=== PATIENT | female | born 1955 | race Caucasian/White ===

== ENCOUNTER 2021-03-03 11:00 | Inpatient (IN) | payer MEDICARE, SELFPAY ==
[2021-03-03] VITALS (16 sets, daily range): BP systolic 103–125; BP diastolic 50–84; PULSE 56–74; RESP 16–23; TEMP 36.8–38.2; O2SAT 93–100; BMI 37.0; BMI 14.9; BMI 38.5; BMI 38.6
--- NOTE | 2021-03-03 11:23 | CT_ITS ---
STUDY: CT ABDOMEN AND PELVIS WITH CONTRAST REASON FOR EXAM: Female, 65 years old. Right flank pain. Fever. Elevated white blood cell count. RADIATION DOSAGE (If Supplied By Facility): CTDIvol = ( 13.27 ) mGy, DLP = ( 1199.75 ) mGycm TECHNIQUE: Transaxial images were obtained from the dome of the diaphragm to the symphysis pubis without oral contrast. IV 100mL Isovue-300 was administered. Sagittal and coronal images were reconstructed. Individualized dose optimization techniques were used for this CT. COMPARISON: None. FINDINGS: The visualized lung bases are unremarkable. The visualized portions of the heart are within normal limits. There is decreased attenuation of the liver consistent with steatosis. There are surgical clips in the gallbladder fossa consistent with a prior cholecystectomy. Normal spleen. Normal pancreas. Normal bilateral adrenal glands. Mild degree of left hydronephrosis with left perinephric stranding. Punctate calculus in the lower pole calyx of the right kidney. There is evidence of a proximal right ureteral dilatation due to a 7.5 mm calculus in the proximal portion of the right ureter just distal to the ureteropelvic junction. There is a 3 mm calculus in the lower pole calyx of the left kidney. Normal visualized stomach. Normal small intestine. Normal colon. The appendix is visualized and appears normal. Normal abdominal aorta. Normal inferior vena cava. Normal retroperitoneum. Normal urinary bladder. There is a small umbilical hernia containing fat. The neck of the hernia measures 3.6 cm. There are diffuse degenerative changes of the visualized lumbar spine. CT/Abdomen/Pelvis W IV Cont ONLY IMPRESSION: 7.5 mm calculus in the proximal portion of the right ureter causing right hydronephrosis and hydroureter as well as perinephric stranding. Nonobstructive calculus in the lower pole calyx of both the right and left kidneys. Small umbilical hernia containing fat. Electronically Signed: Kalia Garnica MD at 13:28 EDT , Service support ,
--- NOTE | 2021-03-03 11:23 | CT_ITS ---
STUDY: CT HEAD STROKE PROTOCOL W/O CONTRAST INJECTION REASON FOR EXAM: Female, 65 years old. Fell and hit head on blood thinner RADIATION DOSAGE (If Supplied By Facility): CTDIvol = ( 44.99 ) mGy, DLP = ( 812.98 ) mGycm TECHNIQUE: Transaxial CT imaging of the brain was performed without administration of intravenous contrast material. Individualized dose optimization techniques were used for this CT. COMPARISON: Comparison is made with prior study dated 01/13/2016. FINDINGS: Normal soft tissue structures. Normal calvarium. Normal size ventricles and extra-axial spaces for the patient''s age. There are areas of decreased attenuation within the white matter tracts of the supratentorial brain, consistent with microvascular disease changes. 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 Normal brainstem. Normal cerebellum. There is no intracranial hemorrhage. There are no findings of an acute ischemic infarction. Normal visualized paranasal sinuses. CT/STROKE Brain/Head without Cont IMPRESSION: Old lacunar infarct in the left insular cortex. N.B. : The above information has been verbally conveyed by Kalia Garnica MD to Geoffrey Andriy on 03/03/2021 13:23:16 (ET). Electronically Signed: Kalia Garnica MD at 13:24 EDT , Service support ,
--- NOTE | 2021-03-03 11:25 | EDS_ITS ---
HPI History of Present Illness Chief Complaint: Weakness Informant: patient and family Onset/Context/Timing Onset: Days Context: Gradual Onset Current Severity: Mild Maximum Severity: Mild Narrative Narrative: 65-year-old female history of UTIs and kidney stones. She is on Eliquis due to her prior pulmonary embolus. States she has not really felt well since Monday. She has had nausea but no vomiting. No diarrhea or dysuria. States she was so weak last night that she fell into the bathtub and hit her head was having trouble getting up so she laid there for a while and then was able to get out of the tub. She denies any headache or neck pain. She denies any chest pain or shortness of breath. Says her abdominal discomfort she was having on the right flank area is now resolved. Prior similar symptoms: No Recent Illness/Hospitalization: No PFSH PFSH Medical History Hypertension Kidney stones Pulmonary embolism Home Medications duloxetine 30 mg PO BID 01/13/16 [History Last Taken Unknown] apixaban [Eliquis] 5 mg PO DAILY 03/03/21 [History Last Taken Unknown] lisinopril-hydrochlorothiazide 1 tab PO DAILY 03/03/21 [History Last Taken Unknown] topiramate 100 mg PO DAILY 03/03/21 [History Last Taken Unknown] Allergy/AdvReac Type Severity Reaction Status Date / Time No Known Allergies Allergy Verified 01/13/16 21:23 Surgical History Hx of cholecystectomy Social History Smoking Status: Never smoker ROS ROS ED ROS Narrative Older female states she has not felt well for last several days. Had abdominal pain that is since resolved. Denies any dysuria. Review of Systems ROS Unobtainable: Denies due to encephalopathy Constitutional Constitutional ED: Denies fever(s) Eyes Eyes: Denies change in vision ENT ENT ED: Denies ear pain or sore throat Cardiovascular Cardiovascular: Denies chest pain or palpitations Respiratory/Chest Respiratory/Chest: Denies cough or dyspnea Gastrointestinal Gastrointestinal: Reports abdominal pain and nausea; Denies diarrhea or vomiting Genitourinary Genitourinary ED: Denies dysuria, hematuria or urinary frequency Musculoskeletal Musculoskeletal: Denies arthralgias or myalgias Integumentary Denies rash Neurologic Neurologic: Denies headache(s) Psychiatric Psychiatric: Denies depression Endocrine Endocrinology: Denies polyuria Allergic/Immunologic Allergic/Immunologic ED: Denies urticaria EXAM Physical Exam Narrative Exam Narrative: Older female accompanied by her daughter. No acute distress. Vital signs stable afebrile. HEENT exam unremarkable. Atraumatic. No hematoma. Pupils are reactive light. Neck nontender. Lungs clear to auscultation bilaterally. Heart regular rhythm no murmur. Chest wall nontender. Abdomen soft nontender normal bowel sounds no peritoneal signs. No reproducible tenderness. Right upper and right lower quadrants are unre markable. Back nontender. Patient is moving all 4 extremities. Nontender without deformity. Normal range of motion. Normal building consultant strength. Normal dorsi plantar flexion. Neurologically she is awake alert with no focal motor deficits. Const Vital Signs: 03/03/21 11:01 03/03/21 11:13 03/03/21 11:23 Temperature 99 F Temperature Source Oral Pulse Rate 74 Respiratory Rate 23 H Respiratory Effort Normal Non-Labored Blood Pressure 114/52 L 125/74 H Blood Pressure Mean 72 91 Pulse Ox 93 Oxygen Delivery Method 03/03/21 13:14 03/03/21 13:16 Temperature 98.4 F Temperature Source Oral Pulse Rate 56 L Respiratory Rate 22 H Respiratory Effort Blood Pressure 103/84 H Blood Pressure Mean 90 Pulse Ox 97 Oxygen Delivery Method Room Air HEENT Reports moist mucous membranes Negative for trauma or tenderness Eyes PERRL and EOMs intact bilaterally Neck no lymphadenopathy and supple Chest Wall inspection of chest normal Resp normal respiratory effort and clear to auscultation bilaterally Cardio regular rate, regular rhythm and no murmurs GI normal to inspection, nondistended, normoactive bowel sounds, non-tender, non- distended and no masses Inspection: Negative for abdominal distention Auscultation: normoactive bowel sounds Palpation: soft; Negative for tender Back/Spine no CVA tenderness General Back: Negative for CVA tenderness Cervical Spine: Negative for cervical spine tenderness Thoracic Spine / Upper Back: Negative for thoracic spinal tenderness or paraspinal muscle tenderness Lumbar Spine / Lower Back: Negative for lumbar spinal tenderness Extremity normal to inspection General Extremety ED: Negative for edema or tenderness General Extremity: Negative for edema Neuro oriented x3 and CN's II-XII intact bilaterally Sensorium / Orientation: alert; Negative for orientation impaired, lethargic or stuporous Motor Exam: strength 5/5 throughout; Negative for general weakness Psych mental status grossly normal Skin no rashes or lesions noted MDM MDM MDM Narrative Medical decision making narrative: Older female with generalized weakness. Exam benign. She did recently fall and hit her head she is on Eliquis so we will CAT scan her head. Due to her abdominal pain which is since resolved she will get a CAT scan of her abdomen. Labs and urinalysis are being obtained. She will be treated with IV fluids and Zofran for her nausea. CBC showing elevated white count of 15.5 consistent with possible infection. Electrolytes basically unremarkable except for sodium 133. Potassium 3.0. BUN and creatinine are normal. Liver enzymes are unremarkable. Lipase normal. UA shows nitrates blood consistent with a kidney stone seen on CAT scan and 5-10 white cells no bacteria was seen. It was sent for culture. CT flank study shows a proximal third 7.5 mm ureteral stone on the right with hydroureter and hydronephrosis. I discussed all test results the patient and family. She was started on IV Rocephin. CAT scan of the brain showed no acute abnormality. No acute intracranial bleed. Read by the radiologist and reviewed by me. Repeat exam patient is doing well at 2:30 PM. I have hospitalist on page for admission and urologist. Lab Data Attestation: I reviewed the patient's lab results. Labs: Laboratory Results - last 24 hr 03/03/21 03/03/21 03/03/21 11:00 11:00 12:35 WBC 15.5 H RBC 4.35 Hgb 13.0 Hct 39.2 MCV 90.1 MCH 29.9 MCHC 33.2 RDW Std Deviation 44.6 H RDW Coeff of Yun 13.5 Plt Count 281 MPV 10.7 Immature Gran % (Auto) 0.600 Neut % (Auto) 82.8 H Lymph % (Auto) 8.1 L [place] % (Auto) 5.4 Eos % (Auto) 2.8 Baso % (Auto) 0.3 Absolute Neuts (auto) 12.9 H Absolute Lymphs (auto) 1.26 Nucleated RBC % 0 Sodium 133 L Potassium 3.0 L Chloride 105 Carbon Dioxide 18.0 L Anion Gap 10 BUN 16 Creatinine 1.02 Estim Creat Clear Calc 43.49 Est GFR (MDRD) Af Amer 70 Est GFR (MDRD) Non-Af 58 L BUN/Creatinine Ratio 15.7 Glucose 156 H Calcium 9.7 Total Bilirubin 1.20 H AST 16 ALT 15 Alkaline Phosphatase 86 Total Protein 7.4 Albumin 3.0 L Globulin 4.4 H Albumin/Globulin Ratio 0.7 L Lipase 60 L Urine Color Becca Urine Clarity Cloudy Urine pH 5.0 Ur Specific [place] 1.025 Urine Protein 100 H Urine Glucose (UA) Normal Urine Ketones 5 H Urine Occult Blood 250 H Urine Nitrite Positive H Urine Bilirubin 1 H Urine Urobilinogen 1 H Ur Leukocyte Esterase 500 H Urine RBC > 100 SEEN Urine WBC 5-10 SEEN Ur Squamous Epith Cells 0 SEEN Urine Bacteria 0 SEEN Urine Mucus 2+ Radiography Diagnostic Testing: Radiology Impression Abdomen/Pelvis CT 03/03/21 11:23 IMPRESSION: 7.5 mm calculus in the proximal portion of the right ureter causing right hydronephrosis and hydroureter as well as perinephric stranding. Nonobstructive calculus in the lower pole calyx of both the right and left kidneys. Small umbilical hernia containing fat. 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 N.B. : The above information has been verbally conveyed by Kalia Garnica MD to Geoffrey Ashraf on 03/03/2021 13:23:16 (ET). 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 N.B. : The above information has been verbally conveyed by Kalia Garnica MD to Geoffrey Ashraf on 03/03/2021 13:23:16 (ET). Electronically Signed: Kalia Garnica MD at 13:24 EDT , Service support , Discharge Plan Triage Chief Complaint: Weakness ED Provider: Hugh Ashraf Dx/Rx/DC Orders Clinical Impression: Generalized weakness, Kidney stone on right side, Acute UTI, Leukocytosis, Fall Primary Care Provider: Joe Carmichael
[2021-03-03 11:41] LABS: Absolute Lymphocyte Count 1.26 X10^3/uL (0.83-4.51); Absolute Neutrophil Count 12.9 X10^3/uL (2.0-7.7); Basophil# 0.04 X10^3/uL; Basophil% 0.3 % (0-1); Eosinophil# 0.43 X10^3/uL; Eosinophils% 2.8 % (0-5); Hematocrit 39.2 % (37-47); Lymphocyte # 1.26 X10^3/ul (0.83-4.51); Lymphocyte % 8.1 % (19-41); Mean Corp Hgb Conc 33.2 g/dL (32-36); Mean Corpuscular Hgb 29.9 pg (27.0-32.0); Mean Corpuscular Volume 90.1 fL (81-99); Mean Platelet Vol. 10.7 fl (6.2-12.0); Monocyte# 0.84 X10^3/uL; Monocyte% 5.4 % (0-10); NRBC Flagged by Analyzer 0 % (0-5); Neutrophil # 12.88 X10^3/uL (2.7-7.7); Neutrophil % 82.8 % (47-70); Platelet Count 281 K/mm3 (150-450); RBC Distribution Width CV 13.5 % (11.6-14.6); RBC Distribution Width SD 44.6 fl (35.1-43.9); Red Blood Count 4.35 M/mm3 (4.2-5.4); White Blood Count 15.5 K/mm3 (4.4-11.0)
[2021-03-03] MEDS: 0.9% Normal Saline 1,000 ML 1000 ML IV (11:43)
[2021-03-03] MEDS: Ondansetron 4 MG/2 ML Vial IV (11:43)
[2021-03-03 11:51] LABS: ALB/GLOB Ratio 0.7 RATIO (0.9-2.4); AST(SGOT) 16 U/L (15-37); Alanine Aminotransfer ALT/SGPT 15 U/L (13-56); Alkaline Phosphatase 86 U/L (45-117); Anion Gap 10 (5-15); BUN 16 mg/dL (7-18); BUN/Creat Ratio 15.7 RATIO (10-20); Calcium,Total 9.7 mg/dL (8.5-10.1); Chloride 105 mmol/L (98-107); Creatinine, Serum 1.02 mg/dL (0.55-1.02); EST Glomerular Filtration Rate 58 mL/min (>60); Est Glom Filt Rate - Afr Amer 70 mL/min (>60); Estimated Creatinine Clearance 43.49 ml/min; Globulin 4.4 g/dL (2.2-4.2); Glucose 156 mg/dL (74-106); Lipase 60 U/L (73-393); Protein, Total 7.4 g/dL (6.4-8.2); Sodium Level 133 mmol/L (136-145)
[2021-03-03 12:40] LABS: Bacteria 0 SEEN /hpf (None Seen); Color, Urine Amber (Yellow); Glucose, Dipstick Normal (Normal); Ketone-Dipstick 5 mg/dl (Negative); Leukocyte Esterase-Dipstick 500 /ul (Negative); Nitrite-Dipstick Positive (Negative); Occult Blood-Urine 250 /ul (Negative); Protein-Dipstick 100 mg/dl (Negative); Specific Gravity, Urine 1.025 (1.002-1.030); Squamous Epithelial Cells - UA 0 SEEN /hpf (5-10); Urine Clarity Cloudy (Clear); Urine Urobilinogen 1 mg/dl (Normal)
[2021-03-03 12:41] LABS: Urine Bilirubin Dipstick 1 mg/dL (Negative)
[2021-03-03 12:47] LABS: Mucous, Urine 2+ /hpf (<or=2+); Red Blood Cells-Urine > 100 SEEN /hpf (0-5); White Blood Cells 5-10 SEEN /hpf (0-5)
--- NOTE | 2021-03-03 14:43 | PCM.CONS.U ---
Assessment & Plan Assessment/Plan (1) Kidney stone on right side: PLAN: plan for OR today for stent placement for obstruction and infection. to or first available time. HPI Consult Data Date of Consult: 03/03/21 HPI Narrative HPI Narrative: JOSLYN ABRAHAM, is a 65 F who presents to the emergency room with right flank pain she has obstructing stone in the right proximal ureter with hydronephrosis she can be admitted by the medical service for her urinary tract infection. Plan to take her today for stent placement of the right side. [facility] Medical History Hypertension Kidney stones Pulmonary embolism Home Medications duloxetine 30 mg PO BID 01/13/16 [History Last Taken Unknown] apixaban [Eliquis] 5 mg PO DAILY 03/03/21 [History Last Taken Unknown] lisinopril-hydrochlorothiazide 1 tab PO DAILY 03/03/21 [History Last Taken Unknown] topiramate 100 mg PO DAILY 03/03/21 [History Last Taken Unknown] Allergy/AdvReac Type Severity Reaction Status Date / Time No Known Allergies Allergy Verified 01/13/16 21:23 Surgical History Hx of cholecystectomy Social History Smoking Status: Never smoker ROS Constitutional Constitutional: Denies chills, fever(s) or malaise Eyes Eyes: Denies blurry vision or change in vision ENT HEENT: Reports none Cardiovascular Cardiovascular: Denies chest pain or palpitations Respiratory/Chest Respiratory/Chest: Denies cough or shortness of breath with exertion Gastrointestinal Gastrointestinal: Denies abdominal pain, constipation or diarrhea Genitourinary Genitourinary: Reports systems reviewed and no addt'l complaints, except as documented Musculoskeletal Musculoskeletal: Denies back pain, joint stiffness or joint swelling Integumentary Integumentary: Denies dry skin, jaundice, lesions or rash Neurologic Neurologic: Denies confusion, syncope or weakness Psychiatric Psychiatric: Reports none; Denies anxiety or depression Endocrine Endocrinology: Denies excessive sweating, fatigue or flushing Hematologic/Lymphatic Hematologic/Lymphatic: Denies anemia, easy bleeding or easy bruising Physical Exam Const alert and oriented x3 General Appearance: cooperative HEENT normocephalic, head/scalp atraumatic, EAC's normal and TM's normal bilaterally Eyes PERRL and EOMs intact bilaterally Pupil: sluggish Neck no lymphadenopathy, supple and no JVD General: trachea midline Lymph Lymphatic: no lymphadenopathy noted, lymphedema and lymphadenopathy Resp normal respiratory effort, normal air movement and clear to auscultation bilaterally Cardio regular rate, regular rhythm and peripheral pulses 2+ throughout GI soft to palpation, non-tender and non-distended Extremity normal capillary refill and no clubbing, cyanosis or edema General Extremity: no tenderness to palpation of joints or extremities Skin no rashes or lesions noted General Skin Exam: turgor normal Lesions: no lesions Rashes: no rashes Neuro CN's II-XII intact bilaterally Speech: speech normal Motor Exam: strength 5/5 throughout; Negative for general weakness Psych thought process normal, cooperative and affect normal Appearance: appropriate Lab / Micro Data Result Diagrams: 03/03/21 11:00 03/03/21 11:00 Labs: Laboratory Results - last 24 hr 03/03/21 03/03/21 03/03/21 11:00 11:00 12:35 WBC 15.5 H RBC 4.35 Hgb 13.0 Hct 39.2 MCV 90.1 MCH 29.9 MCHC 33.2 RDW Std Deviation 44.6 H RDW Coeff of Yun 13.5 Plt Count 281 MPV 10.7 Immature Gran % (Auto) 0.600 Neut % (Auto) 82.8 H Lymph % (Auto) 8.1 L [place] % (Auto) 5.4 Eos % (Auto) 2.8 Baso % (Auto) 0.3 Absolute Neuts (auto) 12.9 H Absolute Lymphs (auto) 1.26 Nucleated RBC % 0 Sodium 133 L Potassium 3.0 L Chloride 105 Carbon Dioxide 18.0 L Anion Gap 10 BUN 16 Creatinine 1.02 Estim Creat Clear Calc 43.49 Est GFR (MDRD) Af Amer 70 Est GFR (MDRD) Non-Af 58 L BUN/Creatinine Ratio 15.7 Glucose 156 H Calcium 9.7 Total Bilirubin 1.20 H AST 16 ALT 15 Alkaline Phosphatase 86 Total Protein 7.4 Albumin 3.0 L Globulin 4.4 H Albumin/Globulin Ratio 0.7 L Lipase 60 L Urine Color Becca Urine Clarity Cloudy Urine pH 5.0 Ur Specific [place] 1.025 Urine Protein 100 H Urine Glucose (UA) Normal Urine Ketones 5 H Urine Occult Blood 250 H Urine Nitrite Positive H Urine Bilirubin 1 H Urine Urobilinogen 1 H Ur Leukocyte Esterase 500 H Urine RBC > 100 SEEN Urine WBC 5-10 SEEN Ur Squamous Epith Cells 0 SEEN Urine Bacteria 0 SEEN Urine Mucus 2+ Radiology Impression Abdomen/Pelvis CT 03/03/21 11:23 IMPRESSION: 7.5 mm calculus in the proximal portion of the right ureter causing right hydronephrosis and hydroureter as well as perinephric stranding. Nonobstructive calculus in the lower pole calyx of both the right and left kidneys. Small umbilical hernia containing fat. 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 N.B. : The above information has been verbally conveyed by Kalia Garnica MD to Geoffrey Ashraf on 03/03/2021 13:23:16 (ET). Electronically Signed: Kalia Garnica MD at 13:24 EDT , Service support , ADDENDUM: 03/03/21 1331
--- NOTE | 2021-03-03 14:51 | HP.PCM.HOS_ITS ---
HPI - General General Date of Admission: 03/03/21 Date of Service: 03/03/21 Chief Complaint: R flank pain, Nausea, Malaise, Fever, Falls. HPI Narrative The patient is a 65 y/o F w/ PMHx: History of PE/DVTs on eliquis, HTN, Anxiety and Depression, Obesity who presents to the [facility] ED on 03/03/21 with history of recent episode of right-sided flank discomfort, rated when it occurred 7-8 out of 10 in severity, sharp, which was transient and she noted improved following usage of a K pad and rest however she then started to have onset significant fatigue, malaise, nausea without emesis in addition to significantly elevated fevers, chills and onset falls with lightheadedness and dizziness prompting eventual ED presentation for evaluation. Patient denies any specific dysuria associated with her acute presentation. ED work-up included T 99, heart rate 74, BP 114/52, respiratory rate 23, 97% on room air, CBC with WBC 15.5, hemoglobin 13, platelet 281 with left shift, CMP with sodium 133, potassium 3,, Dex at 18, BUN/creatinine 16/1.02, glucose 156, total bilirubin 1.20 otherwise hepatic profile not marked appearing, lipase 60, urine analysis with specific gravity 1.025, protein 100, ketone 5, occult blood 250, positive nitrite, urine bilirubin 1, urine urobilinogen 1, urine leukocyte esterase 500, greater than 100 urine RBC, 5-10 urine WBC, no urine specific bacteria noted, urine culture pending, CT abdomen and pelvis with 7.5 mm calculus in the proximal portion of the right ureter causing right hydronephrosis and hydroureter as well as perinephric stranding, nonobstructive calculus lower in the lower pole calyx of both right and left kidneys, small umbilical hernia containing fat. In the ED patient ministered IV Rocephin as well as IV fluids. ED physician did discuss case with urologist, Dr. Boogie with planned transition from the ED to the OR. [facility] Medical History (Updated 03/03/21 @ 14:[address] Hugh Ashraf MD) Hypertension Kidney stones Pulmonary embolism Home Medications duloxetine 30 mg PO BID 01/13/16 [History Last Taken 03/03/21] apixaban [Eliquis] 5 mg PO DAILY 03/03/21 [History Last Taken 03/03/21] bupropion HCl [Wellbutrin XL] 75 mg PO DAILY 03/03/21 [History Last Taken 03/03/21] lisinopril-hydrochlorothiazide 1 tab PO DAILY 03/03/21 [History Last Taken 03/03/21] topiramate 100 mg PO DAILY 03/03/21 [History Last Taken 03/03/21] Allergy/AdvReac Type Severity Reaction Status Date / Time No Known Allergies Allergy Verified 03/03/21 15:44 Family History (Updated 03/03/21 @ 18:[address] Angelita Garcia MD) Mother Lung disease Father Kidney disease Surgical History (Updated 03/03/21 @ 18:[address] Angelita Garcia MD) History of 3 sections Hx of cholecystectomy Social History (Updated 03/03/21 @ 18:[address] Angelita Garcia MD) household members: none Smoking Status: Never smoker alcohol intake: never substance use type: does not use ROS ROS Narrative Admission Review of Systems: CONSTITUTIONAL: No weight loss,+ fever, chills, weakness or fatigue. HEENT: Eyes: No visual loss, blurred vision, double vision or yellow sclerae. Ears, Nose, Throat: No hearing loss, sneezing, congestion, runny nose or sore throat. SKIN: No rash or itching, lesions, wounds. CARDIOVASCULAR: No chest pain, chest pressure or chest discomfort, palpitations, edema, orthopnea, syncopal events. RESPIRATORY: No shortness of breath, cough or sputum, wheezing, hemoptysis. GASTROINTESTINAL: + anorexia, nausea without vomiting, abdominal pain/flank pain, no diarrhea, melena, BRBPR. GENITOURINARY: No dysuria, frequency, urgency or retention. NEUROLOGICAL: + Lightheadedness, dizziness, fall. No headache, syncope, paralysis, ataxia, numbness or tingling in the extremities, focal weakness, change in bowel or bladder control, seizure. MUSCULOSKELETAL: + muscle, back pain, joint pain or stiffness. HEMATOLOGIC: No anemia, bleeding or bruising. LYMPHATICS: No enlarged nodes. No history of splenectomy. PSYCHIATRIC: + history of depression or anxiety. ENDOCRINOLOGIC: No reports of sweating, cold or heat intolerance. No polyuria or polydipsia. ALLERGIES: No history of asthma, hives, eczema or rhinitis. Vital Signs Vital Signs Vital Signs: 03/03/21 11:01 03/03/21 11:13 03/03/21 11:23 Temperature 99 F Temperature Source Oral Pulse Rate 74 Respiratory Rate 23 H Respiratory Effort Normal Non-Labored Blood Pressure 114/52 L 125/74 H Blood Pressure Mean 72 91 Pulse Ox 93 Oxygen Delivery Method 03/03/21 13:14 03/03/21 13:16 Temperature 98.4 F Temperature Source Oral Pulse Rate 56 L Respiratory Rate 22 H Respiratory Effort Blood Pressure 103/84 H Blood Pressure Mean 90 Pulse Ox 97 Oxygen Delivery Method Room Air Weight Weight: 202 lb 13.204 oz Body Mass Index (BMI) 37.0 Physical Exam Narrative Physical Examination: General: awake, alert, oriented x 3 and cooperative, laying in the ED bed, visibly uncomfortable, notes she still nauseated. Skin: normal color, normal turgor, no icterus, no cyanosis. HEENT: AT/NC, EOMI, PERRLA, dry MM, no carotid bruits or JVD noted. Lungs: CTA bilaterally, moderate effort, mild decrease BL bases, no rales, ronchi or wheezing. Heart: Regular rate and rhythm; no gallop, rub audible. Abdomen: soft, obese, mild discomfort just right-sided palpation and mild right flank pain to palpation, ND, distant normal BS, no HSM. Extremities: no cyanosis, clubbing, or edema. Neurological: patient awake, alert, oriented as noted, cognitive function intact; pupils equally reactive to light and accommodation, cranial nerves II- XII grossly normal, moving all 4 extremities, no focal deficits, strength moderately global decrease secondary to acute presentation complaints. Psychiatric: affect appears fatigued, ill-appearing, no acute evidence of depressive or anxiety feelings. Lab / Micro Data Result Diagrams: 03/03/21 11:00 03/03/21 11:00 Labs: Laboratory Results - last 24 hr 03/03/21 03/03/21 03/03/21 11:00 11:00 12:35 WBC 15.5 H RBC 4.35 Hgb 13.0 Hct 39.2 MCV 90.1 MCH 29.9 MCHC 33.2 RDW Std Deviation 44.6 H RDW Coeff of Yun 13.5 Plt Count 281 MPV 10.7 Immature Gran % (Auto) 0.600 Neut % (Auto) 82.8 H Lymph % (Auto) 8.1 L [place] % (Auto) 5.4 Eos % (Auto) 2.8 Baso % (Auto) 0.3 Absolute Neuts (auto) 12.9 H Absolute Lymphs (auto) 1.26 Nucleated RBC % 0 Sodium 133 L Potassium 3.0 L Chloride 105 Carbon Dioxide 18.0 L Anion Gap 10 BUN 16 Creatinine 1.02 Estim Creat Clear Calc 43.49 Est GFR (MDRD) Af Amer 70 Est GFR (MDRD) Non-Af 58 L BUN/Creatinine Ratio 15.7 Glucose 156 H Calcium 9.7 Total Bilirubin 1.20 H AST 16 ALT 15 Alkaline Phosphatase 86 Total Protein 7.4 Albumin 3.0 L Globulin 4.4 H Albumin/Globulin Ratio 0.7 L Lipase 60 L Urine Color Becca Urine Clarity Cloudy Urine pH 5.0 Ur Specific [place] 1.025 Urine Protein 100 H Urine Glucose (UA) Normal Urine Ketones 5 H Urine Occult Blood 250 H Urine Nitrite Positive H Urine Bilirubin 1 H Urine Urobilinogen 1 H Ur Leukocyte Esterase 500 H Urine RBC > 100 SEEN Urine WBC 5-10 SEEN Ur Squamous Epith Cells 0 SEEN Urine Bacteria 0 SEEN Urine Mucus 2+ Radiology Impression Abdomen/Pelvis CT 03/03/21 11:23 IMPRESSION: 7.5 mm calculus in the proximal portion of the right ureter causing right hydronephrosis and hydroureter as well as perinephric stranding. Nonobstructive calculus in the lower pole calyx of both the right and left kidneys. Small umbilical hernia containing fat. 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 N.B. : The above information has been verbally conveyed by Kalia Garnica MD to Geoffrey Ashraf on 03/03/2021 13:23:16 (ET). 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 N.B. : The above information has been verbally conveyed by Kalia Garnica MD to Geoffrey Ashraf on 03/03/2021 13:23:16 (ET). 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 1. Acute Flank Pain, Fevers, Malaise secondary to Acute Obstructive Right Sided Ureteral Obstructive Calculus with Hydronephrosis/hydroureter, Acute UTI: Will admit to [facility], maintain on aggressive hydration, maintain on IV Rocephin, maintain NPO for intervention w/ diet resumption following, PRN IV/Oral pain regimen, PRN anti-emetics, monitor I&Os. Urology consulted and planned transition from ED to OR. 2. Lightheadedness, dizziness with falls: CT of the head with no acute intracranial finding, incidental stroke as noted below, likely secondary to #1, continue hydration, fall precautions. 3. Hypokalemia: Admission K+ 3.0, magnesium level pending, supplementation given, repeat level in AM. 4. Hyperglycemia: Admission glucose 156, no history of diabetes but especially given incidental findings on CT head will obtain A1c. 5. Incidentally noted old lacunar infarct: CT of the head obtained secondary to recent fall with noted old lacunar infarct in the left insular cortex, currently maintained on Eliquis given DVT/PE history, obtaining A1c given elevated blood sugars, continue hypertensive regimen, FLP in AM, TSH pending, ECHO w/ bubble study. 6. History of recurrent DVT/PE: We will continue patient home Eliquis regimen, currently listing 5 mg daily, likely 5 mg twice daily, will restart in a.m. given operative intervention currently. Patient denies any hypercoagulable history but unclear if actually performed studies. 7. Obesity: Weight loss and lifestyle changes encouraged. 8. Anxiety and depression: We will continue patient home duloxetine and wellbutrin regimen. 9. Hypertension: Continue home regimen including lisinopril, hydrochlorothiazide with hold parameters, PRN hydralazine. 10. Trigeminal neuralgia, history of: We will continue patient home topiramate regimen. 11. DVT prophylaxis: SCDs, continue patient home Eliquis next dose in a.m. given operative intervention currently. 12. CODE status: Patient denies having healthcare power of civil attorney or living will in place. Daughter is present. She notes she is interested in getting information therefore encourage her to discuss these items with case management/social work. Discussed CODE status at length including difference between FULL code, DNR-CCA and DNR-CC status. Following discussions about the differences in these status, requested Full Code status. Advanced Care Planning Face to Face Time: 16 minutes. Visit Charges Inpatient E&M: 85669 Init Hosp L3 Procedures Hospitalists Procedures: 76069 Advncd Care Plan 30 Min
--- NOTE | 2021-03-03 15:11 | ED.RN ---
REPORT GIVEN TO JAHAIRA
--- NOTE | 2021-03-03 15:17 | NURSING ---
OR THEN MED SURG WHITE UTI, RT URETERAL KIDNEY STONE, WEAKNESS, LEUKOCYTOSIS, FALLS
[2021-03-03] MEDS: Ceftriaxone 1 GM/50 ML BAG IV (15:53)
--- NOTE | 2021-03-03 16:18 | PCM.OPRPT ---
Report of Operation Date of Procedure: 03/03/21 Pre-Operative Diagnosis: Right obstructing ureteral calculi with sepsis Post-Operative Diagnosis: Same Surgery/Procedure Performed:: Cystoscopy right retrograde pyelogram right stent placement Description of Surgical Findings:: Patient was taken back to the operating room after induction of general anesthesia, the patient was placed in dorsolithotomy position. The urethra and genitals were prepped and draped in usual sterile fashion. Using a 21 Pakistani rigid cystourethroscope the entire length of the urethra was normal then went into the bladder. Identified the trigone the left and right ureteral orifice. I then cannulated the rigth orifice and advanced a wire up into the kidney. I then backloaded a 5 Pakistani open ended catheter over the wire and injected contrast to delineate the anatomy. Contrast was injected into the ureter he can see contrast going up to the kidney in a smooth fashion there were no filling defects stones along the course of the ureter the kidney filled out nicely with no filling defects within the kidney. After the retrograde was performed I then used fluoroscopic images and guidance to advanced a wire up into the kidney and over the 0.038 glidewire I advanced a 6 Pakistani by 26 cm double pigtail stent. I then pulled the 0.038 Glidewire off and the stent coiled in the kidney bladder good position. The bladder was then drained. We confirmed the position of the stent by fluoroscopy. Patient anesthetic was reversed and was taken back to the PACU in good condition. Surgeon: diana Type of Anesthesia: MAC and Topical Anesth Drains: right stent Admit VTE Documentation VTE Present on Admission: No VTE Mechan Device Prophylaxis: SCD's
[2021-03-03] MEDS: Lidocaine Jelly 2% 20 ML Syringe (URO-JET) 20 APPLIC (16:24)
--- NOTE | 2021-03-03 16:53 | ECHOD_ITS ---
Reason For Study: CVA Procedure This was a 2D Doppler, Color Flow transthoracic echocardiogram. Exam performed portable in patient room. Left Ventricle Normal LV size. The estimated ejection fraction is 65 %. Normal diastology for age. No regional wall motion abnormalities noted. Right Ventricle Normal RV size. Normal systolic function. Atria Normal left atrium. Normal right atrium. No doppler evidence for ASD. Bubble contrast study negative for right to left interatrial shunt. Mitral Valve There is no mitral valve stenosis. No mitral valve insufficiency. Tricuspid Valve There is no tricuspid stenosis. Mild tricuspid valve insufficiency. Pulmonary artery systolic pressure is 30-35 mmHg. Aortic Valve Trisinus/trileaflet aortic valve. There is no aortic stenosis. No aortic valve insufficiency. Pulmonic Valve There is no pulmonic valvular stenosis. No pulmonic valve insufficiency. Great Vessels Normal aortic root. Pericardium/Pleural No pericardial effusion. Medication Performed a rapid injection of agitated mix of 9 cc saline and 1cc air to assess for atrial septal defect. MMode/2D Measurements & Calculations LVIDd: 4.8 cm IVSd: 0.82 cm Ao root diam: 3.2 cm LVIDs: 3.4 cm LVPWd: 0.94 cm RVDd: 3.5 cm FS: 29.1 % LAV(MOD-bp): 62.0 ml LVAd ap4: 28.1 cm2 LVAd ap2: 26.6 cm2 LAV(MOD-bp) Indexed: 31.7 ml/m2 LVLd ap4: 7.8 cm LVLd ap2: 7.7 cm LAV(MOD-sp2): 54.2 ml EDV(MOD-sp4): 82.7 ml EDV(MOD-sp2): 74.9 ml LAV(MOD-sp4): 66.8 ml EDV(sp4-el): 85.9 ml EDV(sp2-el): 78.0 ml LVAs ap4: 15.5 cm2 LVAs ap2: 13.4 cm2 LVLs ap4: 6.6 cm LVLs ap2: 6.6 cm ESV(MOD-sp4): 30.5 ml ESV(MOD-sp2): 24.0 ml ESV(sp4-el): 31.1 ml ESV(sp2-el): 23.1 ml EF(MOD-sp4): 63.1 % EF(MOD-sp2): 67.9 % EF(sp4-el): 63.8 % SV(MOD-sp4): 52.2 ml SV(MOD-sp2): 50.8 ml SV(sp4-el): 54.8 ml LA A4 area: 22.7 cm2 LA dimension(2D): 3.5 cm RA A4 area: 19.4 cm2 Doppler Measurements & Calculations MV E max marquis: 100.9 cm/sec Lat Peak E' Marquis: 15.0 cm/sec Med Peak E' Marquis: 11.9 cm/sec MV A max marquis: 51.4 cm/sec E/E' lat: 6.7 E/E' med: 8.5 MV E/A: 2.0 Ao V2 max: 173.9 cm/sec LV V1 max: 134.2 cm/sec PA V2 max: 102.5 cm/sec Ao max P.1 mmHg LV V1 max P.2 mmHg TR max marquis: 259.5 cm/sec TR max P.0 mmHg ECHO/Echo Complete Interpretation Summary The estimated ejection fraction is 65 %. Normal diastology for age. Ordering Physician: Angelita Garcia Referring Physician: Joe Carmichael M.D. Performed By: Joann Sandhu RDCS
[2021-03-03 16:58] LABS: Magnesium 1.6 mg/dL (1.6-2.6)
[2021-03-03] MEDS: Potassium Chloride Oral Tablet 20 MEQ 40 MEQ PO (20:16)
[2021-03-03] MEDS: DULoxetine Hcl 30 MG Capsule PO (22:14)
[2021-03-03] MEDS: Acetaminophen 325 MG Tablet 650 MG PO (22:23)
[2021-03-04] VITALS (7 sets, daily range): BP systolic 93–113; BP diastolic 48–61; PULSE 59–67; RESP 16–18; TEMP 36.7–37.9; O2SAT 97–100; BMI 38.6
[2021-03-04] MEDS: 0.9% Normal Saline 1,000 ML 125 ML IV ×2 (01:56→12:09)
[2021-03-04 05:55] LABS: Absolute Lymphocyte Count 1.02 X10^3/uL (0.83-4.51); Absolute Neutrophil Count 11.4 X10^3/uL (2.0-7.7); Basophil# 0.04 X10^3/uL; Basophil% 0.3 % (0-1); Eosinophil# 0.07 X10^3/uL; Eosinophils% 0.5 % (0-5); Hematocrit 36.4 % (37-47); Hemoglobin 11.9 g/dL (12.0-15.0); Lymphocyte # 1.02 X10^3/ul (0.83-4.51); Lymphocyte % 7.3 % (19-41); Mean Corp Hgb Conc 32.7 g/dL (32-36); Mean Corpuscular Hgb 30.1 pg (27.0-32.0); Mean Corpuscular Volume 91.9 fL (81-99); Mean Platelet Vol. 10.2 fl (6.2-12.0); Monocyte# 1.29 X10^3/uL; Monocyte% 9.3 % (0-10); NRBC Flagged by Analyzer 0 % (0-5); Neutrophil # 11.44 X10^3/uL (2.7-7.7); Neutrophil % 82.2 % (47-70); Platelet Count 203 K/mm3 (150-450); RBC Distribution Width CV 13.7 % (11.6-14.6); RBC Distribution Width SD 47.1 fl (35.1-43.9); Red Blood Count 3.96 M/mm3 (4.2-5.4); White Blood Count 13.9 K/mm3 (4.4-11.0)
[2021-03-04] MEDS: APIXABAN 5 MG TABLET PO ×2 (05:56→21:50)
[2021-03-04 06:30] LABS: ALB/GLOB Ratio 0.6 RATIO (0.9-2.4); AST(SGOT) 34 U/L (15-37); Alanine Aminotransfer ALT/SGPT 29 U/L (13-56); Albumin, Serum 2.4 g/dL (3.2-5.0); Alkaline Phosphatase 91 U/L (45-117); Anion Gap 7 (5-15); BUN 11 mg/dL (7-18); BUN/Creat Ratio 14.2 RATIO (10-20); Calcium,Total 9.1 mg/dL (8.5-10.1); Chloride 108 mmol/L (98-107); Cholesterol 105 mg/dL (200); Creatinine, Serum 0.78 mg/dL (0.55-1.02); EST Glomerular Filtration Rate 79 mL/min (>60); Est Glom Filt Rate - Afr Amer 96 mL/min (>60); Estimated Creatinine Clearance 56.87 ml/min; Globulin 3.9 g/dL (2.2-4.2); Glucose 119 mg/dL (74-106); High Density Lipoprotein 50 mg/dL; Potassium 3.6 mmol/L (3.5-5.1); Protein, Total 6.3 g/dL (6.4-8.2); Sodium Level 137 mmol/L (136-145); Triglycerides 56 mg/dL; Very Low Density Lipoprotein 11 mg/dL (5-40)
--- NOTE | 2021-03-04 07:46 | PCM.CONS.U ---
HPI Consult Data Date of Consult: 03/04/21 HPI Narrative HPI Narrative: JOSLYN ABRAHAM, is a 65 F who presents to the hospital with obstructing stone and sepsis, this morning she feels better no more pain still has a low-grade fever urine culture still pending. She is on broad-spectrum antibiotics appropriately. Subjectively improved. [facility] Medical History (Updated 03/03/21 @ 20:23 by Kathryn Das) Anxiety Depression Hypertension Kidney stones Pulmonary embolism Home Medications apixaban [Eliquis] 5 mg PO DAILY 03/03/21 [History Last Taken 03/03/21] bupropion HCl [Wellbutrin XL] 75 mg PO DAILY 03/03/21 [History Last Taken 03/03/21] duloxetine 60 mg PO DAILY 03/03/21 [History Last Taken Unknown] lisinopril-hydrochlorothiazide 1 tab PO DAILY 03/03/21 [History Last Taken 03/03/21] topiramate 100 mg PO DAILY 03/03/21 [History Last Taken 03/03/21] Allergy/AdvReac Type Severity Reaction Status Date / Time No Known Allergies Allergy Verified 03/03/21 15:44 Family History (Updated 03/03/21 @ 18:[address] Angelita Garcia MD) Mother Lung disease Father Kidney disease Surgical History (Updated 03/03/21 @ 18:[address] Angelita Garcia MD) History of 3 sections Hx of cholecystectomy Social History (Updated 03/03/21 @ 18:[address] Angelita Garcia MD) household members: none Smoking Status: Never smoker alcohol intake: never substance use type: does not use ROS Eyes Eyes: Denies blurry vision or change in vision ENT HEENT: Reports none Cardiovascular Cardiovascular: Denies chest pain or palpitations Respiratory/Chest Respiratory/Chest: Denies cough or shortness of breath with exertion Gastrointestinal Gastrointestinal: Denies abdominal pain, constipation or diarrhea Genitourinary Genitourinary: Reports systems reviewed and no addt'l complaints, except as documented Musculoskeletal Musculoskeletal: Denies back pain, joint stiffness or joint swelling Integumentary Integumentary: Denies dry skin, jaundice, lesions or rash Neurologic Neurologic: Denies confusion, syncope or weakness Psychiatric Psychiatric: Reports none; Denies anxiety or depression Endocrine Endocrinology: Denies excessive sweating, fatigue or flushing Hematologic/Lymphatic Hematologic/Lymphatic: Denies anemia, easy bleeding or easy bruising Physical Exam Const alert and oriented x3 General Appearance: cooperative HEENT normocephalic, head/scalp atraumatic, EAC's normal and TM's normal bilaterally Eyes PERRL and EOMs intact bilaterally Pupil: sluggish Neck no lymphadenopathy, supple and no JVD General: trachea midline Lymph Lymphatic: no lymphadenopathy noted, lymphedema and lymphadenopathy Resp normal respiratory effort, normal air movement and clear to auscultation bilaterally Cardio regular rate, regular rhythm and peripheral pulses 2+ throughout GI soft to palpation, non-tender and non-distended Extremity normal capillary refill and no clubbing, cyanosis or edema General Extremity: no tenderness to palpation of joints or extremities Skin no rashes or lesions noted General Skin Exam: turgor normal Lesions: no lesions Rashes: no rashes Neuro CN's II-XII intact bilaterally Speech: speech normal Motor Exam: strength 5/5 throughout; Negative for general weakness Psych thought process normal, cooperative and affect normal Appearance: appropriate Lab / Micro Data Result Diagrams: 03/04/21 05:30 03/04/21 05:30 Labs: Laboratory Results - last 24 hr 03/03/21 03/03/21 03/03/21 11:00 11:00 11:00 WBC 15.5 H RBC 4.35 Hgb 13.0 Hct 39.2 MCV 90.1 MCH 29.9 MCHC 33.2 RDW Std Deviation 44.6 H RDW Coeff of Yun 13.5 Plt Count 281 MPV 10.7 Immature Gran % (Auto) 0.600 Neut % (Auto) 82.8 H Lymph % (Auto) 8.1 L [place] % (Auto) 5.4 Eos % (Auto) 2.8 Baso % (Auto) 0.3 Absolute Neuts (auto) 12.9 H Absolute Lymphs (auto) 1.26 Nucleated RBC % 0 Sodium 133 L Potassium 3.0 L Chloride 105 Carbon Dioxide 18.0 L Anion Gap 10 BUN 16 Creatinine 1.02 Estim Creat Clear Calc 43.49 Est GFR (MDRD) Af Amer 70 Est GFR (MDRD) Non-Af 58 L BUN/Creatinine Ratio 15.7 Glucose 156 H Calcium 9.7 Magnesium 1.6 Total Bilirubin 1.20 H AST 16 ALT 15 Alkaline Phosphatase 86 Total Protein 7.4 Albumin 3.0 L Globulin 4.4 H Albumin/Globulin Ratio 0.7 L Triglycerides Cholesterol LDL Cholesterol VLDL Cholesterol HDL Cholesterol Lipase 60 L TSH Urine Color Urine Clarity Urine pH Ur Specific [place] Urine Protein Urine Glucose (UA) Urine Ketones Urine Occult Blood Urine Nitrite Urine Bilirubin Urine Urobilinogen Ur Leukocyte Esterase Urine RBC Urine WBC Ur Squamous Epith Cells Urine Bacteria Urine Mucus 03/03/21 03/04/21 03/04/21 12:35 05:30 05:30 WBC 13.9 H RBC 3.96 L Hgb 11.9 L Hct 36.4 L MCV 91.9 MCH 30.1 MCHC 32.7 RDW Std Deviation 47.1 H RDW Coeff of Yun 13.7 Plt Count 203 MPV 10.2 Immature Gran % (Auto) 0.400 Neut % (Auto) 82.2 H Lymph % (Auto) 7.3 L [place] % (Auto) 9.3 Eos % (Auto) 0.5 Baso % (Auto) 0.3 Absolute Neuts (auto) 11.4 H Absolute Lymphs (auto) 1.02 Nucleated RBC % 0 Sodium 137 Potassium 3.6 Chloride 108 H Carbon Dioxide 22.0 Anion Gap 7 BUN 11 Creatinine 0.78 Estim Creat Clear Calc 56.87 Est GFR (MDRD) Af Amer 96 Est GFR (MDRD) Non-Af 79 BUN/Creatinine Ratio 14.2 Glucose 119 H Calcium 9.1 Magnesium Total Bilirubin 0.80 AST 34 ALT 29 Alkaline Phosphatase 91 Total Protein 6.3 L Albumin 2.4 L Globulin 3.9 Albumin/Globulin Ratio 0.6 L Triglycerides 56 Cholesterol 105 LDL Cholesterol 44 VLDL Cholesterol 11 HDL Cholesterol 50 Lipase TSH 0.60 Urine Color [place] Urine Clarity Cloudy Urine pH 5.0 Ur Specific [place] 1.025 Urine Protein 100 H Urine Glucose (UA) Normal Urine Ketones 5 H Urine Occult Blood 250 H Urine Nitrite Positive H Urine Bilirubin 1 H Urine Urobilinogen 1 H Ur Leukocyte Esterase 500 H Urine RBC > 100 SEEN Urine WBC 5-10 SEEN Ur Squamous Epith Cells 0 SEEN Urine Bacteria 0 SEEN Urine Mucus 2+ Micro: Microbiology 03/03/21 15:05 SARS-CoV-2 Antigen (Rapid) - Final Interface Orders Radiology Impression Abdomen/Pelvis CT 03/03/21 11:23 IMPRESSION: 7.5 mm calculus in the proximal portion of the right ureter causing right hydronephrosis and hydroureter as well as perinephric stranding. Nonobstructive calculus in the lower pole calyx of both the right and left kidneys. Small umbilical hernia containing fat. 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 N.B. : The above information has been verbally conveyed by Kalia Garnica MD to Geoffrey Ashraf on 03/03/2021 13:23:16 (ET). Electronically Signed: Kalia Garnica MD at 13:24 EDT , Service support , ADDENDUM: 03/03/21 1331
--- NOTE | 2021-03-04 07:46 | PCM.PN.HOSP ---
Subjective Subjective Patient admitted with generalized weakness fall and recent abdominal discomfort. Found to have proximal right ureteric stone 7.5 mm complicated with right hydroureter and hydronephrosis for which she had cystoscopy and right ureteral stent placement. Today, she is still feeling weak, mild shortness of breath on exertion. Denies back pain or burning micturition. Low grade fever, T-max 100.8 Fahrenheit Objective Data Objective Data Vital Signs: Vital Signs Temp Pulse Resp BP Pulse Ox 100.3 F H 67 16 108/56 L 99 03/04/21 05:52 03/04/21 05:52 03/04/21 05:52 03/04/21 05:52 03/04/21 05:52 Oxygen Delivery Method Room Air Weight: 211 lb Body Mass Index (BMI) 38.5 Intake & Output: Intake and Output for Last 24 Hours 03/02/21 03/03/21 03/04/21 23:59 23:59 23:59 Intake Total 1050 / 1210 360 / 360 Output Total 300 / 300 Balance 1050 / 1210 60 / 60 Lab / Micro Data Result Diagrams: 03/04/21 05:30 03/04/21 05:30 Labs: Laboratory Results - last 24 hr 03/03/21 03/03/21 03/03/21 11:00 11:00 11:00 WBC 15.5 H RBC 4.35 Hgb 13.0 Hct 39.2 MCV 90.1 MCH 29.9 MCHC 33.2 RDW Std Deviation 44.6 H RDW Coeff of Yun 13.5 Plt Count 281 MPV 10.7 Immature Gran % (Auto) 0.600 Neut % (Auto) 82.8 H Lymph % (Auto) 8.1 L [place] % (Auto) 5.4 Eos % (Auto) 2.8 Baso % (Auto) 0.3 Absolute Neuts (auto) 12.9 H Absolute Lymphs (auto) 1.26 Nucleated RBC % 0 Sodium 133 L Potassium 3.0 L Chloride 105 Carbon Dioxide 18.0 L Anion Gap 10 BUN 16 Creatinine 1.02 Estim Creat Clear Calc 43.49 Est GFR (MDRD) Af Amer 70 Est GFR (MDRD) Non-Af 58 L BUN/Creatinine Ratio 15.7 Glucose 156 H Calcium 9.7 Magnesium 1.6 Total Bilirubin 1.20 H AST 16 ALT 15 Alkaline Phosphatase 86 Total Protein 7.4 Albumin 3.0 L Globulin 4.4 H Albumin/Globulin Ratio 0.7 L Triglycerides Cholesterol LDL Cholesterol VLDL Cholesterol HDL Cholesterol Lipase 60 L TSH Urine Color Urine Clarity Urine pH Ur Specific [place] Urine Protein Urine Glucose (UA) Urine Ketones Urine Occult Blood Urine Nitrite Urine Bilirubin Urine Urobilinogen Ur Leukocyte Esterase Urine RBC Urine WBC Ur Squamous Epith Cells Urine Bacteria Urine Mucus 03/03/21 03/04/21 03/04/21 12:35 05:30 05:30 WBC 13.9 H RBC 3.96 L Hgb 11.9 L Hct 36.4 L MCV 91.9 MCH 30.1 MCHC 32.7 RDW Std Deviation 47.1 H RDW Coeff of Yun 13.7 Plt Count 203 MPV 10.2 Immature Gran % (Auto) 0.400 Neut % (Auto) 82.2 H Lymph % (Auto) 7.3 L [place] % (Auto) 9.3 Eos % (Auto) 0.5 Baso % (Auto) 0.3 Absolute Neuts (auto) 11.4 H Absolute Lymphs (auto) 1.02 Nucleated RBC % 0 Sodium 137 Potassium 3.6 Chloride 108 H Carbon Dioxide 22.0 Anion Gap 7 BUN 11 Creatinine 0.78 Estim Creat Clear Calc 56.87 Est GFR (MDRD) Af Amer 96 Est GFR (MDRD) Non-Af 79 BUN/Creatinine Ratio 14.2 Glucose 119 H Calcium 9.1 Magnesium Total Bilirubin 0.80 AST 34 ALT 29 Alkaline Phosphatase 91 Total Protein 6.3 L Albumin 2.4 L Globulin 3.9 Albumin/Globulin Ratio 0.6 L Triglycerides 56 Cholesterol 105 LDL Cholesterol 44 VLDL Cholesterol 11 HDL Cholesterol 50 Lipase TSH 0.60 Urine Color [place] Urine Clarity Cloudy Urine pH 5.0 Ur Specific [place] 1.025 Urine Protein 100 H Urine Glucose (UA) Normal Urine Ketones 5 H Urine Occult Blood 250 H Urine Nitrite Positive H Urine Bilirubin 1 H Urine Urobilinogen 1 H Ur Leukocyte Esterase 500 H Urine RBC > 100 SEEN Urine WBC 5-10 SEEN Ur Squamous Epith Cells 0 SEEN Urine Bacteria 0 SEEN Urine Mucus 2+ Micro: Microbiology 03/03/21 15:05 Interface Orders SARS-CoV-2 Antigen (Rapid) - Final Radiography Diagnostic Testing: Radiology Impression Abdomen/Pelvis CT 03/03/21 11:23 IMPRESSION: 7.5 mm calculus in the proximal portion of the right ureter causing right hydronephrosis and hydroureter as well as perinephric stranding. Nonobstructive calculus in the lower pole calyx of both the right and left kidneys. Small umbilical hernia containing fat. 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 N.B. : The above information has been verbally conveyed by Kalia Garnica MD to Geoffrey Ashraf on 03/03/2021 13:23:16 (ET). 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 N.B. : The above information has been verbally conveyed by Kalia Garnica MD to Geoffrey Ashraf on 03/03/2021 13:23:16 (ET). Electronically Signed: Kalia Garnica MD at 13:24 EDT , Service support , Physical Exam Narrative General: Oriented x3, Cooperative. Mild lethargy and weak HEENT: Atraumatic, PERRLA, EOMI, Normocephalic Oral: No Gingival or Mucosal Lesions/ Ulcerations Neck: Supple, No JVD, Negative Carotid Bruits Lungs: Air entry diminished in bilateral lung bases. No crepitation/rhonchi Cardiovascular: Regular rate, Regular Rhythm, Normal S1, Normal S2, No murmurs Abdomen: Bowel Sounds Present, Soft, Non Tender, Non-Distended : No renal angle tenderness. No suprapubic tenderness. Extremities: Mild bilateral ankle edema, Capillary Refill Less than 3 Seconds Skin: No rashes, No breakdown Musculoskeletal: No Tenderness to Palpation of Joints or Extremities Neurological: Cranial nerves II-XII grossly intact, Deep Tendon Reflexes 2+/4 and Symmetrical, Neuro grossly intact Psych/Mental Status: Flat affect. Assessment & Plan Assessment/Plan (1) Acute UTI: (2) Kidney stone on right side: (3) Fall: (4) Generalized weakness: PLAN: The patient is a 65 y/o F with history of PE on Eliquis and other comorbidities was admitted for generalized weakness, not feeling well, nausea and fall in bathtub but no major head injury or neck pain. Recently had abdominal discomfort which is resolved. Patient was found to have right proximal third ureteric stone 7.5 mm with right hydroureter and hydronephrosis with nonobstructive calculus in lower pole calyces of right and left kidneys with perinephric stranding on CT scan, leukocytosis, UA positive of nitrite and LE although she denied dysuria or burning micturition. 1. Acute Obstructive Right Sided Ureteral Obstructive Calculus with Hydronephrosis/hydroureter with complicated upper UTI: Patient is admitted on [facility]. Patient seen by urologist and had cystoscopy right retrograde pyelogram with right ureteral stent placement. 03/04: Urine culture preliminary shows [id number] staph species. Blood culture is ordered. On IV ceftriaxone 2 g. Leukocytosis is improving. Vancomycin ordered after discussion with ID as she had complicated UTI with obstructive stone with hydroureteronephrosis 2. Lightheadedness, dizziness with falls: CT of the head with no acute intracranial finding, incidental stroke as noted below, likely secondary to infection. 3. Hypokalemia: Repeat potassium 3.6. Magnesium 1.6. Magnesium 2 g IV given. Mild hypomagnesemia. 4. Hyperglycemia: Admission glucose 156, no history of diabetes but especially given incidental findings on CT head. A1c 5.1. Diabetes and prediabetes ruled out. 5. Incidentally noted old lacunar infarct: CT of the head obtained secondary to recent fall with noted old lacunar infarct in the left insular cortex. Patient on Eliquis. LDL 44, HDL 50. TSH normal. Blood pressure is controlled. Echo EF 65% with bubble contrast read negative for PFO/ASD. Mild TR. Normal RV size. 6. History of recurrent DVT/PE: On 5 mg Eliquis twice daily 7. Obesity: Weight loss and lifestyle changes encouraged. 8. Anxiety and depression: We will continue patient home duloxetine and wellbutrin regimen. 9. Hypertension: Continue home regimen including lisinopril, hydrochlorothiazide with hold parameters, PRN hydralazine. 10. Trigeminal neuralgia, history of: We will continue patient home topiramate regimen. 11. DVT prophylaxis: SCDs, continue patient home Eliquis next dose in a.m. given operative intervention currently. 12. CODE status: Full code. Charges/Coding Visit Charges Inpatient E&M: 00944 Subs Hosp L2
[2021-03-04 08:42] LABS: Hemoglobin A1c 5.1 % (3.8-5.6)
[2021-03-04] MEDS: hydroCHLOROthiazide 12.5mg 12.5 MG PO (09:52)
[2021-03-04] MEDS: Lisinopril 10 MG Tablet PO (09:52)
[2021-03-04] MEDS: Famotidine 20 MG Tablet PO (09:52)
[2021-03-04] MEDS: Topiramate 100 MG Tablet PO (09:52)
[2021-03-04] MEDS: Potassium Chloride Oral Tablet 20 MEQ 40 MEQ PO (09:56)
[2021-03-04] MEDS: DULoxetine Hcl 60 MG Capsule PO (09:56)
--- NOTE | 2021-03-04 10:55 | CASEMGMT ---
RN CM Face to Face with patient for initial transition planning/care coordination assessment. RN CM introduced self and role at [facility]. Patient lying in bed, alert and oriented. Patient willing to participate in assessment and is able to answer all questions appropriately. Care providers, pharmacy, and demographics verified. Patient wishes to discharge home, denies need for home health at this time. Patient states she has no further needs or concerns at this time. CM to follow for discharge planning needs that may arise. PCP: Ross Specialists: none Preferred Pharmacy: [facility] Insurance: [facility] Prescription Benefit: yes Living Will/HPOA: none LNOK: daughter Living Arrangements: Patient lives alone in an apartment on the first floor. 4 steps and railing to enter the home. Patient is independent at home. Transportation: self/children DME/HHC: Patient states she has raised toilets and grab bars at home. Patient denies previous HHC or SNF. Disposition Plan: Talya JEFFERSON, RN, CM
[2021-03-04] MEDS: Acetaminophen 325 MG Tablet 650 MG PO ×2 (11:23→19:51)
--- NOTE | 2021-03-04 16:38 | PCM.RX.CS ---
Consult Pharmacy has been consulted to manage selected antiobiotic: Vancomycin Type of Consult: New start Suspected Infection: Other Labs: Sodium 137 mmol/L (136-145) 03/04/21 05:30 Potassium 3.6 mmol/L (3.5-5.1) 03/04/21 05:30 Chloride 108 mmol/L (98-107) H 03/04/21 05:30 Carbon Dioxide 22.0 mmol/L (21.0-32.0) 03/04/21 05:30 Anion Gap 7 (5-15) 03/04/21 05:30 BUN 11 mg/dL (7-18) 03/04/21 05:30 Creatinine 0.78 mg/dL (0.55-1.02) 03/04/21 05:30 Est GFR (MDRD) Af Amer 96 mL/min (>60) 03/04/21 05:30 Est GFR (MDRD) Non-Af 79 mL/min (>60) 03/04/21 05:30 BUN/Creatinine Ratio 14.2 RATIO (10-20) 03/04/21 05:30 Glucose 119 mg/dL (74-106) H 03/04/21 05:30 Microbiology: Microbiology 03/03/21 Unknown Urine, Clean Catch Urine Culture - Preliminary Staphylococcus species 03/03/21 15:05 Interface Orders SARS-CoV-2 Antigen (Rapid) - Final Goal Trough: 15-20 mcg/mL Pharmacy Plan for Drug Dosing: NEW START IV VANCOMYCIN Consulting Physician: Dr. Ayala Indication: Complicate UTI Goal Trough: 15-20 SrCr: 0.78 CrCl: 57 mL/min Comments: Initial dose 1500mg IV x1 administered 03/04/21 @1556 Vancomcyin Dose: 1000mg IV Q12hr to start 03/05/21 @0400 Pending Level: 03/06/21 @0330, prior to 4th total dose per protocol. Micro: UCx showing staph, no sensitivities at this time. Pharmacy Service will continue to monitor and adjust dosing as required.
[2021-03-04] MEDS: oxyCODONE 5 MG Tablet PO (19:51)
[2021-03-04 21:29] LABS: M R Staph aureus DNA By PCR Negative (Negative); Probe Check PASS; Specimen Processing Control PASS
[2021-03-04] MEDS: 0.9% Saline Lock 10 ML Syringe IV (21:50)
[2021-03-05 02:34] VITALS: BP 123/62; PULSE 64; RESP 16; TEMP 36.6; O2SAT 100
[2021-03-05] MEDS: Morphine 2 MG/ML Syringe IV (02:46)
[2021-03-05] MEDS: 0.9% Normal Saline 1,000 ML 125 ML IV ×3 (03:57→22:31)
[2021-03-05] MEDS: Vancomycin IV 1,000 MG/200 ML BAG 200 MG IV ×2 (03:57→16:16)
[2021-03-05 06:25] LABS: Absolute Lymphocyte Count 1.62 X10^3/uL (0.83-4.51); Absolute Neutrophil Count 5.5 X10^3/uL (2.0-7.7); Basophil# 0.06 X10^3/uL; Basophil% 0.7 % (0-1); Eosinophils% 2.5 % (0-5); Hematocrit 32.2 % (37-47); Hemoglobin 10.5 g/dL (12.0-15.0); Lymphocyte # 1.62 X10^3/ul (0.83-4.51); Lymphocyte % 20.1 % (19-41); Mean Corp Hgb Conc 32.6 g/dL (32-36); Mean Corpuscular Hgb 29.7 pg (27.0-32.0); Mean Corpuscular Volume 91.2 fL (81-99); Mean Platelet Vol. 10.4 fl (6.2-12.0); Monocyte# 0.66 X10^3/uL; Monocyte% 8.2 % (0-10); NRBC Flagged by Analyzer 0 % (0-5); Neutrophil # 5.49 X10^3/uL (2.7-7.7); Neutrophil % 68.3 % (47-70); Platelet Count 193 K/mm3 (150-450); RBC Distribution Width CV 13.9 % (11.6-14.6); RBC Distribution Width SD 46.8 fl (35.1-43.9); Red Blood Count 3.53 M/mm3 (4.2-5.4); White Blood Count 8.1 K/mm3 (4.4-11.0)
[2021-03-05 06:38] LABS: Anion Gap 6 (5-15); BUN 8 mg/dL (7-18); BUN/Creat Ratio 11.8 RATIO (10-20); Calcium,Total 8.7 mg/dL (8.5-10.1); Chloride 112 mmol/L (98-107); Creatinine, Serum 0.68 mg/dL (0.55-1.02); EST Glomerular Filtration Rate 92 mL/min (>60); Est Glom Filt Rate - Afr Amer 112 mL/min (>60); Estimated Creatinine Clearance 65.23 ml/min; Glucose 151 mg/dL (74-106); Potassium 3.2 mmol/L (3.5-5.1); Sodium Level 140 mmol/L (136-145)
[2021-03-05 07:16] VITALS: O2SAT 97
--- NOTE | 2021-03-05 07:44 | PN.URO_ITS ---
Subjective Subjective pt stable s/p placement of stent. Objective Data Objective Data Vital Signs: Vital Signs Temp Pulse Resp BP Pulse Ox 97.9 F 64 16 123/62 H 100 03/05/21 02:34 03/05/21 02:34 03/05/21 02:34 03/05/21 02:34 03/05/21 02:34 Oxygen Delivery Method Room Air Weight: 95.708 kg Body Mass Index (BMI) 38.5 Intake & Output: Intake and Output for Last 24 Hours 03/03/21 03/04/21 03/05/21 23:59 23:59 23:59 Intake Total 1050 / 1210 3528.58 / 3528.58 1387.50 / 1387.50 Output Total 1200 / 1200 900 / 900 Balance 1050 / 1210 2328.58 / 2328.58 487.50 / 487.50 Lab / Micro Data Result Diagrams: 03/05/21 06:11 03/05/21 06:11 Labs: Laboratory Results - last 24 hr 03/04/21 03/04/21 03/05/21 05:30 17:45 06:11 WBC 8.1 RBC 3.53 L Hgb 10.5 L Hct 32.2 L MCV 91.2 MCH 29.7 MCHC 32.6 RDW Std Deviation 46.8 H RDW Coeff of Yun 13.9 Plt Count 193 MPV 10.4 Immature Gran % (Auto) 0.200 Neut % (Auto) 68.3 Lymph % (Auto) 20.1 [place] % (Auto) 8.2 Eos % (Auto) 2.5 Baso % (Auto) 0.7 Absolute Neuts (auto) 5.5 Absolute Lymphs (auto) 1.62 Nucleated RBC % 0 Sodium Potassium Chloride Carbon Dioxide Anion Gap BUN Creatinine Estim Creat Clear Calc Est GFR (MDRD) Af Amer Est GFR (MDRD) Non-Af BUN/Creatinine Ratio Glucose Hemoglobin A1c 5.1 Calcium Magnesium MRSA (PCR) Negative 03/05/21 06:11 WBC RBC Hgb Hct MCV MCH MCHC RDW Std Deviation RDW Coeff of Yun Plt Count MPV Immature Gran % (Auto) Neut % (Auto) Lymph % (Auto) [place] % (Auto) Eos % (Auto) Baso % (Auto) Absolute Neuts (auto) Absolute Lymphs (auto) Nucleated RBC % Sodium 140 Potassium 3.2 L Chloride 112 H Carbon Dioxide 22.0 Anion Gap 6 BUN 8 Creatinine 0.68 Estim Creat Clear Calc 65.23 Est GFR (MDRD) Af Amer 112 Est GFR (MDRD) Non-Af 92 BUN/Creatinine Ratio 11.8 Glucose 151 H Hemoglobin A1c Calcium 8.7 Magnesium 2.0 MRSA (PCR) Micro: Microbiology 03/03/21 Unknown Urine, Clean Catch Urine Culture - Preliminary Staphylococcus species 03/03/21 15:05 Interface Orders SARS-CoV-2 Antigen (Rapid) - Final Radiography Diagnostic Testing: Radiology Impression Echocardiogram 03/03/21 16:53 Interpretation Summary The estimated ejection fraction is 65 %. Normal diastology for age. _ Ordering Physician: Angelita Garcia Referring Physician: Joe Carmichael M.D. Performed By: Joann Sandhu RDCS Physical Exam Const alert and oriented x3 General Appearance: cooperative HEENT normocephalic and head/scalp atraumatic Eyes PERRL and EOMs intact bilaterally Neck supple, no JVD and no carotid bruits Resp normal respiratory effort, normal air movement and clear to auscultation bilaterally Cardio regular rate and no murmurs GI normal to inspection, nondistended, normoactive bowel sounds and soft to palpation Extremity normal capillary refill General Extremity: no tenderness to palpation of joints or extremities; Negative for edema Skin no rashes or lesions noted and no wounds General Skin Exam: no breakdown Neuro CN's II-XII intact bilaterally Psych affect normal Appearance: appropriate Assessment & Plan Assessment/Plan (1) Kidney stone on right side: PLAN: s/p stent placement, needs to follow up with Dr Boogie ,urology to plan lithotripsy of stone will need to hold blood thinners for procedure, my office will contact patient.
[2021-03-05 09:25] VITALS: BP 107/62; PULSE 59; RESP 18; TEMP 37.2; O2SAT 96
[2021-03-05] MEDS: Potassium Chloride Oral Tablet 20 MEQ 40 MEQ PO ×2 (09:29→16:17)
[2021-03-05] MEDS: hydroCHLOROthiazide 12.5mg 12.5 MG PO (09:29)
[2021-03-05] MEDS: DULoxetine Hcl 60 MG Capsule PO (09:29)
[2021-03-05] MEDS: Famotidine 20 MG Tablet PO ×2 (09:29→22:31)
[2021-03-05] MEDS: APIXABAN 5 MG TABLET PO ×2 (09:30→22:31)
[2021-03-05] MEDS: Topiramate 100 MG Tablet PO (09:30)
--- NOTE | 2021-03-05 10:27 | CASEMGMT ---
Addendum entered by Kendy Farrell 03/05/21 15:14: Script for OP therapy @ [facility] faxed to [facility] at this time and call placed to them to have insurance benefits processed per pt's request. Pt made aware script has been faxed and they are checking her insurance benefits. Pt given original script for therapy and will f/u with [facility] after discharge if [id number] cost is affordable. Pt has [employer] contact #. Original Note: ESTUARDO OSEGUERA NOTE: OT has evaluated pt and state they will provide pt w/Home exercise instructions. ESTUARDO OSEGUERA to room to discuss discharge planning. Pt is interested in OP therapy @ [facility], depending upon [id number] cost once it has processed thru insurance. Pt made aware she can be provided w/Script for therapy @ discharge and also that OT will provide her w/home exercise instructions she can do if OP therapy is not affordable. She voices understanding and appreciation. She denies need for HHC and denies other discharge planning/needs. Alicia JEFFERSON RN, CM
--- NOTE | 2021-03-05 11:23 | PN.HOSP_ITS ---
Subjective Subjective Patient does not have abdominal pain. Complain of mild discomfort/tenderness over left side of head, temporal region but could not describe it well. She states is not like pain. Has pinkish/bloody urine. No catheter. Sometimes feels right lateral abdominal spasm. Objective Data Objective Data Vital Signs: Vital Signs Temp Pulse Resp BP Pulse Ox 98.9 F 59 L 18 107/62 96 03/05/21 09:25 03/05/21 09:25 03/05/21 09:25 03/05/21 09:25 03/05/21 09:25 Oxygen Delivery Method Room Air Weight: 211 lb Body Mass Index (BMI) 38.5 Intake & Output: Intake and Output for Last 24 Hours 03/03/21 03/04/21 03/05/21 23:59 23:59 23:59 Intake Total 1050 / 1210 3528.58 / 3528.58 / 1990. Output Total 1200 / 1200 900 / 900 Balance 1050 / 1210 2328.58 / 2328.58 1091.67 / 1091.67 Lab / Micro Data Result Diagrams: 03/05/21 06:11 03/05/21 06:11 Labs: Laboratory Results - last 24 hr 03/04/21 03/05/21 03/05/21 17:45 06:11 06:11 WBC 8.1 RBC 3.53 L Hgb 10.5 L Hct 32.2 L MCV 91.2 MCH 29.7 MCHC 32.6 RDW Std Deviation 46.8 H RDW Coeff of Yun 13.9 Plt Count 193 MPV 10.4 Immature Gran % (Auto) 0.200 Neut % (Auto) 68.3 Lymph % (Auto) 20.1 [place] % (Auto) 8.2 Eos % (Auto) 2.5 Baso % (Auto) 0.7 Absolute Neuts (auto) 5.5 Absolute Lymphs (auto) 1.62 Nucleated RBC % 0 Sodium 140 Potassium 3.2 L Chloride 112 H Carbon Dioxide 22.0 Anion Gap 6 BUN 8 Creatinine 0.68 Estim Creat Clear Calc 65.23 Est GFR (MDRD) Af Amer 112 Est GFR (MDRD) Non-Af 92 BUN/Creatinine Ratio 11.8 Glucose 151 H Calcium 8.7 Magnesium 2.0 MRSA (PCR) Negative Micro: Microbiology 03/03/21 Unknown Urine, Clean Catch Urine Culture - Final Staphylococcus epidermidis 03/03/21 15:05 Interface Orders SARS-CoV-2 Antigen (Rapid) - Final Physical Exam Narrative General: Oriented x3, Cooperative. Mild lethargy and weak HEENT: Atraumatic, PERRLA, EOMI, Normocephalic Oral: No Gingival or Mucosal Lesions/ Ulcerations Neck: Supple, No JVD, Negative Carotid Bruits Lungs: Air entry diminished in bilateral lung bases. No crepitation/rhonchi Cardiovascular: Regular rate, Regular Rhythm, Normal S1, Normal S2, No murmurs Abdomen: Bowel Sounds Present, Soft, Non Tender, Non-Distended : No renal angle tenderness. No suprapubic tenderness. Extremities: Mild bilateral ankle edema, Capillary Refill Less than 3 Seconds Skin: No rashes, No breakdown Musculoskeletal: No Tenderness to Palpation of Joints or Extremities Neurological: Cranial nerves II-XII grossly intact, Deep Tendon Reflexes 2+/4 and Symmetrical, Neuro grossly intact Psych/Mental Status: Flat affect. Assessment & Plan Assessment/Plan (1) Acute UTI: (2) Kidney stone on right side: (3) Fall: (4) Generalized weakness: PLAN: The patient is a 65 y/o F with history of PE on Eliquis and other comorbidities was admitted for generalized weakness, not feeling well, nausea and fall in bathtub but no major head injury or neck pain. Recently had ab dominal discomfort which is resolved. Patient was found to have right proximal third ureteric stone 7.5 mm with right hydroureter and hydronephrosis with nonobstructive calculus in lower pole calyces of right and left kidneys with perinephric stranding on CT scan, leukocytosis, UA positive of nitrite and LE although she denied dysuria or burning micturition. 1. Acute Obstructive Right Sided Ureteral Obstructive Calculus with Hydronephrosis/hydroureter with complicated upper UTI: Patient is admitted on [facility]. Patient seen by urologist and had cystoscopy right retrograde pyelogram with right ureteral stent placement. 03/04: Urine culture preliminary shows [id number] staph species. Blood culture is ordered. On IV ceftriaxone 2 g. Leukocytosis is improving. Vancomycin ordered after discussion with ID as she had complicated UTI with obstructive stone with hydroureteronephrosis 03/05: Urine culture shows MRSE [id number], blood cultures x2 are pending. 2. Lightheadedness, dizziness with falls: CT of the head with no acute intracranial finding, incidental stroke as noted below, likely secondary to infection. 2D echo EF 65% with normal diastolic for age. 3. Hypokalemia: Repeat potassium 3.6. Magnesium 1.6. Magnesium 2 g IV given. Mild hypomagnesemia. /: Mild hypokalemia, potassium 3.2. Magnesium 2.0. Check phosphorus p.o. potassium replaced 4. Hyperglycemia: Admission glucose 156, no history of diabetes but especially given incidental findings on CT head. A1c 5.1. Diabetes and prediabetes ruled out. 5. Incidentally noted old lacunar infarct: CT of the head obtained secondary to recent fall with noted old lacunar infarct in the left insular cortex. Patient on Eliquis. LDL 44, HDL 50. TSH normal. Blood pressure is controlled. Echo EF 65% with bubble contrast read negative for PFO/ASD. Mild TR. Normal RV size. 6. History of recurrent DVT/PE: On 5 mg Eliquis twice daily 7. Obesity: Weight loss and lifestyle changes encouraged. 8. Anxiety and depression: We will continue patient home duloxetine and wellbutrin regimen. 9. Hypertension: Continue home regimen including lisinopril, hydrochlorothiazide with hold parameters, PRN hydralazine. 10. Trigeminal neuralgia: Patient home topiramate regimen. 11. DVT prophylaxis: SCDs, continue patient home Eliquis next dose in a.m. given operative intervention currently. 12. CODE status: Full code. Charges/Coding Visit Charges Inpatient E&M: 65026 Subs Hosp L2
[2021-03-05 12:47] LABS: Anion Gap 5 (5-15); BUN 8 mg/dL (7-18); BUN/Creat Ratio 11.6 RATIO (10-20); Calcium,Total 8.9 mg/dL (8.5-10.1); Chloride 111 mmol/L (98-107); Creatinine, Serum 0.69 mg/dL (0.55-1.02); EST Glomerular Filtration Rate 91 mL/min (>60); Est Glom Filt Rate - Afr Amer 110 mL/min (>60); Estimated Creatinine Clearance 64.29 ml/min; Glucose 109 mg/dL (74-106); Phosphorus 1.7 mg/dL (2.5-4.9); Potassium 3.5 mmol/L (3.5-5.1); Sodium Level 138 mmol/L (136-145)
[2021-03-05] MEDS: oxyCODONE 5 MG Tablet PO ×2 (14:38→22:30)
[2021-03-05] MEDS: Acetaminophen 325 MG Tablet 650 MG PO ×2 (14:38→22:29)
--- NOTE | 2021-03-05 14:38 | PHA.DC.COU ---
This [facility] was asked to speak to patient regarding her home Wellbutrin XL. Nurse reports that patient experienced a side effect of heart beating fast on the Wellbutrin XL 150mg daily dose so the patient decided to cut the tablet in half without consulting her physician. This [facility] went to patient room to explain that cutting an extended release tablet in half can be dangerous because of the unpredictable release of the medication which can cause side effects. This [facility] discouraged patient from cutting her XL tablets in half and advised patient to contact the physician whom prescribes Wellbutrin XL to make them aware of the side effect she experiences on the higher dose so perhaps she can be switched to an appropriate dose and formulation. Patient verbalized understanding. All questions answered.
[2021-03-05] MEDS: buPROPion 75 MG Tablet 37.5 MG PO ×2 (14:40→22:52)
[2021-03-05] MEDS: 0.9% Saline Lock 10 ML Syringe IV (14:43)
[2021-03-05 14:50] VITALS: BP 122/69; PULSE 57; RESP 18; TEMP 36.6; O2SAT 100
--- NOTE | 2021-03-05 15:34 | CASEMGMT ---
Social Work RN making referral for mental health as pt has been crying in room. SW met with pt in room and introduced self and role of SW. Pt is alert and oriented x3 and willing to talk to SW openly. Pt does have a history of depression and is on medication for this. Pt states she has cut medication in half and has talked with hospital staff about this and learned this is not a safe procedure. SW encouraged pt to talk to PCP about changing medications if she does not like the current anti depressant. Pt has seen a counselor several years ago when living in [place]. SW provided pt with list of area counseling services. Pt denied need for SW to setup an appointment but did accept the written information. Pt denies thoughts of suicide. Pt dgt is supportive and pt talks to her often. SW encouraged verbalization of feelings and provided emotional support. Pt denies any further needs at this time. SW will remain available should further needs arise. STEPHEN Guan
[2021-03-05 20:37] VITALS: BP 115/65; PULSE 78; RESP 18; TEMP 36.6; O2SAT 99
[2021-03-06 02:23] VITALS: BP 112/59; PULSE 64; RESP 18; TEMP 36.4; O2SAT 100
[2021-03-06] MEDS: Vancomycin IV 1,000 MG/200 ML BAG 200 MG IV (03:41)
[2021-03-06 03:45] LABS: Absolute Lymphocyte Count 1.86 X10^3/uL (0.83-4.51); Absolute Neutrophil Count 4.1 X10^3/uL (2.0-7.7); Basophil# 0.06 X10^3/uL; Basophil% 0.9 % (0-1); Eosinophil# 0.25 X10^3/uL; Eosinophils% 3.7 % (0-5); Hemoglobin 10.3 g/dL (12.0-15.0); Lymphocyte # 1.86 X10^3/ul (0.83-4.51); Lymphocyte % 27.4 % (19-41); Mean Corp Hgb Conc 32.2 g/dL (32-36); Mean Corpuscular Hgb 29.9 pg (27.0-32.0); Mean Platelet Vol. 10.5 fl (6.2-12.0); Monocyte# 0.51 X10^3/uL; Monocyte% 7.5 % (0-10); NRBC Flagged by Analyzer 0 % (0-5); Neutrophil % 60.2 % (47-70); Platelet Count 224 K/mm3 (150-450); RBC Distribution Width CV 13.8 % (11.6-14.6); RBC Distribution Width SD 47.1 fl (35.1-43.9); Red Blood Count 3.44 M/mm3 (4.2-5.4); White Blood Count 6.8 K/mm3 (4.4-11.0)
[2021-03-06 03:59] LABS: Anion Gap 5 (5-15); BUN 7 mg/dL (7-18); Calcium,Total 8.8 mg/dL (8.5-10.1); Chloride 115 mmol/L (98-107); Creatinine, Serum 0.58 mg/dL (0.55-1.02); EST Glomerular Filtration Rate 110 mL/min (>60); Est Glom Filt Rate - Afr Amer 133 mL/min (>60); Estimated Creatinine Clearance 76.48 ml/min; Glucose 138 mg/dL (74-106); Potassium 3.5 mmol/L (3.5-5.1); Sodium Level 142 mmol/L (136-145)
[2021-03-06 04:27] LABS: Vancomycin, Trough Level 12.7 ug/mL (5.0-15.0)
--- NOTE | 2021-03-06 04:35 | PCM.RX.CS ---
Consult Pharmacy has been consulted to manage selected antiobiotic: Vancomycin Type of Consult: Follow-up Labs: Sodium 142 mmol/L (136-145) 03/06/21 03:35 Potassium 3.5 mmol/L (3.5-5.1) 03/06/21 03:35 Chloride 115 mmol/L (98-107) H 03/06/21 03:35 Carbon Dioxide 22.0 mmol/L (21.0-32.0) 03/06/21 03:35 Anion Gap 5 (5-15) 03/06/21 03:35 BUN 7 mg/dL (7-18) 03/06/21 03:35 Creatinine 0.58 mg/dL (0.55-1.02) 03/06/21 03:35 Est GFR (MDRD) Af Amer 133 mL/min (>60) 03/06/21 03:35 Est GFR (MDRD) Non-Af 110 mL/min (>60) 03/06/21 03:35 BUN/Creatinine Ratio 12.0 RATIO (10-20) 03/06/21 03:35 Glucose 138 mg/dL (74-106) H 03/06/21 03:35 Vancomycin Trough 12.7 ug/mL (5.0-15.0) 03/06/21 03:35 Microbiology: Microbiology 03/03/21 Unknown Urine, Clean Catch Urine Culture - Final Staphylococcus epidermidis 03/03/21 15:05 Interface Orders SARS-CoV-2 Antigen (Rapid) - Final Goal Trough: 10-15 mcg/mL Pharmacy Plan for Drug Dosing: Pharmacy Service will continue to monitor and adjust dosing as required. TROUGH 12.7 INCREASE TO 1250MG Q12H AND DRAW FOLLOW UP TROUGH WITH 4 DOSE Follow-Up Labs: Trough Vancomycin Labs to be done on [date and time ordered]: 03/08 @ 8132
[2021-03-06] MEDS: 0.9% Normal Saline 1,000 ML 125 ML IV (06:31)
--- NOTE | 2021-03-06 07:09 | PCM.DC ---
Discharge Instructions Diet Discharge Diet: Low fat / Low cholesterol Activity Discharge Activity: - (Restrictions per Urology discretion.) May resume sexual activity in: - (Restrictions per Urology discretion.) Dressing / Incision Call your doctor if you observe: Fever of 101 or Higher and Inability to urinate Follow Up Care Test Results: Test results from this visit will be discussed in further detail at your follow-up appointment, if applicable. Discharge Plan Admission Admit Date/Time: 03/03/21 15:38 Primary Reason for Your Visit: R Obstructive Ureteral Calculus w/ UTI, Incidental prior CVA on CT Attending Provider: Angelita Garcia Primary Care Provider: Joe Carmichael Consulting Providers: Antoine Boogie Instructions Patient Instructions: What Is Ischemic Stroke?, Ureteral Stents, Understanding Kidney Stones, Treating Kidney Stones: Percutaneous Lithotripsy, Preventing Kidney Stones, ED Bladder Infection, Female (Adult) Discharge Orders/Prescriptions Prescriptions: New potassium chloride [Klor-Con M20] 20 mEq Tablet,Er Particles/Crystals 40 meq PO BIDCM 30 Days Qty: 60 RF: 0 oxycodone 5 mg Tablet 5 mg PO Q4H PRN PRN (Reason: Pain Score 4-5) 5 Days Qty: 30 RF: 0 Eliquis 5 mg Tablet 5 mg PO BID 30 Days Qty: 60 RF: 0 sulfamethoxazole-trimethoprim [Bactrim DS] 800-160 mg tablet 1 tab PO BID 7 Days Qty: 14 RF: 0 Continued lisinopril-hydrochlorothiazide 10-12.5 mg tablet 1 tab PO DAILY RF: 0 topiramate 100 mg tablet 100 mg PO DAILY RF: 0 bupropion HCl [Wellbutrin XL] 150 mg tablet extended release 24 hr 75 mg PO DAILY RF: 0 duloxetine 30 mg capsule,delayed release(DR/EC) 60 mg PO DAILY RF: 0 Discontinued Eliquis 5 mg tablet 5 mg PO DAILY RF: 0 Referrals / Follow Up: Antoine Boogie MD [STAFF PHYSICIAN] - (Follow-up in 1 week or per Urology discretion.) Joe Carmichael MD [Primary Care Provider] - (Follow-up within 3-5 days to review admission and also have repeat CBC, BMP as well as reassessment Phos and Mag given low levels during admission with repletion needed.) Disposition Disposition (needs filled in before D/C Order can be placed): Home, self care
--- NOTE | 2021-03-06 07:25 | PCM.DC.SUM ---
Providers Date of Admission: 03/03/21 Primary Care Physician: Dr. Joe Carmichael MD Consultations 03/03/21 16:53 Consult: Urology Routine Consulting Provider: Antoine Boogie Reason for Consult: Obstructive calculus, hydroureter/hydronephrosis, UTI EMERGENT Consult: No MD Notified: Yes Date Notified:: 03/03/21 Time Notified: 15:34 Method of Notification: called per ED. Reason For Visit: CYSTO RT STENT Diagnosis Discharge Diagnosis (1) Acute UTI: Status: Acute Code(s): N39.0 - Urinary tract infection, site not specified (2) Kidney stone on right side: Status: Acute Code(s): N20.0 - Calculus of kidney (3) Fall: Status: Acute Code(s): W19.XXXA - Unspecified fall, initial encounter (4) Generalized weakness: Status: Acute Code(s): R53.1 - Weakness Medications at Discharge Home Medications bupropion HCl [Wellbutrin XL] 75 mg PO DAILY 03/03/21 duloxetine 60 mg PO DAILY 03/03/21 lisinopril-hydrochlorothiazide 1 tab PO DAILY 03/03/21 topiramate 100 mg PO DAILY 03/03/21 apixaban [Eliquis] 5 mg PO BID 30 Days #60 tab 03/06/21 atorvastatin 40 mg PO QHS 30 Days #30 tab 03/06/21 oxycodone 5 mg PO Q4H PRN PRN 5 Days #30 tab 03/06/21 potassium chloride [Klor-Con M20] 40 meq PO BIDCM 30 Days #60 tab 03/06/21 sulfamethoxazole-trimethoprim [Bactrim DS] 1 tab PO BID 7 Days #14 tab 03/06/21 Hospital Course Summary of Care Provided Minutes Spent on Discharge: 35 Hospital Course: Discharge Diagnoses: 1. Acute Flank Pain, Fevers, Malaise secondary to Acute Obstructive Right Sided Ureteral Obstructive Calculus with Hydronephrosis/hydroureter, Acute Staph Aureus UTI 2. Lightheadedness, dizziness with falls secondary to acute presentation #1 3. Hypokalemia 4. Hyperglycemia, likely secondary to stress response, HgBA1c 5.1% 5. Incidentally noted old lacunar infarct (ECHO performed, HgBA1c normal, maintained on eliquis correct dosing, HTN regimen, moderate statin dose added) 6. History of recurrent DVT/PE (Had been incorrectly taking eliquis only once daily, education given and rx altered) 7. Obesity 8. Anxiety and depression 9. Hypertension 10. Trigeminal neuralgia, history of Discharge Summary: The patient is a 65 y/o F w/ PMHx: History of PE/DVTs on eliquis, HTN, Anxiety and Depression, Obesity who presented to the [facility] ED on 03/03/21 with history of recent episode of right-sided flank discomfort, rated when it occurred 7-8 out of 10 in severity, sharp, which was transient and she noted improved following usage of a K pad and rest however she then started to have onset significant fatigue, malaise, nausea without emesis in addition to significantly elevated fevers, chills and onset falls with lightheadedness and dizziness prompting eventual ED presentation for evaluation. Patient taken to the OR per Urology with stent placed, transitioned to MS following, initially maintained on rocephin IV, transitioned to bactrim at discharge given UCx w/ staph aureus sensitive to bactrim per recommendation of Dr. Abrams w/ recommended duration 10 days of treatment total. Patient with incidental evidence prior stroke on CT head upon ED evaluation. During admission ECHO performed, transitioned to appropriate eliquis dosing, continued HTN regimen, moderate dose statin added and HgbA1c obtained. Patient clinically improved and discharged to home in stable, improved condition with PCP follow-up within 3-5 days and follow-up with Urology in 1 week for stent removal and consideration further stone intervention. Patient discharged w/ completion regimen of her abx therapy bactrim DS per ID recommendation. Discharge Time: > 35 Minutes DAY OF DISCHARGE PROGRESS NOTE: Subjective: Patient without acute event overnight per self and nursing report. Patient denies fever, chills, nausea, emesis, abdominal pain, chest pain or dyspnea. Patient flank discomfort and abdominal discomfort notably improved. Patient agreeable to discharge to home. Patient will be discharged with follow-up with primary care physician within 3-5 days in addition to follow-up with Urology in 1 week. Objective: T 97.8, heart rate 63, BP 108/67, 100% on room air. Physical Examination: General: awake, alert, oriented x 3 and cooperative, laying in the medical surgical bed, fatigued but notes feeling improved, denies any discomfort at this time. Skin: normal color, turgor, no icterus, cyanosis. HEENT: AT/NC, EOMI, PERRLA, MMM. Lungs: CTA bilaterally, moderate effort, mild decrease BL bases, no rales, ronchi or wheezing; Heart: Regular rate and rhythm; no gallop, rub audible. Abdomen: soft, NTTP with no flank discomfort either, ND, normal BS. Extremities: no cyanosis, clubbing, or edema. Neurological: patient awake, alert, oriented as noted; cognitive function appears intact upon questioning,; pupils equally reactive to light and accomodation; cranial nerves II-XII grossly normal, moving all 4 extremities, strength improved, mildly to moderately global decrease. Psychiatric: affect appears fatigued otherwise normal, no acute evidence of depressive or anxiety feelings. Assessment and Plan: Please see hospital summary above. ABG / Lab / Microbiology Data Result Diagrams: 03/06/21 03:35 03/06/21 03:35 Laboratory: Laboratory Results - last 24 hr 03/05/21 03/06/21 03/06/21 12:03 03:35 03:35 WBC 6.8 RBC 3.44 L Hgb 10.3 L Hct 32.0 L MCV 93.0 MCH 29.9 MCHC 32.2 RDW Std Deviation 47.1 H RDW Coeff of Yun 13.8 Plt Count 224 MPV 10.5 Immature Gran % (Auto) 0.300 Neut % (Auto) 60.2 Lymph % (Auto) 27.4 [place] % (Auto) 7.5 Eos % (Auto) 3.7 Baso % (Auto) 0.9 Absolute Neuts (auto) 4.1 Absolute Lymphs (auto) 1.86 Nucleated RBC % 0 Sodium 138 142 Potassium 3.5 3.5 Chloride 111 H 115 H Carbon Dioxide 22.0 22.0 Anion Gap 5 5 BUN 8 7 Creatinine 0.69 0.58 Estim Creat Clear Calc 64.29 76.48 Est GFR (MDRD) Af Amer 110 133 Est GFR (MDRD) Non-Af 91 110 BUN/Creatinine Ratio 11.6 12.0 Glucose 109 H 138 H Calcium 8.9 8.8 Phosphorus 1.7 L Vancomycin Trough 03/06/21 03:35 WBC RBC Hgb Hct MCV MCH MCHC RDW Std Deviation RDW Coeff of Yun Plt Count MPV Immature Gran % (Auto) Neut % (Auto) Lymph % (Auto) [place] % (Auto) Eos % (Auto) Baso % (Auto) Absolute Neuts (auto) Absolute Lymphs (auto) Nucleated RBC % Sodium Potassium Chloride Carbon Dioxide Anion Gap BUN Creatinine Estim Creat Clear Calc Est GFR (MDRD) Af Amer Est GFR (MDRD) Non-Af BUN/Creatinine Ratio Glucose Calcium Phosphorus Vancomycin Trough 12.7 Microbiology: Microbiology 03/04/21 09:50 Blood Culture - Preliminary Blood Culture (Wb) - Anticubital Right No growth in 48 hours. 03/03/21 Unknown Urine Culture - Final Urine, Clean Catch Staphylococcus epidermidis Microbiology 03/04/21 09:50 Blood Culture (Wb) - Anticubital Right Blood Culture - Preliminary No growth in 48 hours. 03/03/21 Unknown Urine, Clean Catch Urine Culture - Final Staphylococcus epidermidis 03/03/21 15:05 Interface Orders SARS-CoV-2 Antigen (Rapid) - Final D/C Instructions Discharge Diet: Low fat / Low cholesterol May resume sexual activity in: - (Restrictions per Urology discretion.) Call your doctor if you observe: Fever of 101 or Higher and Inability to urinate Meaningful Use Info Meaningful Use Diagnoses (Choose all that apply): None applicable Discharge Plan Admission Admit Date/Time: 03/03/21 15:38 Primary Reason for Your Visit: R Obstructive Ureteral Calculus w/ UTI, Incidental prior CVA on CT Attending Provider: Angelita Garcia Primary Care Provider: Joe Carmichael Consulting Providers: Antoine Boogie Instructions Patient Instructions: What Is Ischemic Stroke?, Ureteral Stents, Understanding Kidney Stones, Treating Kidney Stones: Percutaneous Lithotripsy, Preventing Kidney Stones, ED Bladder Infection, Female (Adult) Discharge Orders/Prescriptions Prescriptions: New potassium chloride [Klor-Con M20] 20 mEq Tablet,Er Particles/Crystals 40 meq PO BIDCM 30 Days Qty: 60 RF: 0 oxycodone 5 mg Tablet 5 mg PO Q4H PRN PRN (Reason: Pain Score 4-5) 5 Days Qty: 30 RF: 0 Eliquis 5 mg Tablet 5 mg PO BID 30 Days Qty: 60 RF: 0 sulfamethoxazole-trimethoprim [Bactrim DS] 800-160 mg tablet 1 tab PO BID 7 Days Qty: 14 RF: 0 atorvastatin 40 mg tablet 40 mg PO QHS 30 Days Qty: 30 RF: 0 Continued lisinopril-hydrochlorothiazide 10-12.5 mg tablet 1 tab PO DAILY RF: 0 topiramate 100 mg tablet 100 mg PO DAILY RF: 0 bupropion HCl [Wellbutrin XL] 150 mg tablet extended release 24 hr 75 mg PO DAILY RF: 0 duloxetine 30 mg capsule,delayed release(DR/EC) 60 mg PO DAILY RF: 0 Discontinued Eliquis 5 mg tablet 5 mg PO DAILY RF: 0 Referrals / Follow Up: Antoine Boogie MD [STAFF PHYSICIAN] - (Follow-up in 1 week or per Urology discretion.) Joe Carmichael MD [Primary Care Provider] - (Follow-up within 3-5 days to review admission and also have repeat CBC, BMP as well as reassessment Phos and Mag given low levels during admission with repletion needed.) Disposition Disposition (needs filled in before D/C Order can be placed): Home, self care Charges/Coding Visit Charges Inpatient E&M: 01967 Disch Hosp
[2021-03-06 08:01] VITALS: BP 108/67; PULSE 63; RESP 18; TEMP 36.6; O2SAT 100
[2021-03-06] MEDS: buPROPion 75 MG Tablet 37.5 MG PO (08:09)
[2021-03-06] MEDS: Lisinopril 10 MG Tablet PO (08:09)
[2021-03-06] MEDS: Famotidine 20 MG Tablet PO (08:15)
[2021-03-06] MEDS: hydroCHLOROthiazide 12.5mg 12.5 MG PO (08:15)
[2021-03-06] MEDS: Topiramate 100 MG Tablet PO (08:16)
[2021-03-06] MEDS: DULoxetine Hcl 60 MG Capsule PO (08:16)
[2021-03-06] MEDS: APIXABAN 5 MG TABLET PO (08:16)
[2021-03-06] MEDS: Potassium Chloride Oral Tablet 20 MEQ 40 MEQ PO (08:16)
[2021-03-06 14:30] VITALS: BP 119/65; PULSE 65; RESP 16; TEMP 36.8; O2SAT 96
[2021-03-06] MEDS: Acetaminophen 325 MG Tablet 650 MG PO (15:39)
--- NOTE | 2021-03-06 16:58 | CASEMGMT ---
SW Note Referral Source: RN Reason for Referral: Patient was upset and crying at link trainer advised that patient got upset as patient thought that RN was upset with her. RN said that patient got upset at her daughter and the daughter went to get car for discharge. SW went to room and patient is tearful. She said that she asked question about staph and infecting her family with staph an the [employer] went to check on it and then she felt that staff were upset with her. Patient denied Suicide and stated she just felt she wanted to be alone, not to harm herself, but to not make mistakes or get people mad at me. Patient was able to engage in conversation. She was able to answer questions. Patient was noted to demonstrate deep breathing. SW discussed Intensive Outpatient Program (IOP) and provided patient with information on IOP program at [facility]. Patient confirmed she had been in counseling in the past. Patient expressed concern over her current hospitalization and medication costs. Patient said that she had not paid my bills yet. SW discussed [facility] and the services they provided. Patient said that she is aware of [facility] and declined this law writer making any referrals to [facility] or IOP program. Patient's daughter came into the room and patient stated I just want to go home'. Patient gave this law writer permission to speak to her in the presence of her daughter and update daughter. Patient's daughter said that she is aware that patient has had difficulty in the hospital and she feels that patient will be better at home. Patient gave handout to patient on [facility] and wrote down number for [facility]. SW spoke to patient's daughter who stated that patient gets like this. Patient's daughter stated that patient will be better when she gets home. Patient's daughter stated that she told her mom that she has to carry her cell phone at all time and that she will check on her daily when she brings food. Patient's daughter said that she lives close to patient. Patient daughter said that she will check in with patient daily and also spoke to patient's landlord about giving her, patient's daughter, a serrato into the apartment. Discussed the [facility] alert system and patient's daughter said that she didn't feel she was ready for that yet, referencing patient. Plan: Home. Patient and daughter given resources for patient. Patient declined referral for . Irma STEARNS
== END 2021-03-06 16:25 | disposition home or self-care (01) | DRG 661 ==
LOC: ED 14:45 → SDC 14:54 → AC 14:57 → MS3 17:52
PROVIDERS: Internal Medicine; Urology; Admitting Provider Family Medicine; Emergency Provider Emergency Medicine; PCP Internal Medicine; Visit Provider Family Medicine
PROC: 0T768DZ Dilation of Right Ureter with Intraluminal Device, Via Natural or Artificial Opening Endoscopic (ICD-10-PCS; principal; 2021-03-03 14:55)
DX: N13.6 Pyonephrosis (principal); I10 Essential (primary) hypertension; E66.9 Obesity, unspecified; F32.9 Major depressive disorder, single episode, unspecified; F41.9 Anxiety disorder, unspecified; Z68.38 Body mass index [BMI] 38.0-38.9, adult; K42.9 Umbilical hernia without obstruction or gangrene; E87.6 Hypokalemia; R73.9 Hyperglycemia, unspecified; B95.62 Methicillin resistant Staphylococcus aureus infection as the cause of diseases classified elsewhere; G50.0 Trigeminal neuralgia; Z79.01 Long term (current) use of anticoagulants; Z86.711 Personal history of pulmonary embolism; Z79.899 Other long term (current) drug therapy; Z91.81 History of falling; Z86.73 Personal history of transient ischemic attack (TIA), and cerebral infarction without residual deficits; Z86.718 Personal history of other venous thrombosis and embolism
CPT/HCPCS: 36415; 70450; 74177; 76000; 80048; 80053; 80061; 80202; 81001; 83036; 83690; 83735; 84100; 84443; 85025; 87040; 87077; 87086; 87088; 87186; 87426; 87641; 93306; 97166; 99251; 99285; J7030; J7040; J7050; P9612; Q9957; Q9967; A4216; C1769; C2617; G0463; J0696; J2405; J3490

== ENCOUNTER 2021-03-12 07:54 | Day surgery (SDC) | payer MEDICARE, SELFPAY ==
[2021-03-03 18:18] VITALS: BMI 38.5
[2021-03-12] VITALS (7 sets, daily range): BP systolic 101–133; BP diastolic 55–81; PULSE 52–64; RESP 14–16; TEMP 36.1–36.6; O2SAT 99–100; BMI 36.3
--- NOTE | 2021-03-12 08:00 | RAD_ITS ---
STUDY: X-RAY - ABDOMEN/PELVIS REASON FOR EXAM: Female, 65 years old. RIGHT KIDNEY STONE TECHNIQUE: Single AP view of the abdomen / pelvis. COMPARISON: None. FINDINGS: Status post cholecystectomy. There is an unremarkable bowel gas pattern. Right ureteral stent. 8 mm calcific opacity lateral to the mid aspect of the stent worrisome for ureteral stone. Normal soft tissue structures. Normal visualized osseous structures. RAD/Abdomen Single View IMPRESSION: Right ureteral stent with probable 8 mm of right ureteral stone. Electronically Signed: Kobi Jaquez MD at 17:01 EDT Tel , Service support ,
[2021-03-12] MEDS: Lactated Ringers 1,000 ML 100 ML IV ×2 (09:48→11:54)
--- NOTE | 2021-03-12 09:56 | PCM.HP.STD ---
HPI - General HPI Narrative JOSLYN ABRAHAM, is a 65 F who presents for treatment of a right kidney stone she underwent stent placement for obstructing stone stone in the mid right ureter. PFSH Medical History (Updated 03/08/21 @ 10:34 by Astrid Gonzalez) Anxiety Cardiology follow-up encounter Depression DVT (deep venous thrombosis) Heartburn History of diverticulitis History of edema History of irregular heartbeat History of stress test Hx of echocardiogram Hypertension Kidney stones Leg cramps Non-smoker Pulmonary embolism TIA (transient ischemic attack) Wears glasses Home Medications bupropion HCl [Wellbutrin XL] 75 mg PO DAILY 03/03/21 [History Last Taken 03/12/21 07:00 75 mg] duloxetine 60 mg PO DAILY 03/03/21 [History Last Taken 03/12/21 07:00 60 mg] lisinopril-hydrochlorothiazide 1 tab PO DAILY 03/03/21 [History Last Taken 03/03/21] topiramate 100 mg PO DAILY 03/03/21 [History Last Taken 03/12/21 07:00 100 mg] Eliquis 5 mg PO BID 30 Days #60 tab 03/06/21 [Rx Last Taken Unknown] oxycodone 5 mg PO Q4H PRN PRN 5 Days #30 tab 03/06/21 [Rx Last Taken Unknown] sulfamethoxazole-trimethoprim [Bactrim DS] 1 tab PO BID 7 Days #14 tab 03/06/21 [Rx Last Taken Unknown] sulfamethoxazole-trimethoprim [Bactrim DS] 1 tab PO BID 3 Days #6 tab 03/12/21 [Rx Last Taken Unknown] Allergy/AdvReac Type Severity Reaction Status Date / Time No Known Allergies Allergy Verified 03/08/21 10:16 Family History (Updated 03/03/21 @ 18:[address] Angelita Garcia MD) Mother Lung disease Father Kidney disease Surgical History (Updated 03/08/21 @ 10:34 by Astrid Gonzalez) History of 3 sections Hx of cholecystectomy Hx of colonoscopy Social History (Updated 03/03/21 @ 18:[address] Angelita Garcia MD) household members: none Smoking Status: Never smoker alcohol intake: never substance use type: does not use Vital Signs Vital Signs Vital Signs: 03/12/21 08:53 Temperature 97.5 F L Temperature Source Temporal Pulse Rate 64 Respiratory Rate 14 Respiratory Pattern Normal Blood Pressure 101/67 Blood Pressure Mean 78 Blood Pressure Source Monitor Blood Pressure Position Semi-Fowlers Blood Pressure Location Left Arm Pulse Ox 99 Oxygen Delivery Method Room Air Weight Weight: 90 kg Body Mass Index (BMI) 36.3 Physical Exam Const alert and oriented x3 General Appearance: cooperative HEENT normocephalic, head/scalp atraumatic, EAC's normal and TM's normal bilaterally Eyes PERRL and EOMs intact bilaterally Pupil: sluggish Neck no lymphadenopathy, supple and no JVD General: trachea midline Lymph Lymphatic: no lymphadenopathy noted, lymphedema and lymphadenopathy Resp normal respiratory effort, normal air movement and clear to auscultation bilaterally Cardio regular rate, regular rhythm and peripheral pulses 2+ throughout GI soft to palpation, non-tender and non-distended Extremity normal capillary refill and no clubbing, cyanosis or edema General Extremity: no tenderness to palpation of joints or extremities Skin no rashes or lesions noted General Skin Exam: turgor normal Lesions: no lesions Rashes: no rashes Neuro CN's II-XII intact bilaterally Speech: speech normal Motor Exam: strength 5/5 throughout; Negative for general weakness Psych thought process normal, cooperative and affect normal Appearance: appropriate Assessment & Plan Assessment/Plan (1) Kidney stone on right side: PLAN: Plan for right ESWL.
--- NOTE | 2021-03-12 09:57 | PCM.DC ---
Discharge Instructions Diet Discharge Diet: No restrictions Activity Discharge Activity: Return to Normal Activity and May Not Drive (while taking narcotic pain medications.) Dressing / Incision Call your doctor if you observe: Fever of 101 or Higher Follow Up Care Please Follow Up With: Antoine Boogie MD When: Call [phone] for an appointment Test Results: Test results from this visit will be discussed in further detail at your follow-up appointment, if applicable. Discharge Plan Admission Primary Reason for Your Visit: right shockwave lithotripsy Attending Provider: Antoine Boogie Primary Care Provider: Joe Carmichael Discharge Orders/Prescriptions Prescriptions: New sulfamethoxazole-trimethoprim [Bactrim DS] 800-160 mg tablet 1 tab PO BID 3 Days Qty: 6 RF: 0 Continued lisinopril-hydrochlorothiazide 10-12.5 mg tablet 1 tab PO DAILY RF: 0 topiramate 100 mg tablet 100 mg PO DAILY RF: 0 bupropion HCl [Wellbutrin XL] 150 mg tablet extended release 24 hr 75 mg PO DAILY RF: 0 duloxetine 30 mg capsule,delayed release(DR/EC) 60 mg PO DAILY RF: 0 oxycodone 5 mg Tablet 5 mg PO Q4H PRN PRN (Reason: Pain Score 4-5) 5 Days Qty: 30 RF: 0 sulfamethoxazole-trimethoprim [Bactrim DS] 800-160 mg tablet 1 tab PO BID 7 Days Qty: 14 RF: 0 Held Eliquis 5 mg Tablet 5 mg PO BID 30 Days Qty: 60 RF: 0 Hold Instructions: Resume on 03/14/21. Discontinued potassium chloride [Klor-Con M20] 20 mEq Tablet,Er Particles/Crystals 40 meq PO BIDCM 30 Days Qty: 60 RF: 0 Referrals / Follow Up: Antoine Boogie MD [STAFF PHYSICIAN] - Joe Carmichael MD [Primary Care Provider] - Disposition Discharge Orders: Discharge Patient (Routine); Ordered 03/12/21 Ordered By: Dr. Antoine Boogie
[2021-03-12] MEDS: Cefazolin 2 GM in 0.9% Normal Saline 100 ML IV (10:20)
--- NOTE | 2021-03-12 11:20 | OP.PCM_ITS ---
Report of Operation Date of Procedure: 03/12/21 Pre-Operative Diagnosis: Right ureteral calculi Post-Operative Diagnosis: Same Surgery/Procedure Performed:: Right extracorporeal shockwave lithotripsy Description of Surgical Findings:: Patient presents to the hospital for treatment of a kidney stone with shockwave lithotripsy. In the preoperative area and x-ray was done to confirm the location of the stone. The x-ray was reviewed and the stone location was reviewed. In the preoperative setting I spoke with the patient regarding the treatment of the stone how the treatment would be conducted and the expectations after surgery. The patient understands there is a risk of bleeding and infection. Also discussed the very rare risk of hematoma or damage to the kidney. We also discussed the risk that the shockwave machine will fail to break the stone adequately and that the patient may need other surgical procedures. We also discussed the possibility that the patient may need a stent after the procedure. After reviewing the procedure with the patient, the patient is signed the consent form all the patient's questions were addressed and was taken back to the operating room for treatment of a kidney stone. Patient was taken back to the operating room, patient was identified by the nursing staff, we identified the side of the treatment and the patient side of treatment had been marked by my initials. The patient underwent general anesthetic and was placed supine on the lithotripter table. We then used fluoroscopy to identify the stone on the right side. We then positioned the patient under the lithotripter and we used triangulation technique to identify the location of the stone and then we made sure that the stone was engaged in the F2 focal point of F2 Donier lithoprior machine. Once the patient was posi tioned appropriately and the stone was identified and placed in the F2 focal point of the lithotripter machine we then proceeded with shockwave lithotripsy. In the beginning the shockwave was delivered at a rate of 90 shocks per minute, we monitor the EKG for any ectopy. The power was slowly increased to 5 kV and subsequently at the 7 kV. We then proceeded with the treatment we move the therapy had around during the treatment to make sure the stone stayed in the F2 focal point during the entire treatment and after 3000 shockwaves were delivered to the stone under fluoroscopic guidance the treatment was completed. The patient was given instructions to call the office to make an a follow-up appointment with an xray to evaluate the success of the treatment, pateint understands that its possible the stones may need another procedure.At this point the patient's anesthetic was reversed patient was extubated and taken back to the PACU in stable condition. Type of Anesthesia: General Drains: stent in place Admit VTE Documentation VTE Present on Admission: No VTE Mechan Device Prophylaxis: SCD's
[2021-03-12] MEDS: Ketorolac 15 MG/ML Vial IV (11:43)
[2021-03-12] MEDS: oxyCODONE 5 MG Tablet PO (13:00)
== END 2021-03-12 13:43 ==
LOC: SDC 07:55 → AC 07:58
PROVIDERS: PCP Internal Medicine; Referring Provider Urology; Visit Provider Urology
PROC: (CPT 50590; principal; 2021-03-12 10:10)
DX: N20.2 Calculus of kidney with calculus of ureter (principal); I10 Essential (primary) hypertension; Z86.718 Personal history of other venous thrombosis and embolism; Z79.899 Other long term (current) drug therapy; Z79.01 Long term (current) use of anticoagulants; F41.9 Anxiety disorder, unspecified; F32.9 Major depressive disorder, single episode, unspecified; Z86.711 Personal history of pulmonary embolism; Z86.73 Personal history of transient ischemic attack (TIA), and cerebral infarction without residual deficits
CPT/HCPCS: 50590; 74018; J7120; J2405

== ENCOUNTER → 2021-03-18 15:40 | Outpatient (CLI) | payer MEDICARE, SELFPAY ==
[2021-03-12 08:53] VITALS: BMI 36.3
--- NOTE | 2021-03-18 15:54 | RAD_ITS ---
STUDY: X-RAY - ABDOMEN/PELVIS REASON FOR EXAM: Female, 65 years old. KIDNEY STONE TECHNIQUE: 1 view COMPARISON: Prior abdomen 03/12/2021 and abdomen and pelvic CT exam of 03/03/2021 FINDINGS: Normal visualized lung bases. There is an unremarkable bowel gas pattern. There is no demonstrated free abdominal air. The right ureteral pigtail catheter remains in good position proximally and distally. The right mid ureteral stone is not identified in the course of the ureter or in the urinary bladder. No other ureteral stones are identified. There is a 2.2 x 1.1 mm nonobstructing stone in the lower pole of the left kidney. 2 mm nonobstructing stone in the midpole of the right kidney. There are diffuse degenerative changes of the visualized lumbar spine. RAD/Abdomen Single View IMPRESSION: Right ureteral pigtail catheter remains in good position with no demonstrated ureteral or bladder stones. 2.2 x 1.1 mm nonobstructing stone in the lower pole of left kidney. 2 mm nonobstructing stone in the midpole of the right kidney. Electronically Signed: Marilee Medina MD at 16:11 EDT , Service support ,
== END ==
LOC: RAD 15:42
PROVIDERS: PCP Internal Medicine; Referring Provider Urology; Visit Provider Urology
DX: N20.0 Calculus of kidney (principal)
CPT/HCPCS: 74018

== ENCOUNTER 2021-04-14 18:57 | Emergency (ER) | payer MEDICARE, SELFPAY ==
[2021-03-12 08:53] VITALS: BMI 36.3
[2021-04-14 18:58] VITALS: BP 126/82; PULSE 96; RESP 16; TEMP 36.3; O2SAT 98; BMI 32.8
--- NOTE | 2021-04-14 19:19 | EKG12_ITS ---
Test Reason : DYSRHYTHMIA Blood Pressure : / mmHG Vent. Rate : 064 BPM Atrial Rate : 064 BPM P-R Int : 164 ms QRS Dur : 082 ms QT Int : 394 ms P-R-T Axes : 027 -12 004 degrees QTc Int : 406 ms Normal sinus rhythm Normal ECG Confirmed by MARKUS CM, WILMAR ([id number]), technical editor GRAY RICE [id number]) on 04/16/2021 9:25:12 AM Referred By: MEMO Confirmed By:ARMEN APARICIO MD
--- NOTE | 2021-04-14 19:20 | EDS_ITS ---
HPI History of Present Illness Chief Complaint: Headache Detail of Chief Complaint: Head and neck pain Informant: patient Narrative Narrative: Patient presents to the emergency department complaint of a pain in the left side of her head at the skull base that is sharp and stabbing and intermittent and only lasts a second or 2 but then the pain shoots down her left shoulder and down her arm. Patient also has been feeling discomfort into her jaw and her front teeth. Last evening she had some palpitations and some chest discomfort while standing in the kitchen. She denies exertional dyspnea. The head pain she has had off-and-on for years she states. 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 Patient has history of trigeminal neuralgia. Patient sees a neurologist for the trigeminal neuralgia. She has no heart history but her brother had an ND in his mid 50s. Prior similar symptoms: Yes PFSH PFSH Medical History (Updated 04/14/21 @ 20:[address] Jaylene Schumacher DO) Anxiety Cardiology follow-up encounter Depression DVT (deep venous thrombosis) Heartburn History of diverticulitis History of edema History of irregular heartbeat History of stress test Hx of echocardiogram Hypertension Kidney stones Leg cramps Non-smoker Pulmonary embolism TIA (transient ischemic attack) Wears glasses Home Medications bupropion HCl [Wellbutrin XL] 75 mg PO DAILY 03/03/21 [History Last Taken 03/12/21 07:00 75 mg] duloxetine 60 mg PO DAILY 03/03/21 [History Last Taken 03/12/21 07:00 60 mg] lisinopril-hydrochlorothiazide 1 tab PO DAILY 03/03/21 [History Last Taken 03/03/21] topiramate 100 mg PO DAILY 03/03/21 [History Last Taken 03/12/21 07:00 100 mg] Eliquis 5 mg PO BID 30 Days #60 tab 03/06/21 [Rx Last Taken Unknown] oxycodone 5 mg PO Q4H PRN PRN 5 Days #30 tab 03/06/21 [Rx Last Taken Unknown] prednisone 20 mg PO BID #10 tab 04/14/21 [Rx Last Taken Unknown] Allergy/AdvReac Type Severity Reaction Status Date / Time No Known Allergies Allergy Verified 04/14/21 18:58 Family History (Updated 03/03/21 @ 18:[address] Angelita Garcia MD) Mother Lung disease Father Kidney disease Surgical History History of 3 sections Hx of cholecystectomy Hx of colonoscopy Social History (Updated 03/03/21 @ 18:[address] Angelita Garcia MD) household members: none Smoking Status: Never smoker alcohol intake: never substance use type: does not use ROS ROS ED Constitutional Constitutional ED: Reports systems reviewed and no addt'l complaints, except as documented; Denies body ache(s), change in weight or chills Eyes Eyes: Denies acute decrease in peripheral vision, change in vision, double vision or loss of vision ENT ENT ED: Reports none; Denies ear pain, lip swelling, loss taste/smell, neck pain, otalgia or sore throat Cardiovascular Cardiovascular: Reports none; Denies abdominal pain, chest pain with activity, leg edema, lightheadedness, palpitations, rapid heart rate or syncope Respiratory/Chest Respiratory/Chest: Reports none; Denies change in mental status, dry cough, dyspnea, hemoptysis, shortness of breath at rest or shortness of breath with exertion Gastrointestinal Gastrointestinal: Reports none; Denies abdominal pain, change in stool character, diarrhea, hematemesis, hematochezia, melena, rectal bleeding or vomiting Genitourinary Genitourinary ED: Reports none; Denies abdominal discomfort, anuria, dysuria, genital pain or polyuria Musculoskeletal Musculoskeletal: Reports none and neck pain; Denies arthralgias, back pain, difficulty walking, extremity pain, muscle weakness or myalgias Integumentary Reports none; Denies abscess or rash Neurologic Neurologic: Reports none and headache(s); Denies abnormal gait, confusion, focal weakness, frequent falls, loss of vision, numbness, paresthesias, radicular pain, vertigo or weakness Psychiatric Psychiatric: Reports systems reviewed and no addt'l complaints, except as documented and none; Denies behavioral changes, confusion, difficulty concentrating, hallucinations, suicidal ideation, tactile hallucinations or visual hallucinations Endocrine Endocrinology: Denies none, cold intolerance, excessive sweating, fatigue or heat intolerance Hematologic/Lymphatic Hematologic/Lymphatic: Reports none; Denies anemia, easy bleeding or easy bruising Allergic/Immunologic Allergic/Immunologic ED: Denies as per HPI, none, lip swelling, mouth swelling, throat swelling, tongue swelling or hives EXAM Physical Exam Const Vital Signs: 04/14/21 18:58 Temperature 97.3 F L Temperature Source Temporal Pulse Rate 96 Respiratory Rate 16 Blood Pressure 126/82 H Blood Pressure Mean 96 Pulse Ox 98 Oxygen Delivery Method Room Air Positive well nourished and well developed General Appearance ED: well developed and NAD HEENT Reports TM's clear and moist mucous membranes normocephalic and atraumatic; Negative for trauma or tenderness Tympanic Membrane ED: Yes TM's clear Eyes PERRL and EOMs intact bilaterally General Eye ED: Negative for pale conjunctiva or scleral icterus Neck no lymphadenopathy, supple and no JVD General: Negative for tenderness Chest Wall inspection of chest normal and palpation of chest normal Chest: Negative for tenderness Resp normal respiratory effort and clear to auscultation bilaterally Effort and Inspection: Negative for respiratory distress or pain with movement Auscultation: Negative for rhonchi, wheezes or diminished lung sounds Cardio regular rate, regular rhythm, S1 normal heart sound, S2 normal heart sound and no murmurs Peripheral Pulses: pulses 2+ throughout GI normal to inspection, nondistended, normoactive bowel sounds, soft to palpation, non-tender, non-distended and no masses Back/Spine no CVA tenderness and no thoracic nor lumbar tenderness Extremity normal to inspection General Extremety ED: Negative for edema General Extremity: Negative for edema Neuro oriented x3, CN's II-XII intact bilaterally, no sensory deficits noted and gait normal Sensorium / Orientation: awake, alert, oriented to person, oriented to place and oriented to time Motor Exam: strength 5/5 throughout and strength abnormal Psych mental status grossly normal Skin no rashes or lesions noted and no wounds MDM MDM MDM Narrative Medical decision making narrative: Results discussed with patient. At this point etiology of her symptoms unclear. In the differential would be occipital neuritis versus cervical radiculopathy. I do not feel patient is having an acute coronary syndrome. Patient will be given a prescription for prednisone fo r a few days. She has oxycodone leftover from when she had a kidney stone recently and she can use that for severe pain as needed. Patient will follow up with her primary care physician and request neurology evaluation if symptoms do not improve. Lab Data Attestation: I reviewed the patient's lab results. Labs: Laboratory Results - last 24 hr 04/14/21 04/14/21 19:40 19:40 WBC 6.9 RBC 4.52 Hgb 13.7 Hct 41.3 MCV 91.4 MCH 30.3 MCHC 33.2 RDW Std Deviation 47.4 H RDW Coeff of Yun 14.1 Plt Count 325 MPV 10.0 Immature Gran % (Auto) 0.100 Neut % (Auto) 57.4 Lymph % (Auto) 33.2 [place] % (Auto) 7.1 Eos % (Auto) 1.3 Baso % (Auto) 0.9 Absolute Neuts (auto) 4.0 Absolute Lymphs (auto) 2.30 Nucleated RBC % 0 Sodium 138 Potassium 3.6 Chloride 108 H Carbon Dioxide 22.0 Anion Gap 8 BUN 18 Creatinine 1.10 H Estim Creat Clear Calc 47.73 Est GFR (MDRD) Af Amer 64 Est GFR (MDRD) Non-Af 53 L BUN/Creatinine Ratio 16.4 Glucose 106 Calcium 10.0 Troponin I High Sens 8.1 Radiography Diagnostic Testing: Radiology Impression Brain CT 04/14/21 19:53 IMPRESSION: No acute intracranial abnormality. 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 Chronic ischemic changes of the brain. Electronically Signed: Noble Alex MD at 20:10 EDT Tel , Service support , EKG Initial EKG: Comments: Sinus rhythm with a ventricular rate of 64 bpm with no acute ST segment changes. Discharge Plan Triage Chief Complaint: Headache ED Provider: Jaylene Schumacher Dx/Rx/DC Orders Clinical Impression: Occipital neuritis, Cervical radiculopathy Prescriptions: New prednisone 20 mg tablet 20 mg PO BID Qty: 10 RF: 0 No Action lisinopril-hydrochlorothiazide 10-12.5 mg tablet 1 tab PO DAILY RF: 0 topiramate 100 mg tablet 100 mg PO DAILY RF: 0 bupropion HCl [Wellbutrin XL] 150 mg tablet extended release 24 hr 75 mg PO DAILY RF: 0 duloxetine 30 mg capsule,delayed release(DR/EC) 60 mg PO DAILY RF: 0 oxycodone 5 mg Tablet 5 mg PO Q4H PRN PRN (Reason: Pain Score 4-5) 5 Days Qty: 30 RF: 0 Eliquis 5 mg Tablet 5 mg PO BID 30 Days Qty: 60 RF: 0 Hold Instructions: Resume on 03/14/21. Primary Care Provider: Joe Carmichael Referrals: Joe Carmichael MD [Primary Care Provider] - 3-5 Days Disposition Disposition: Home, Self Care
[2021-04-14] MEDS: 0.9% Normal Saline 1,000 ML 150 ML IV (19:42)
--- NOTE | 2021-04-14 19:53 | CT_ITS ---
EXAMINATION : Head CT w/out contrast HISTORY : headache COMPARISON : 03/03/2021. TECHNIQUE : Multiple contiguous axial images were obtained from the skull base to the vertex without intravenous contrast. A radiation dose optimization technique was used for this scan. FINDINGS : There is no evidence for acute intracranial hemorrhage, mass effect, or midline shift. There is no extra-axial fluid collection. Normal ventricles and sulci. There are periventricular white matter changes consistent with chronic microvascular ischemic disease. There is normal chavira-white differentiation, without CT evidence of acute ischemia or infarct. 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 The skull base and calvarium are unremarkable. The orbits are unremarkable. The paranasal sinuses are clear. The mastoid air cells are well-aerated. The soft tissues are unremarkable. CT/Brain/Head without Contrast IMPRESSION: No acute intracranial abnormality. 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 Chronic ischemic changes of the brain. Electronically Signed: Noble Alex MD at 20:10 EDT Tel , Service support ,
[2021-04-14 19:59] LABS: Basophil# 0.06 X10^3/uL; Basophil% 0.9 % (0-1); Eosinophil# 0.09 X10^3/uL; Eosinophils% 1.3 % (0-5); Hematocrit 41.3 % (37-47); Hemoglobin 13.7 g/dL (12.0-15.0); Lymphocyte % 33.2 % (19-41); Mean Corp Hgb Conc 33.2 g/dL (32-36); Mean Corpuscular Hgb 30.3 pg (27.0-32.0); Mean Corpuscular Volume 91.4 fL (81-99); Monocyte# 0.49 X10^3/uL; Monocyte% 7.1 % (0-10); NRBC Flagged by Analyzer 0 % (0-5); Neutrophil # 3.98 X10^3/uL (2.7-7.7); Neutrophil % 57.4 % (47-70); Platelet Count 325 K/mm3 (150-450); RBC Distribution Width CV 14.1 % (11.6-14.6); RBC Distribution Width SD 47.4 fl (35.1-43.9); Red Blood Count 4.52 M/mm3 (4.2-5.4); White Blood Count 6.9 K/mm3 (4.4-11.0)
[2021-04-14 20:23] LABS: Anion Gap 8 (5-15); BUN 18 mg/dL (7-18); BUN/Creat Ratio 16.4 RATIO (10-20); Chloride 108 mmol/L (98-107); EST Glomerular Filtration Rate 53 mL/min (>60); Est Glom Filt Rate - Afr Amer 64 mL/min (>60); Estimated Creatinine Clearance 47.73 ml/min; Glucose 106 mg/dL (74-106); Potassium 3.6 mmol/L (3.5-5.1); Sodium Level 138 mmol/L (136-145); Troponin-I HS 8.1 pg/mL (3.0-53.7)
[2021-04-14 20:57] VITALS: BP 110/74; PULSE 65; RESP 16; O2SAT 97
== END 2021-04-14 21:04 | disposition home or self-care (01) ==
PROVIDERS: Emergency Provider Emergency Medicine; PCP Internal Medicine
DX: H46.9 Unspecified optic neuritis (principal); M54.12 Radiculopathy, cervical region; I10 Essential (primary) hypertension; F32.9 Major depressive disorder, single episode, unspecified; Z86.718 Personal history of other venous thrombosis and embolism; Z79.01 Long term (current) use of anticoagulants; Z79.899 Other long term (current) drug therapy
CPT/HCPCS: 70450; 80048; 84484; 85025; 93005; 99285; J7030; A4216

== ENCOUNTER 2022-11-28 09:52 | Emergency (ER) | payer MEDICARE, SELFPAY ==
[2022-11-28 09:53] VITALS: BP 122/83; PULSE 93; RESP 18; TEMP 36.6; O2SAT 100; BMI 41.9
--- NOTE | 2022-11-28 10:43 | EDS_ITS ---
HPI History of Present Illness HPI Narrative: Left thigh pain since a fall over a month ago. Had a negative ultrasound being evaluated for DVT at a hospital in [place]. No fever or chills. No redness. Chief Complaint: Lower Extremity Injury Informant: patient and family Occured/Mechanism Mechanism/Context: Yes injury and Yes blunt trauma Onset/Context/Timing Onset: Weeks Context: Gradual Onset Timing: Continuous Quality of Pain: Dull and Aching Current Severity: Mild Maximum Severity: Moderate Associated Symptoms Associated Symptoms: Negative for Parasthesia, Weakness or Loss of Funtion Narrative Narrative: C7-year-old female history of A-fib and prior DVT and PE on Eliquis. Patient states that she is originally from [place] she is moving to this area to be with family. She was walking down icy steps when she got to the bottom she slipped and fell this was around October 17. Several days later she started getting left thigh pain. She was seen in the emergency department by her home and by her primary care physician. They found that she had A-fib. They did an ultrasound of her leg and found no clots. She denies having any x-rays done. States she has been on muscle relaxants they have even put her on antianxiety meds and nothing is relieved her discomfort. Its not specifically worse with walking. She noticed no swelling or redness to the leg. She has had no fever. Prior similar symptoms: Yes Recent Illness/Hospitalization: No PFSH PFSH Medical History A-fib Anxiety Cardiology follow-up encounter Depression DVT (deep venous thrombosis) Heartburn History of diverticulitis History of edema History of irregular heartbeat History of stress test Hx of echocardiogram Hypertension Kidney stones Leg cramps Non-smoker Pulmonary embolism TIA (transient ischemic attack) Wears glasses Home Medications bupropion HCl 150 mg 24 hr tablet, extended release (Wellbutrin XL) 75 mg PO DAILY Check with primary doctor 03/03/21 [History Last Taken 03/12/21 07:00 75 mg] duloxetine 30 mg capsule,delayed release 60 mg PO DAILY 03/03/21 [History Last Taken 03/12/21 07:00 60 mg] lisinopril 10 mg-hydrochlorothiazide 12.5 mg tablet 1 tab PO DAILY 03/03/21 [History Last Taken 03/03/21] topiramate 100 mg tablet 100 mg PO DAILY 03/03/21 [History Last Taken 03/12/21 07:00 100 mg] apixaban 5 mg tablet (Eliquis) 5 mg PO BID 30 days #60 tabs 03/06/21 [Rx Last Taken Unknown] oxycodone 5 mg tablet 5 mg PO Q4H PRN PRN Pain Score 4-5 5 days #30 tabs 03/06/21 [Rx Last Taken Unknown] prednisone 20 mg tablet 20 mg PO BID #10 tabs 04/14/21 [Rx Last Taken Unknown] oxycodone-acetaminophen 5 mg-325 mg tablet (Percocet) 1 tab PO Q6H PRN pain 3 days #10 tabs 11/28/22 [Rx Last Taken Unknown] Allergy/AdvReac Type Severity Reaction Status Date / Time No Known Allergies Allergy Verified 11/28/22 09:53 Family History Mother Lung disease Father Kidney disease Surgical History History of 3 sections Hx of cholecystectomy Hx of colonoscopy Social History household members: none Smoking Status: Never smoker alcohol intake: never substance use type: does not use ROS ROS ED ROS Narrative Denies recent illness. Review of Systems ROS Unobtainable: Denies due to encephalopathy Constitutional Constitutional ED: Denies chills or fever(s) Eyes Eyes: Denies blurry vision ENT ENT ED: Denies ear pain Cardiovascular Cardiovascular: Denies chest pain Respiratory/Chest Respiratory/Chest: Denies cough or dyspnea Gastrointestinal Gastrointestinal: Denies abdominal pain Genitourinary Genitourinary ED: Denies dysuria or hematuria Musculoskeletal Musculoskeletal: Denies arthralgias, back pain, myalgias or neck pain Integumentary Denies abscess or Abrasions Neurologic Neurologic: Denies headache(s) Psychiatric Psychiatric: Denies anxiety Endocrine Endocrinology: Denies polydipsia Hematologic/Lymphatic Hematologic/Lymphatic: Denies easy bleeding Allergic/Immunologic Allergic/Immunologic ED: Denies mouth swelling or tongue swelling EXAM Physical Exam Narrative Exam Narrative: 67-year-old female no acute distress. Vital signs stable afebrile. She is lying in bed sitting upright. Daughter is at bedside. She is in no distress. H EENT exam unremarkable atraumatic. Lungs clear. Heart irregularly irregular rate about 75-80. No murmur. Chest wall and ribs nontender. Abdomen soft and nontender. Pelvic girdle intact. Moving all 4 extremities. Full range of motion. She has full flexion-extension of the left hip knee ankle and foot. There is no bony deformities no bony tenderness. Her thigh there is no redness or warmth. There is no bruising. She has full flexion and extension internal and external rotation of the hip without any difficulty actively. There is no signs of septic joint. No signs of fracture or dislocation. No rotation or deformity. No shortening. Back and spine are nontender. Neurologically she is awake and alert. She is a very benign exam. Const Vital Signs: 11/28/22 09:53 Temperature 97.8 F Temperature Source Temporal Pulse Rate 93 Respiratory Rate 18 Blood Pressure 122/83 H Blood Pressure Mean 96 Pulse Ox 100 Oxygen Delivery Method Room Air Positive well nourished, well developed and obese; Negative for cachectic, contractures or unkempt General Appearance ED: well developed and NAD; Negative for unkempt, cachectic or contractures Nutritional Appearance: obese; Negative for cachectic HEENT Reports moist mucous membranes normocephalic and atraumatic; Negative for trauma or tenderness Eyes PERRL General Eye ED: Negative for other Neck full ROM and supple Thyroid: Negative for tender Lymph Lymphatic: Negative for other Chest Wall inspection of chest normal and palpation of chest normal Chest: Negative for other Resp normal respiratory effort, no retractions and clear to auscultation bilaterally Effort and Inspection: Negative for pain with movement Auscultation: Negative for rales, rhonchi or wheezes Cardio regular rate, S1 normal heart sound, S2 normal heart sound and no murmurs; Negative for regular rhythm Cardio Narrative: A-fib at about 80. Rate: Negative for bradycardia or tachycardic Rhythm: abnormal rhythm GI non-tender, non-distended and no masses Inspection: Negative for abdominal distention Auscultation: normoactive bowel sounds Palpation: soft; Negative for tender or guarding Back/Spine no CVA tenderness General Back: Negative for CVA tenderness Cervical Spine: Negative for cervical spine tenderness Thoracic Spine / Upper Back: Negative for thoracic spinal tenderness Lumbar Spine / Lower Back: Negative for lumbar spinal tenderness Extremity normal to inspection and full ROM General Extremety ED: Negative for cyanosis or edema General Extremity: Negative for cyanosis or edema Neuro oriented x3, CN's II-XII intact bilaterally and moves all extremities Sensorium / Orientation: alert, oriented to person, oriented to place and oriented to time; Negative for orientation impaired, confused, lethargic or stuporous Motor Exam: strength 5/5 throughout Psych mental status grossly normal Appearance: Negative for unkempt Speech: No other Mood & Affect: Negative for anxious Skin no wounds Lesions: no lesions Rashes: no rashes Trauma: Negative for abrasion or laceration MDM MDM MDM Narrative Medical decision making narrative: 37-year-old female no acute distress with nonreproducible left thigh pain. No signs of infection. No bruising or hematoma. No signs of fracture or dislocation. X-rays are being obtained. She has had a prior negative ultrasound at another facility. And there is no signs of DVT. Repeat exam at 12:25 PM. No changes. Strong pulse. No swelling. No reproducible tenderness in her thigh. Normal range of motion of both the hip and knee. No discoloration. No redness or warmth. No effusions. I went over the x-rays with the patient and daughter they are unremarkable. They requested something for pain she will be given 10 Percocet. Follow-up with her primary care physician Dr. Joe Carmichael and local orthopedics. Radiography Diagnostic Testing: Clinical Impression(s) from Imaging Studies Femur X-Ray 11/28/22 10:45 IMPRESSION: Normal x-ray examination of the femur. Electronically Signed: Kalia Garnica MD at 11:25 EST , Pelvis X-Ray 11/28/22 10:45 IMPRESSION: No acute adenopathy is seen Electronically Signed: Kalia Garnica MD at 11:24 EST , Pelvis x-ray single view, interpreted by myself and the radiologist shows no acute abnormality. Single view. Left femur x-ray multiple views interpreted by myself multiple views of the left femur shows no acute fracture. No dislocation. Interpreted by myself and the radiologist. Discharge Plan Triage Chief Complaint: Lower Extremity Injury ED Provider: Hugh Ashraf Dx/Rx/DC Orders Clinical Impression: Fall, Acute pain of left thigh Prescriptions: New oxycodone-acetaminophen [Percocet] 5-325 mg tablet 1 tab PO Q6H PRN (Reason: pain) 3 Days Qty: 10 0RF No Action lisinopril-hydrochlorothiazide 10-12.5 mg tablet 1 tab PO DAILY topiramate 100 mg tablet 100 mg PO DAILY bupropion HCl [Wellbutrin XL] 150 mg tablet extended release 24 hr 75 mg PO DAILY Label Comments: pt states her prescribed medication dose was 150 mg as per external med history. pt states she didn't like how is made her heart feel so she cut it in half- states did not inform or consult with PCP regarding side effects/ change in dose. Encouraged pt to do so, aware of risks/ramifications. duloxetine 30 mg capsule,delayed release(DR/EC) 60 mg PO DAILY oxycodone 5 mg Tablet 5 mg PO Q4H PRN PRN (Reason: Pain Score 4-5) 5 Days Qty: 30 0RF Rx Instructions: SOME LEFT OVER FROM KIDNEY STONES Eliquis 5 mg Tablet 5 mg PO BID 30 Days Qty: 60 0RF Hold Instructions: Resume on 03/14/21. prednisone 20 mg tablet 20 mg PO BID Qty: 10 0RF Primary Care Provider: Joe Carmichael Referrals: Izaiah Walter MD [Med Staff - Active Staff] - 1-2 Weeks Tai Patterson MD [Med Staff - Active Staff] - As soon as possible Joe Carmichael MD [Primary Care Provider] - 3-5 Days Activity Restrictions/Additional Instructions: The x-rays of your pelvis and left femur were unremarkable. Suspect the pain is from a soft tissue injury. Limited Tylenol Motrin for pain. Percocet for more severe pain. Follow-up with your primary care physician Dr. Joe Carmichael. Dr. Tai Patterson of orthopedics to reevaluate your thigh pain. Dr. Walter for cardiology for your A-fib. Continue your current medications. Stop the [place] and you can use the Percocet. Disposition Disposition: Home, Self Care
--- NOTE | 2022-11-28 10:45 | RAD_ITS ---
STUDY: X-RAY - PELVIS REASON FOR EXAM: Female, 67 years old. Recent fall. TECHNIQUE: One view of the pelvis was obtained. COMPARISON: None. FINDINGS: There is a non-specific bowel gas pattern. Normal visualized soft tissue structures. Normal bilateral iliac wings, sacroiliac joints and visualized sacrum. Normal visualized bilateral superior and inferior pubic rami. There are degenerative changes of the pubic symphysis with articular narrowing and sclerosis. Normal ischial tuberosities. Normal visualized right femoral head. Normal right acetabulum. Normal right hip joint. Normal visualized left femoral head. Normal left acetabulum. Normal left hip joint. RAD/Pelvis 1 or 2 Views IMPRESSION: No acute adenopathy is seen Electronically Signed: Kalia Garnica MD at 11:24 EST ,
--- NOTE | 2022-11-28 10:45 | RAD_ITS ---
STUDY: X-RAY - LEFT FEMUR REASON FOR STUDY: Female, 67 years old. Fall w/ left femur pain TECHNIQUE: 4 view(s) of the femur. COMPARISON: None. FINDINGS: Normal visualized femur. Normal visualized soft tissue structure. RAD/Femur Min 2 Views IMPRESSION: Normal x-ray examination of the femur. Electronically Signed: Kalia Garnica MD at 11:25 EST ,
[2022-11-28 12:43] VITALS: BP 123/87; PULSE 74; RESP 16; TEMP 36.6; O2SAT 99
== END 2022-11-28 13:13 | disposition home or self-care (01) ==
PROVIDERS: Emergency Provider Emergency Medicine; PCP Internal Medicine; Visit Provider Emergency Medicine
DX: M79.652 Pain in left thigh (principal); E66.9 Obesity, unspecified; Z86.73 Personal history of transient ischemic attack (TIA), and cerebral infarction without residual deficits; Z86.711 Personal history of pulmonary embolism; Z79.01 Long term (current) use of anticoagulants
CPT/HCPCS: 72170; 73552; 99282

== ENCOUNTER 2022-12-16 10:14 | Emergency (ER) | payer MEDICARE, SELFPAY ==
[2022-12-16 10:15] VITALS: BP 138/94; PULSE 110; RESP 20; TEMP 36.1; O2SAT 97; BMI 41.6
--- NOTE | 2022-12-16 11:00 | EDS_ITS ---
HPI History of Present Illness Chief Complaint: Back Onset/Context/Timing Onset: Month(s) (2) Context: Gradual Onset Timing: Continuous Quality: Aching Location: Lumbar and Left Leg Worsened by: improves with Movement Relieved by: Remaining Still (Laying down) Associated Symptoms Associated Symptoms: Tingling and Radiation to Left Leg; Negative for Numbness, Radiation to Right Leg, Fever, Abdominal Pain, Dysuria, Unable to Ambulate, Unable to Transfer, Urinary Retention, Urinary Incontinence, Constipation or Fecal Incontinence Narrative Narrative: Patient presents with back and left leg pain that has been constant for the past 2 months. Patient states her pain is in her low back. Patient states she has some paresthesias in her left lower extremity, mainly the front of her thigh and lower leg. Patient admits to some tingling in this area. Patient states she has been seeing a chiropractor for this which helps briefly. Patient states her pain is better when she is laying. Patient states it is worse with certain movements. Patient describes her pain as aching. Patient denies any bowel or bladder changes. Patient denies any saddle anesthesia. [facility] Medical History A-fib Anxiety Cardiology follow-up encounter Cervical radiculopathy Depression DVT (deep venous thrombosis) Essential hypertension Fall Heartburn History of diverticulitis History of edema History of irregular heartbeat Kidney stones Leg cramps Leukocytosis Non-smoker Occipital neuritis Paroxysmal atrial fibrillation Pulmonary embolism TIA (transient ischemic attack) Wears glasses Home Medications topiramate 100 mg tablet 100 mg PO DAILY 03/03/21 [History Last Taken 03/12/21 07:00 100 mg] apixaban 5 mg tablet (Eliquis) 5 mg PO BID 30 days #60 tabs 03/06/21 [Rx Last Taken Unknown] Effexor 12/16/22 [History Last Taken Unknown] buspirone 5 mg tablet 5 mg PO BID 12/16/22 [History Last Taken Unknown] metoprolol succinate 25 mg tablet,extended release 24 hr 25 mg PO DAILY 12/16/22 [History Last Taken Unknown] oxycodone-acetaminophen 5 mg-325 mg tablet 1 tab PO Q6H PRN PRN Pain 3 days #12 TABLETS 12/16/22 [Rx Last Taken Unknown] Allergy/AdvReac Type Severity Reaction Status Date / Time No Known Allergies Allergy Verified 12/16/22 10:15 Family History Mother Lung disease Father Kidney disease Surgical History History of 3 sections History of lithotripsy (03/12/21) Hx of cholecystectomy Hx of colonoscopy Social History household members: none Smoking Status: Never smoker alcohol intake: never substance use type: does not use ROS ROS ED Constitutional Constitutional ED: Denies chills or fever(s) Eyes Eyes: Denies blurry vision or change in vision ENT ENT ED: Denies rhinorrhea or sore throat Cardiovascular Cardiovascular: Denies chest pain or palpitations Respiratory/Chest Respiratory/Chest: Denies cough or dyspnea Gastrointestinal Gastrointestinal: Denies nausea or vomiting Genitourinary Genitourinary ED: Denies dysuria or hematuria Musculoskeletal Musculoskeletal: Reports back pain; Denies neck pain Integumentary Denies abscess or rash Neurologic Neurologic: Reports paresthesias LLE; Denies headache(s) or weakness Allergic/Immunologic Allergic/Immunologic ED: Denies mouth swelling or urticaria EXAM Physical Exam Const Vital Signs: 12/16/22 10:15 Temperature 97 F L Temperature Source Temporal Pulse Rate 110 H Respiratory Rate 20 H Blood Pressure 138/94 H Blood Pressure Mean 108 Pulse Ox 97 Oxygen Delivery Method Room Air Positive well nourished, well developed and obese General Appearance ED: well developed and NAD Nutritional Appearance: obese HEENT Reports moist mucous membranes Neck supple and no JVD Resp normal respiratory effort and clear to auscultation bilaterally Cardio regular rate, regular rhythm and no murmurs GI normal to inspection, nondistended, normoactive bowel sounds and non-tender Palpation: soft Back/Spine Back/Spine Narrative: There is mild tenderness over the left lumbar paraspinal area. There is no bony crepitance or step-off. There is good range of motion. Straight leg raises were negative bilaterally. Strength is 5/5 bilaterally in the upper and lower extremities. There are no sensory deficits noted. There is no saddle anesthesia. Extremity normal to inspection General Extremety ED: Negative for edema or tenderness General Extremity: Negative for edema Neuro oriented x3, CN's II-XII intact bilaterally and no sensory deficits noted Sensorium / Orientation: alert Motor Exam: strength 5/5 throughout Deep Tendon Reflexes: Rt Patellar (L4): 2+, Lt Patellar (L4): 2+, Rt Ankle (S1): 2+ and Lt Ankle (S1): 2+ Deep Tendon Reflexes Back: Rt Patellar (L4): 2+, Lt Patellar (L4): 2+, Rt Ankle (S1): 2+ and Lt Ankle (S1): 2+ Psych mental status grossly normal Skin no rashes or lesions noted MDM MDM MDM Narrative Medical decision making narrative: Differential diagnosis includes lumbosacral strain, sciatica, lumbar radiculopathy, electrolyte abnormality, femoral hernia, and acute kidney injury. CBC will be obtained to assess for anemia and leukocytosis. Basic metabolic profile will be obtained to assess for electrolyte abnormality and renal function. PT with INR and PTT will be obtained to assess for coagulopathy. CT scan of the abdomen pelvis will be obtained to assess for renal calculus and femoral hernia. Lab Data Attestation: I reviewed the patient's lab results. Lab results narrative: CBC was reviewed and was within normal limits. Basic metabolic profile was reviewed and was essentially within normal limits. Potassium was slightly low at 3.3. Urinalysis was reviewed. There is no evidence of urinary tract infection or hematuria. Labs: Laboratory Results - last 24 hr 12/16/22 12/16/22 12/16/22 11:30 11:30 11:43 WBC 8.2 RBC 4.40 Hgb 13.3 Hct 40.7 MCV 92.5 MCH 30.2 MCHC 32.7 RDW Std Deviation 48.8 H RDW Coeff of Yun 14.3 Plt Count 306 MPV 9.8 Immature Gran % (Auto) 0.400 Neut % (Auto) 76.5 H Lymph % (Auto) 16.0 L [place] % (Auto) 5.0 Eos % (Auto) 1.5 Baso % (Auto) 0.6 Absolute Neuts (auto) 6.3 Absolute Lymphs (auto) 1.32 Nucleated RBC % 0 Sodium 143 Potassium 3.3 L Chloride 116 H Carbon Dioxide 21.0 Anion Gap 6 BUN 17 Creatinine 0.84 Estim Creat Clear Calc 51.40 Est GFR (MDRD) Af Amer 87 Est GFR (MDRD) Non-Af 72 BUN/Creatinine Ratio 20.2 H Glucose 119 H Calcium 9.5 Urine Color Straw Urine Clarity Clear Urine pH 7.0 Ur Specific Gary 1.005 Urine Protein Negative Urine Glucose (UA) Normal Urine Ketones Negative Urine Occult Blood Negative Urine Nitrite Negative Urine Bilirubin Negative Urine Urobilinogen Normal Ur Leukocyte Esterase 25 H Urine RBC 0 SEEN Urine WBC 0 SEEN Ur Squamous Epith Cells 0 SEEN Urine Bacteria 0 SEEN Urine Mucus 0 SEEN Radiography Diagnostic Testing: Clinical Impression(s) from Imaging Studies Abdomen/Pelvis CT 12/16/22 11:06 IMPRESSION: 1. Previously seen obstructing stone in the right proximal ureter is no longer present. Previously seen right hydronephrosis has resolved. 2. Redemonstration of a 3 mm calyceal stone in the midpole of the left kidney. No hydronephrosis is present. 3. Colonic diverticulosis Electronically Signed: Macho Valentine MD at 12:59 EDT Reading Location ID and State: [facility] / [place] , Service support , CT scan of the abdomen pelvis was obtained. There is no evidence of bowel obstruction, perforation, or other acute abnormality. There is no hydronephrosis. There is no hydroureter. There are no ureteral calculi noted. There is a 3 mm calculus in the calyx of the left kidney. There is also colonic diverticulosis but no evidence of diverticulitis. This was interpreted by the radiologist and was also independently reviewed by myself. Treatment and Re-Evaluation Narrative: Patient given IV fluids, Zofran, and Toradol. Patient had minimal improvement with the Toradol. Patient was given a dose of morphine. Patient was given a prescription for Percocet. Patient was instructed to use ice to the area. Patient was instructed to follow-up with her primary care physician in 3 to 5 days for reevaluation. Patient was advised she may need physical therapy for this. Patient was instructed return if worse in any way. Patient understood and was agreeable with the plan. All questions were answered. Discharge Plan Triage Chief Complaint: Back ED Provider: Ramon Castillo Dx/Rx/DC Orders Clinical Impression: Left lumbar radiculopathy, Morbid obesity with BMI of 40.0-44.9, adult Instructions: ED Back Pain (Acute or Chronic) Prescriptions: New oxycodone-acetaminophen [oxycodone-acetaminophen] 5-325 mg tablet 1 tab PO Q6H PRN PRN (Reason: Pain) 3 Days Qty: 12 0RF No Action topiramate 100 mg tablet 100 mg PO DAILY Eliquis 5 mg Tablet 5 mg PO BID 30 Days Qty: 60 0RF Hold Instructions: Resume on 03/14/21. Effexor buspirone 5 mg Tablet 5 mg PO BID metoprolol succinate 25 mg Tablet Extended Release 24 Hr 25 mg PO DAILY Primary Care Provider: Joe Carmichael Referrals: Joe Carmichael MD [Primary Care Provider] - 3-5 Days Disposition Disposition: Home, Self Care
--- NOTE | 2022-12-16 11:06 | CT_ITS ---
STUDY: CT ABDOMEN AND PELVIS WITHOUT CONTRAST REASON FOR EXAM: Female, 67 years old. Abdominal pain RADIATION DOSAGE (If Supplied By Facility): CTDIvol = ( 23.41 ) mGy, DLP = ( 1233.99 ) mGycm TECHNIQUE: Transaxial images were obtained from the dome of the diaphragm to the symphysis pubis without oral contrast, and without intravenous contrast. Sagittal and coronal images were reconstructed. Individualized dose optimization techniques were used for this CT. COMPARISON: Head CT dated March 03, 2021 FINDINGS: There are chronic interstitial fibrotic changes of the lung bases. The visualized portions of the heart are within normal limits. Normal liver parenchyma. Hypoplastic left lobe of the liver. There are surgical clips in the gallbladder fossa consistent with a prior cholecystectomy. Normal spleen. Normal pancreas. Normal bilateral adrenal glands. Previously seen obstructing stone in the right proximal ureter is no longer present. Previously seen right hydronephrosis has resolved. There are no radiopaque stones in the right kidney or visualized aspects of the ureter. Redemonstration of a 3 mm calyceal stone in the midpole of the left kidney. No hydronephrosis is present. No left ureteral stones are present. Normal visualized stomach. Normal small intestine. There are multiple colonic diverticula consistent with diverticulosis. The appendix is visualized and appears normal. No free air or free fluid or bowel dilatation is seen. There is no evidence of bowel obstruction. Normal abdominal aorta. Normal inferior vena cava. Normal retroperitoneum. Normal urinary bladder. Unremarkable uterus and adnexa. Small fat-containing (midline incisional/paraumbilical hernia. Hernia mesh material is also seen in this region. There are diffuse degenerative changes of the visualized lumbar spine. CT/Abdomen/Pelvis without Cont IMPRESSION: 1. Previously seen obstructing stone in the right proximal ureter is no longer present. Previously seen right hydronephrosis has resolved. 2. Redemonstration of a 3 mm calyceal stone in the midpole of the left kidney. No hydronephrosis is present. 3. Colonic diverticulosis Electronically Signed: Macho Valentine MD at 12:59 EDT ,
[2022-12-16] MEDS: Ketorolac 15 MG/ML Vial IV (11:41)
[2022-12-16] MEDS: 0.9% Normal Saline 1,000 ML 1000 ML IV (11:41)
[2022-12-16] MEDS: Ondansetron 4 MG/2 ML Vial IV (11:41)
[2022-12-16 11:43] LABS: Absolute Lymphocyte Count 1.32 X10^3/uL (0.83-4.51); Absolute Neutrophil Count 6.3 X10^3/uL (2.0-7.7); Basophil# 0.05 X10^3/uL; Basophil% 0.6 % (0-1); Eosinophil# 0.12 X10^3/uL; Eosinophils% 1.5 % (0-5); Hematocrit 40.7 % (37-47); Hemoglobin 13.3 g/dL (12.0-15.0); Lymphocyte # 1.32 X10^3/ul (0.83-4.51); Mean Corp Hgb Conc 32.7 g/dL (32-36); Mean Corpuscular Hgb 30.2 pg (27.0-32.0); Mean Corpuscular Volume 92.5 fL (81-99); Mean Platelet Vol. 9.8 fl (6.2-12.0); Monocyte# 0.41 X10^3/uL; NRBC Flagged by Analyzer 0 % (0-5); Neutrophil % 76.5 % (47-70); Platelet Count 306 K/mm3 (150-450); RBC Distribution Width CV 14.3 % (11.6-14.6); RBC Distribution Width SD 48.8 fl (35.1-43.9); White Blood Count 8.2 K/mm3 (4.4-11.0)
[2022-12-16 11:48] LABS: Anion Gap 6 (5-15); BUN 17 mg/dL (7-18); BUN/Creat Ratio 20.2 RATIO (10-20); Calcium,Total 9.5 mg/dL (8.5-10.1); Chloride 116 mmol/L (98-107); Creatinine, Serum 0.84 mg/dL (0.55-1.02); EST Glomerular Filtration Rate 72 mL/min (>60); Est Glom Filt Rate - Afr Amer 87 mL/min (>60); Glucose 119 mg/dL (74-106); Potassium 3.3 mmol/L (3.5-5.1); Sodium Level 143 mmol/L (136-145)
[2022-12-16 11:49] LABS: Bacteria 0 SEEN /hpf (None Seen); Mucous, Urine 0 SEEN /hpf (<or=2+); Red Blood Cells-Urine 0 SEEN /hpf (0-5); Squamous Epithelial Cells - UA 0 SEEN /hpf (5-10); White Blood Cells 0 SEEN /hpf (0-5)
[2022-12-16 11:52] LABS: Color, Urine Straw (Yellow); Glucose, Dipstick Normal (Normal); Ketone-Dipstick Negative (Negative); Leukocyte Esterase-Dipstick 25 /ul (Negative); Nitrite-Dipstick Negative (Negative); Occult Blood-Urine Negative /ul (Negative); Protein-Dipstick Negative (Negative); Specific Gravity, Urine 1.005 (1.002-1.030); Urine Bilirubin Dipstick Negative (Negative); Urine Clarity Clear (Clear); Urine Urobilinogen Normal (Normal)
[2022-12-16] MEDS: Morphine 4 MG/ML Syringe IV (14:11)
== END 2022-12-16 14:18 | disposition home or self-care (01) ==
PROVIDERS: Emergency Provider Emergency Medicine; PCP Internal Medicine; Visit Provider Emergency Medicine
DX: M54.16 Radiculopathy, lumbar region (principal); I48.91 Unspecified atrial fibrillation; E66.01 Morbid (severe) obesity due to excess calories; Z68.41 Body mass index [BMI] 40.0-44.9, adult; I10 Essential (primary) hypertension; Z86.718 Personal history of other venous thrombosis and embolism; Z86.73 Personal history of transient ischemic attack (TIA), and cerebral infarction without residual deficits; Z86.711 Personal history of pulmonary embolism; Z86.16 Personal history of COVID-19; Z79.899 Other long term (current) drug therapy; Z79.01 Long term (current) use of anticoagulants
CPT/HCPCS: 74176; 80048; 81001; 85025; 96361; 96374; 96375; 99283; J7030; A4216; J2405

== ENCOUNTER 2023-01-01 14:53 | Emergency (ER) | payer MEDICARE, SELFPAY ==
[2023-01-01 14:54] VITALS: BP 166/94; PULSE 117; RESP 18; TEMP 36.6; O2SAT 100; BMI 41.2
--- NOTE | 2023-01-01 15:53 | CT_ITS ---
EXAM: CT LEFT LOWER EXTREMITY WITHOUT INTRAVENOUS CONTRAST CLINICAL INDICATION: concern for myositis ossificans above L knee TECHNIQUE: Helically acquired images were obtained of the left lower extremity without intravenous contrast. 2-D reformats were performed by the technologist. This CT exam was performed using one or more of the following dose reduction techniques: automated exposure control, adjustment of the mA and/or kV according to patient size, and/or use of iterative reconstruction technique. This report was created using [employer] report [employer] technology. COMPARISON: None. 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 No acute fracture. No subluxation. Normal alignment. Preservation of the joint space. No sclerotic or destructive changes. SOFT TISSUES: Unremarkable. No soft tissue swelling or gas. No radiopaque foreign body. 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 No other abnormalities identified. Electronically Signed: Nasim Coppola MD at 16:59 EDT ,
--- NOTE | 2023-01-01 15:53 | EDS_ITS ---
HPI <RON Morris - Last Filed: 01/01/23 19:01> History of Present Illness Chief Complaint: Lower Extremity Injury Narrative Narrative: Patient presenting today with pain in her left thigh that she has had since 10/07/2022. She states that she has been evaluated several times in 2 different emergency departments for this pain and has not had any answers as to why she is having this pain. She has been seen by her PCP who is ordering an MRI of her ba ck but she will not have this scan done for another 2 weeks. She states she has tried to get into orthopedics but they are several weeks out. She states that before the pain began, she did fall on ice onto her left hip and back. The pain in her left thigh started not too long after this. She states that she has had ultrasounds done to rule out a DVT and they have been negative. She is on a bl ood thinner for atrial fibrillation. She denies any saddle paresthesia, bowel/bladder incontinence, fever. PFSH <RON Morris - Last Filed: 01/01/23 19:01> [facility] Medical History A-fib Anxiety Cardiology follow-up encounter Cervical radiculopathy Depression DVT (deep venous thrombosis) Essential hypertension Fall Heartburn History of diverticulitis History of edema History of irregular heartbeat Kidney stones Leg cramps Leukocytosis Non-smoker Occipital neuritis Paroxysmal atrial fibrillation Pneumonia due to COVID-19 virus Pulmonary embolism TIA (transient ischemic attack) Trigeminal neuralgia (~2000) Wears glasses Home Medications topiramate 100 mg tablet 100 mg PO DAILY 03/03/21 [History Last Taken 03/12/21 07:00 100 mg] apixaban 5 mg tablet (Eliquis) 5 mg PO BID 30 days #60 tabs 03/06/21 [Rx Last Taken Unknown] biotin 5 mg tablet mg PO 12/16/22 [History Last Taken Unknown] buspirone 5 mg tablet 5 mg PO BID 12/16/22 [History Last Taken Unknown] cholecalciferol (vitamin D3) 25 mcg (1,000 unit) tablet 50 mcg PO DAILY 12/16/22 [History Last Taken Unknown] magnesium oxide,aspartate,citr mg PO 12/16/22 [History Last Taken Unknown] metoprolol succinate 25 mg tablet,extended release 24 hr 25 mg PO DAILY 12/16/22 [History Last Taken Unknown] multivitamin 1 tab PO DAILY 12/16/22 [History Last Taken Unknown] oxycodone-acetaminophen 5 mg-325 mg tablet 1 tab PO Q6H PRN PRN Pain 3 days #12 TABLETS 12/16/22 [Rx Last Taken Unknown] venlafaxine 75 mg capsule,extended release 24 hr 75 mg PO DAILY 12/16/22 [History Last Taken Unknown] vitamin E (dl, acetate) 180 mg (400 unit) capsule 180 mg PO DAILY 12/16/22 [History Last Taken Unknown] Allergy/AdvReac Type Severity Reaction Status Date / Time No Known Allergies Allergy Verified 01/01/23 14:55 Family History Mother Lung disease Father Kidney disease Surgical History History of 3 sections History of lithotripsy (03/12/21) Hx of cholecystectomy Hx of colonoscopy Social History household members: none Smoking Status: Never smoker alcohol intake: never substance use type: does not use caffeine: Yes Type: tea ROS <RON Morris - Last Filed: 01/01/23 19:01> ROS ED Constitutional Constitutional ED: Denies chills or fever(s) Cardiovascular Cardiovascular: Denies chest pain or palpitations Respiratory/Chest Respiratory/Chest: Denies cough, dyspnea, tachypnea or wheezing Gastrointestinal Gastrointestinal: Denies abdominal pain, nausea or vomiting Musculoskeletal Musculoskeletal: Reports arthralgias and myalgias Integumentary Denies abscess, Abrasions or rash Neurologic Neurologic: Denies confusion, dizziness or paresthesias Psychiatric Psychiatric: Reports anxiety; Denies suicidal ideation or suicidal thoughts EXAM <RON Morris - Last Filed: 01/01/23 19:01> Physical Exam Const Vital Signs: 01/01/23 14:54 Temperature 97.8 F Temperature Source Temporal Pulse Rate 117 H Respiratory Rate 18 Blood Pressure 166/94 H Blood Pressure Mean 118 Pulse Ox 100 Oxygen Delivery Method Room Air Positive well nourished, well developed and no apparent distress General Appearance ED: well developed HEENT Reports normocephalic and head/scalp atraumatic Mouth ED: Yes moist mucous membranes normal Eyes PERRL and EOMs intact bilaterally Neck full ROM and supple Chest Wall inspection of chest normal Resp normal respiratory effort and clear to auscultation bilaterally Cardio regular rate and regular rhythm GI soft to palpation, non-tender, non-distended and no masses Back/Spine normal ROM and normal to inspection Extremity normal to inspection and full ROM Extremity Narrative: No signs of infection, bruising, or hematoma.? No signs of fracture or dislocation.? There is an area of tenderness just above patient's knee that does feel a little hard. Neuro oriented x3, CN's II-XII intact bilaterally, moves all extremities, no focal motor deficits and no sensory deficits noted Sensorium / Orientation: awake and alert Psych mental status grossly normal and thought process normal Skin no rashes or lesions noted and no wounds <Dr. Maxi Gilmore MD - Last Filed: 01/03/23 15:00> Physical Exam Const Vital Signs: 01/01/23 14:54 Temperature 97.8 F Temperature Source Temporal Pulse Rate 117 H Respiratory Rate 18 Blood Pressure 166/94 H Blood Pressure Mean 118 Pulse Ox 100 Oxygen Delivery Method Room Air MDM <RON Morris - Last Filed: 01/01/23 19:01> [facility] Narrative Medical decision making narrative: Patient presenting with pain in her left thigh that she has had now since October 2022. She has been evaluated in our emergency department 2 times before today and has had an x-ray of the femur, pelvis, and a CT of the abdomen and pelvis. Imaging negative for any fracture or dislocation. Patient's PCP has ordered an MRI of her back. There are no signs of infection, bruising, hematoma, or swelling to patient's left thigh. She has full range of motion in her left leg. Patient has already been worked up for DVT, she is on Eliquis and she is compliant with this, I do not feel that an ultrasound is necessary today. There is a Small area of firmness just above patient's knee on her anterior thigh. CT scan obtained to rule out myositis ossificans. 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 Her symptoms could possibly due to muscular strain from falling and the area of firmness could be due to muscle spasm as patient states she does feel her quadricep muscle spasming sometimes. When I went to tell patient her CT results she began to cry and became very upset and again yelling at me telling me that I cannot let her go home without any answer. I told her I would be referring her to orthopedics and she became very upset stating that it would take too long to get in with them. I suggested that she follow-up with her PCP to discuss physical therapy and she again became very upset with me saying that it would take too long. She asked if I would write her for double strength Percocet as the amount that she is on now is not doing enough for her pain. She showed me her pill bottle and she still has over 10 pills left from her current prescription, I told her I would not be writing her for any more of these. She then became even more upset and began to cry. After I left the room, she asked the nurse if he could ask me to write her for some Ativan. There is no indication to give patient Ativan and I will not be doing this. Patient has been given muscle relaxers, gabapentin, and narcotics for her leg pain. I have given her RICE instructions and have recommended she follow-up with Ortho and discuss physical therapy with her PCP. She will be discharged home in stable condition and is comfortable with plan. I have personally performed a face to face assessment of the patient and have reviewed the [place] Note. I performed a substantive portion of the visit including all aspects of the following. My serrato findings include: History is remarkable for anterior distal left thigh pain. Patient has an MRI scheduled to rule out back. She denies radicular pain she denies bowel bladder symptoms. She has had pain since October. She does not recall any trauma. She is on anticoagulant because of VTE. Exam is remarkable for blood pressure 166/94. Pulse of 117. Patient has a firm nodule lateral distal left quadricep region. There is multiple scars that are well-healed over the knee. The patella is not ballotable. There is no effusion. She has full active range of motion. There is no concern for vascular compromise. Medical Decision Making concern patient may have myositis ossificans. Will o btain CT to look for evidence of calcification. Patient's been treated with pain meds without improvement. 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 No other abnormalities identified. Electronically Signed: Nasim Coppola MD at 16:59 EDT , CT read and interpreted by attending ED physician as well as radiologist. <Dr. Maxi Gilmore MD - Last Filed: 01/03/23 15:00> [facility] Narrative Medical decision making narrative: I have personally performed a face to face assessment of the patient and have reviewed the [place] Note. I performed a substantive portion of the visit including all aspects of the following. My serrato findings include: History is remarkable for anterior distal left thigh pain. Patient has an MRI scheduled to rule out back. She denies radicular pain she denies bowel bladder symptoms. She has had pain since October. She does not recall any trauma. She is on anticoagulant because of VTE. Exam is remarkable for blood pressure 166/94. Pulse of 117. Patient has a firm nodule lateral distal left quadricep region. There is multiple scars that are well-healed over the knee. The patella is not ballotable. There is no effusion. She has full active range of motion. There is no concern for vascular compromise. Medical Decision Making concern patient may have myositis ossificans. Will obtain CT to look for evidence of calcification. Patient's been treated with pain meds without improvement. 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 No other abnormalities identified. Electronically Signed: Nasim Coppola MD at 16:59 EDT , Discharge Plan Triage Chief Complaint: Lower Extremity Injury ED Midlevel Provider: Marialuisa Boyd ED Provider: Maxi Gilmore Dx/Rx/DC Orders Clinical Impression: Left leg pain, Sinus tachycardia, Essential hypertension, Paroxysmal atrial fibrillation, Anticoagulant long-term use Instructions: ED Muscle Strain, Extremity Prescriptions: No Action venlafaxine 75 mg capsule,extended release 24hr 75 mg PO DAILY magnesium oxide,aspartate,citr 400 mg magnesium capsule PO cholecalciferol (vitamin D3) 25 mcg (1,000 unit) tablet 50 mcg PO DAILY multivitamin Tablet 1 tab PO DAILY vitamin E (dl, acetate) 180 mg (400 unit) capsule 180 mg PO DAILY biotin 5 mg tablet PO topiramate 100 mg tablet 100 mg PO DAILY Eliquis 5 mg Tablet 5 mg PO BID 30 Days Qty: 60 0RF Hold Instructions: Resume on 03/14/21. buspirone 5 mg Tablet 5 mg PO BID metoprolol succinate 25 mg Tablet Extended Release 24 Hr 25 mg PO DAILY oxycodone-acetaminophen [oxycodone-acetaminophen] 5-325 mg tablet 1 tab PO Q6H PRN PRN (Reason: Pain) 3 Days Qty: 12 0RF Primary Care Provider: Joe Carmichael Referrals: Chaim Suh DO [Med Staff - Active Staff] - 3-5 Days Joe Carmichael MD [Primary Care Provider] - Activity Restrictions/Additional Instructions: This follow-up with the orthopedic doctor. Disposition Disposition: Home, Self Care Discharge Date/Time: 01/01/23 17:52
[2023-01-01] MEDS: Morphine 4 MG/ML Syringe IM (16:23)
== END 2023-01-01 17:52 | disposition home or self-care (01) ==
PROVIDERS: Emergency Provider Emergency Medicine; PCP Internal Medicine; Visit Provider Emergency Medicine
DX: M79.652 Pain in left thigh (principal); I48.0 Paroxysmal atrial fibrillation; R00.0 Tachycardia, unspecified; I10 Essential (primary) hypertension; Z86.718 Personal history of other venous thrombosis and embolism; Z86.73 Personal history of transient ischemic attack (TIA), and cerebral infarction without residual deficits; Z86.711 Personal history of pulmonary embolism; Z79.01 Long term (current) use of anticoagulants
CPT/HCPCS: 73700; 96372; 99282

== ENCOUNTER → 2023-01-20 | Outpatient (CLI) | payer MEDICARE, SELFPAY ==
--- NOTE | 2023-01-20 18:15 | MRI_ITS ---
STUDY: MRI LUMBAR SPINE WITHOUT CONTRAST REASON FOR EXAM: Female, 67 years old. Severe left thigh and leg pain. TECHNIQUE: Standardized fat and water weighted pulse sequences were obtained in the sagittal and axial planes. COMPARISON: CT abdomen and pelvis without contrast 12/16/2022. FINDINGS: T10-T11 and T11-T12: (Sagittal only). Normal endplates. Normal disc height and morphology. No ventral extradural defects. Normal central canal and bilateral intervertebral neural foramina. Left T11 benign vertebral body hemangioma. T12-L1: (Sagittal only). Normal endplates. Normal disc height, hydration and morphology. Normal central canal and bilateral intervertebral neural foramina. Normal lumbar lordosis. There is no substantial scoliosis. Normal conus medullaris that terminates at the T12-L1 disc space level. L1-2: Normal endplates. Normal disc height with minimal ventral extradural defect due to posterior bulging annulus. Normal facet joints. Normal central canal and bilateral lateral recesses. Normal bilateral intervertebral neural foramina. L2-3: Minimal old anterior wedge compression fracture of the upper L3 vertebral body. Mild Modic type I and type III degenerative vertebral marrow changes underneath the vertebral endplates. Mild disc space height narrowing. Large left posterior paramedian and caudal disc extrusion causing obliteration of the left lateral recess and displacement of the left L3 nerve root sleeve. Moderately pronounced central canal stenosis with an AP canal diameter of 5 mm. Normal right lateral recess. Normal facet joints. Mild stenosis of the bilateral intervertebral neural foramina. L3-4: Mild Modic type I and type II degenerative changes of the vertebral marrow underneath the vertebral endplates. Pronounced disc space height narrowing, increasing towards the right side. Mild ventral extradural defect due to posterior bulging annulus. Mild asymmetric degenerative facet arthropathy. Moderately pronounced central canal stenosis with an AP canal diameter of 6 mm. Normal bilateral lateral recesses. Moderately pronounced stenosis of the bilateral intervertebral neural foramina. L4-5: Normal endplates. Normal disc height. Minimal degenerative anterolisthesis of L4 on L5. Moderately pronounced bilateral degenerative facet arthropathy. Mild central canal stenosis with an AP canal diameter of 9 mm. Normal bilateral lateral recesses. Mild stenosis of the right intervertebral neural foramen. Normal left intervertebral neural foramen. L5-S1: Moderate type II degenerative vertebral marrow fat infiltration underneath the vertebral endplates. Moderate pronounced disc space height narrowing. Mild asymmetric degenerative facet arthropathy. Mild central canal stenosis with an AP canal diameter of 9.4 mm. Normal bilateral lateral recesses. Moderately pronounced stenosis of the right intervertebral neural foramen with suspicious impingement of the right L5 nerve. Mild stenosis of the left intervertebral neural foramen. Normal visualized sacral ala. Normal visualized paraspinous soft tissue structures. MRI/Spine Lumbar (Routine) IMPRESSION: 1. Large left L2-L3 posterior paramedian and caudal disc extrusion causing obliteration of the left lateral recess, displacement of the left L3 nerve root sleeve and moderately pronounced central canal stenosis with an AP canal diameter of 5 mm. 2. Moderately pronounced central canal stenosis at L3-L4 disc space level with an AP canal diameter of 6 mm, small posterior bulging annulus and moderately pronounced stenosis of the bilateral L3-L4 intervertebral neural foramen. 3. Mild central canal stenosis at L4-L5 disc space level with an AP canal diameter of 9 mm, minimal degenerative anterolisthesis of L4 on L5, moderately pronounced bilateral degenerative facet arthropathy and mild stenosis of the right intervertebral neural foramen. 4. Moderately pronounced stenosis of the right L5-S1 intervertebral neural foramen with suspicious minimal impingement of the right L5 nerve and mild central canal stenosis with an AP canal diameter of 9.4 mm. Electronically Signed: Guillermo Dunn MD at 16:12 EDT ,
== END | disposition home or self-care (01) ==
PROVIDERS: PCP Internal Medicine; Visit Provider Internal Medicine
DX: M54.16 Radiculopathy, lumbar region (principal)
CPT/HCPCS: 72148

== ENCOUNTER → 2023-01-26 | Outpatient (CLI) | payer MEDICARE, SELFPAY ==
--- NOTE | 2023-01-26 11:07 | ECHOD_ITS ---
Reason For Study: ATRIAL FIB-FLUTTER Procedure This was a 2D Doppler, Color Flow transthoracic echocardiogram. Exam performed in department. Left Ventricle Normal LV size. Left ventricular systolic function is normal. No regional wall motion abnormalities noted. Right Ventricle Normal RV size. Normal systolic function. Atria Normal left atrium. Normal right atrium. Mitral Valve Normal mitral valve. Tricuspid Valve Normal tricuspid valve. Mild tricuspid valve insufficiency. Pulmonary artery systolic pressure is 34 mmHg. Aortic Valve Normal aortic valve. Pulmonic Valve Normal pulmonic valve. Great Vessels Normal aortic root. The pulmonary artery is normal size. Normal inferior vena cava. Pericardium/Pleural No pericardial effusion. MMode/2D Measurements & Calculations LVIDd: 4.5 cm IVSd: 1.0 cm Ao root diam: 3.1 cm LVIDs: 3.2 cm LVPWd: 0.99 cm RVDd: 3.1 cm FS: 28.6 % LAV(MOD-bp): 54.7 ml LVAd ap4: 27.0 cm2 SV(MOD-sp4): 46.2 ml LAV(MOD-bp) Indexed: 27.0 ml/m2 LVLd ap4: 7.7 cm LAV(MOD-sp2): 49.9 ml EDV(MOD-sp4): 79.5 ml LAV(MOD-sp4): 52.6 ml EDV(sp4-el): 80.7 ml LVAs ap4: 15.8 cm2 LVLs ap4: 6.4 cm ESV(MOD-sp4): 33.4 ml ESV(sp4-el): 33.0 ml EF(MOD-sp4): 58.0 % EF(sp4-el): 59.1 % SV(sp4-el): 47.7 ml LA A4 area: 20.5 cm2 LA dimension(2D): 3.9 cm RA A4 area: 16.3 cm2 Doppler Measurements & Calculations MV E max troy: 97.1 cm/sec Ao V2 max: 146.2 cm/sec LV V1 max: 88.2 cm/sec Ao max P.6 mmHg LV V1 max P.1 mmHg PA V2 max: 87.1 cm/sec TR max troy: 267.4 cm/sec TR max P.6 mmHg ECHO/Echo Complete Interpretation Summary Normal LV size. Left ventricular systolic function is normal. Mild tricuspid valve insufficiency. Pulmonary artery systolic pressure is 34 mmHg. Ordering Physician: Izaiah Walter Referring Physician: CLAY SANCHEZ Performed By: Erika Ramos RDCS
== END | disposition home or self-care (01) ==
PROVIDERS: PCP Internal Medicine; Referring Provider Internal Medicine Cardiovascular Disease; Visit Provider Internal Medicine Cardiovascular Disease
DX: I48.0 Paroxysmal atrial fibrillation (principal); I10 Essential (primary) hypertension
CPT/HCPCS: 93306

== ENCOUNTER 2023-02-05 15:08 | Inpatient (IN) | payer MEDICARE, SELFPAY ==
[2023-02-05] VITALS (10 sets, daily range): BP systolic 145–182; BP diastolic 76–112; PULSE 74–105; RESP 16–18; TEMP 36.5–36.6; O2SAT 97–100; BMI 42.7; BMI 42.9
--- NOTE | 2023-02-05 15:30 | EKG12_ITS ---
Test Reason : Blood Pressure : / mmHG Vent. Rate : 107 BPM Atrial Rate : 374 BPM P-R Int : 000 ms QRS Dur : 078 ms QT Int : 378 ms P-R-T Axes : 000 -12 -35 degrees QTc Int : 504 ms Atrial flutter with variable A-V block Low voltage QRS Nonspecific ST and T wave abnormality Abnormal ECG Confirmed by DELLA CM, RAYNE ([id number]), editor managing newspaper GRAY RICE ([id number]) on 02/07/2023 8:14:06 AM Referred By: MEDHAT Confirmed By:RAYNE HULL MD
--- NOTE | 2023-02-05 15:35 | ED.VIS.CHEST ---
HPI History of Present Illness Chief Complaint: Chest Pain Informant: patient Onset/Context/Timing Onset: Yesterday Timing: Intermittent Quality: Positive for Aching Location: Left Parasternal Current Severity: Gone Maximum Severity: Mild Narrative Narrative: Patient present secondary to 2 separate complaints. She presents with chest pressure that started yesterday after taking a shower. She describes it as an aching sensation in the left lower parasternal area. She states pain was pretty constant last night but was better this morning. After taking a bath today she noted pain was present only with taking a deep breath. Patient also presents with hematuria that started last evening. She denies dysuria or urinary frequency. She has chronic back pain secondary to herniated disc but has not noted any significant change in her back pain. She does have a history of kidney stones. [facility] Medical History A-fib Anxiety Cardiology follow-up encounter Cervical radiculopathy Depression DVT (deep venous thrombosis) Essential hypertension Fall Heartburn History of diverticulitis History of edema History of irregular heartbeat Kidney stones Leg cramps Leukocytosis Non-smoker Occipital neuritis Paroxysmal atrial fibrillation Pneumonia due to COVID-19 virus Pulmonary embolism TIA (transient ischemic attack) Trigeminal neuralgia (~2000) Wears glasses Home Medications apixaban 5 mg tablet (Eliquis) 5 mg PO BID 30 days #60 tabs 03/06/21 [Rx Last Taken Unknown] biotin 5 mg tablet mg PO 12/16/22 [History Last Taken Unknown] buspirone 5 mg tablet 5 mg PO BID 12/16/22 [History Last Taken Unknown] cholecalciferol (vitamin D3) 25 mcg (1,000 unit) tablet 50 mcg PO DAILY 12/16/22 [History Last Taken Unknown] magnesium oxide,aspartate,citr mg PO 12/16/22 [History Last Taken Unknown] metoprolol succinate 25 mg tablet,extended release 24 hr 25 mg PO DAILY 12/16/22 [History Last Taken Unknown] multivitamin 1 tab PO DAILY 12/16/22 [History Last Taken Unknown] oxycodone-acetaminophen 5 mg-325 mg tablet 1 tab PO Q6H PRN PRN Pain 3 days #12 TABLETS 12/16/22 [Rx Last Taken Unknown] venlafaxine 75 mg capsule,extended release 24 hr 75 mg PO DAILY 12/16/22 [History Last Taken Unknown] vitamin E (dl, acetate) 180 mg (400 unit) capsule 180 mg PO DAILY 12/16/22 [History Last Taken Unknown] gabapentin 300 mg capsule 300 mg PO BID 01/04/23 [History Last Taken Unknown] Allergy/AdvReac Type Severity Reaction Status Date / Time No Known Allergies Allergy Verified 02/05/23 15:11 Family History Mother Lung disease Father Kidney disease Surgical History History of 3 sections History of lithotripsy (03/12/21) Hx of cholecystectomy Hx of colonoscopy Social History household members: none Smoking Status: Never smoker alcohol intake: never substance use type: does not use caffeine: Yes Type: tea ROS ROS ED Constitutional Constitutional ED: Denies chills or fever(s) Eyes Eyes: Denies change in vision or discharge from eye(s) ENT ENT ED: Denies discharge from eye(s), rhinorrhea or sore throat Cardiovascular Cardiovascular: Reports chest pain; Denies palpitations Respiratory/Chest Respiratory/Chest: Denies cough or dyspnea Gastrointestinal Gastrointestinal: Denies abdominal pain, nausea or vomiting Genitourinary Genitourinary ED: Reports hematuria; Denies dysuria Musculoskeletal Musculoskeletal: Denies back pain or extremity pain Integumentary Denies Abrasions or rash Neurologic Neurologic: Denies headache(s) or weakness Psychiatric Psychiatric: Denies anxiety or depression Allergic/Immunologic Allergic/Immunologic ED: Denies lip swelling or urticaria EXAM Physical Exam Const Vital Signs: 02/05/23 15:09 02/05/23 15:30 02/05/23 15:30 Temperature 97.9 F Temperature Source Temporal Pulse Rate 105 H 98 Respiratory Rate 18 16 Respiratory Effort Blood Pressure 166/84 H 160/78 H Blood Pressure Mean 111 105 Pulse Ox 98 100 Oxygen Delivery Method Room Air Room Air Room Air 02/05/23 15:30 02/05/23 16:08 02/05/23 17:00 Temperature Temperature Source Pulse Rate 78 78 Respiratory Rate 16 16 Respiratory Effort Normal Blood Pressure 159/78 H 145/76 H Blood Pressure Mean 105 99 Pulse Ox 97 100 Oxygen Delivery Method Room Air Room Air 02/05/23 18:18 Temperature Temperature Source Pulse Rate 98 Respiratory Rate 16 Respiratory Effort Blood Pressure 155/78 H Blood Pressure Mean 103 Pulse Ox 98 Oxygen Delivery Method Room Air Positive well nourished and well developed General Appearance ED: well developed HEENT Reports normocephalic and head/scalp atraumatic Eyes PERRL and EOMs intact bilaterally Neck supple Chest Wall inspection of chest normal and palpation of chest normal Resp normal respiratory effort and clear to auscultation bilaterally Cardio Rhythm: abnormal rhythm irregularly irregular GI normal to inspection, nondistended, normoactive bowel sounds Palpation: soft Extremity normal to inspection Neuro oriented x3 and no sensory deficits noted Sensorium / Orientation: alert Motor Exam: strength 5/5 throughout Psych mental status grossly normal Skin no rashes or lesions noted MDM MDM MDM Narrative Medical decision making narrative: Patient placed on monitor tech. Patient given aspirin. EKG obtained to evaluate for cardiac arrhythmia/ischemia. Chest x-ray obtained to evaluate for acute lung pathology, cardiac size, or mediastinal abnormality. Labwork obtained to evaluate for leukocytosis, anemia, and electrolyte derangement. History & Record Review Discussion w/independent historian: Patient Additional record(s) reviewed:: Prior outpatient record Lab Data Attestation: I reviewed the patient's lab results. Labs: Laboratory Results - last 24 hr 02/05/23 02/05/23 02/05/23 15:25 15:25 15:25 WBC 7.7 RBC 4.61 Hgb 14.0 Hct 43.6 MCV 94.6 MCH 30.4 MCHC 32.1 RDW Std Deviation 47.8 H RDW Coeff of Yun 13.8 Plt Count 332 MPV 9.8 Immature Gran % (Auto) 0.300 Neut % (Auto) 61.9 Lymph % (Auto) 25.5 [place] % (Auto) 8.0 Eos % (Auto) 3.3 Baso % (Auto) 1.0 Absolute Neuts (auto) 4.7 Absolute Lymphs (auto) 1.95 Nucleated RBC % 0 D-Dimer Quant (PE/DVT) 1.20 H* Sodium 143 Potassium 3.8 Chloride 115 H Carbon Dioxide 21.0 Anion Gap 7 BUN 26 H Creatinine 1.02 Estim Creat Clear Calc 42.33 Est GFR (MDRD) Af Amer 69 Est GFR (MDRD) Non-Af 57 L BUN/Creatinine Ratio 25.5 H Glucose 112 H Calcium 9.3 Troponin I High Sens 5 Urine Color Urine Clarity Urine pH Ur Specific [place] Urine Protein Urine Glucose (UA) Urine Ketones Urine Occult Blood Urine Nitrite Urine Bilirubin Urine Urobilinogen Ur Leukocyte Esterase Urine RBC Urine WBC Ur Squamous Epith Cells Calcium Oxalate Crystal Urine Bacteria Urine Mucus 02/05/23 15:46 WBC RBC Hgb Hct MCV MCH MCHC RDW Std Deviation RDW Coeff of Yun Plt Count MPV Immature Gran % (Auto) Neut % (Auto) Lymph % (Auto) [place] % (Auto) Eos % (Auto) Baso % (Auto) Absolute Neuts (auto) Absolute Lymphs (auto) Nucleated RBC % D-Dimer Quant (PE/DVT) Sodium Potassium Chloride Carbon Dioxide Anion Gap BUN Creatinine Estim Creat Clear Calc Est GFR (MDRD) Af Amer Est GFR (MDRD) Non-Af BUN/Creatinine Ratio Glucose Calcium Troponin I High Sens Urine Color Yellow Urine Clarity Clear Urine pH 6.5 Ur Specific [place] 1.020 Urine Protein 100 H Urine Glucose (UA) Normal Urine Ketones 5 H Urine Occult Blood 250 H Urine Nitrite Positive H Urine Bilirubin 1 H Urine Urobilinogen 1 H Ur Leukocyte Esterase 100 H Urine RBC > 100 SEEN Urine WBC 50-100 SEEN Ur Squamous Epith Cells 0-5 SEEN Calcium Oxalate Crystal 1+ Urine Bacteria 0 SEEN Urine Mucus 0 SEEN Radiography Chest X-Ray - ED: 1 View, Read by ED Physician, Chronic Changes and No Infiltrates Diagnostic Testing: Clinical Impression(s) from Imaging Studies Chest X-Ray 02/05/23 15:50 IMPRESSION: No radiographic evidence of acute cardiopulmonary disease. Electronically Signed: Russell Amato MD at 16:19 EDT , Chest CTA 02/05/23 16:21 IMPRESSION: Normal CTA chest examination, without a demonstrated pulmonary embolism or arterial dissection. Cardiomegaly with probable pulmonary edema. Infection including atypical or viral pneumonia should also be considered in the differential. Electronically Signed: Russell Amato MD at 18:03 EDT , Abdomen/Pelvis CT 02/05/23 16:22 IMPRESSION: Partially obstructing 6 mm proximal right ureteral calculus. Electronically Signed: Russell Amato MD at 17:51 EDT , Treatment and Re-Evaluation :: EKG is atrial flutter with variable block with a ventricular rate of 107. No significant ST change. CBC reveals normal white count. Chemistry studies unremarkable with normal renal function. D-dimer is elevated at 1.2. Troponin is normal at 5. Urinalysis reveals greater than 100 RBCs with 50-100 white cells with positive nitrites. Urine is sent for culture and she is given a dose of Bactrim. Chest x-ray per my interpretation feels chronic changes with no acute findings. Radiology interpretation is reviewed and agrees. Given her elevated D-dimer CTA of the chest is obtained. This reveals no evidence of PE. CT of the flank reveals a 6 mm proximal right ureter stone. Test results are discussed with the patient. I spoke with Dr. Boogie as she has seen him in the past for kidney stones. He would prefer to have the patient admitted tonight for stent placement. He is aware the patient is on Eliquis and is okay with this plan. Floor is to call Dr. Boogie for orders. Discharge Plan Triage Chief Complaint: Chest Pain ED Provider: Celestina Yarbrough Dx/Rx/DC Orders Clinical Impression: Kidney stone, UTI (urinary tract infection), Atypical chest pain Prescriptions: No Action venlafaxine 75 mg capsule,extended release 24hr 75 mg PO DAILY magnesium oxide,aspartate,citr 400 mg magnesium capsule PO cholecalciferol (vitamin D3) 25 mcg (1,000 unit) tablet 50 mcg PO DAILY multivitamin Tablet 1 tab PO DAILY vitamin E (dl, acetate) 180 mg (400 unit) capsule 180 mg PO DAILY biotin 5 mg tablet PO gabapentin 300 mg capsule 300 mg PO BID Eliquis 5 mg Tablet 5 mg PO BID 30 Days Qty: 60 0RF Hold Instructions: Resume on 03/14/21. buspirone 5 mg Tablet 5 mg PO BID metoprolol succinate 25 mg Tablet Extended Release 24 Hr 25 mg PO DAILY oxycodone-acetaminophen [oxycodone-acetaminophen] 5-325 mg tablet 1 tab PO Q6H PRN PRN (Reason: Pain) 3 Days Qty: 12 0RF Primary Care Provider: Joe Carmichael Referrals: Joe Carmichael MD [Primary Care Provider] - Disposition Disposition: Acute Care Hospital [facility]
[2023-02-05] MEDS: Aspirin 81 MG TAB.CHEW 324 MG PO (15:39)
[2023-02-05 15:41] LABS: Absolute Lymphocyte Count 1.95 X10^3/uL (0.83-4.51); Absolute Neutrophil Count 4.7 X10^3/uL (2.0-7.7); Basophil# 0.08 X10^3/uL; Eosinophil# 0.25 X10^3/uL; Eosinophils% 3.3 % (0-5); Hematocrit 43.6 % (37-47); Lymphocyte # 1.95 X10^3/ul (0.83-4.51); Lymphocyte % 25.5 % (19-41); Mean Corp Hgb Conc 32.1 g/dL (32-36); Mean Corpuscular Hgb 30.4 pg (27.0-32.0); Mean Corpuscular Volume 94.6 fL (81-99); Mean Platelet Vol. 9.8 fl (6.2-12.0); Monocyte# 0.61 X10^3/uL; NRBC Flagged by Analyzer 0 % (0-5); Neutrophil # 4.74 X10^3/uL (2.7-7.7); Neutrophil % 61.9 % (47-70); Platelet Count 332 K/mm3 (150-450); RBC Distribution Width CV 13.8 % (11.6-14.6); RBC Distribution Width SD 47.8 fl (35.1-43.9); Red Blood Count 4.61 M/mm3 (4.2-5.4); White Blood Count 7.7 K/mm3 (4.4-11.0)
[2023-02-05 15:50] LABS: Bacteria 0 SEEN /hpf (None Seen); Mucous, Urine 0 SEEN /hpf (<or=2+)
--- NOTE | 2023-02-05 15:50 | RAD_ITS ---
INDICATION: chest pain EXAMINATION/TECHNIQUE: X-RAY - portable upright AP chest x-ray COMPARISON: 01/13/2016 FINDINGS: LINES/DEVICES: None. LUNGS: No consolidation, edema or effusion. No pneumothorax. MEDIASTINUM AND CARDIOVASCULAR STRUCTURES: Cardiac silhouette not enlarged. Central airways and mediastinal contour are unremarkable. BONES AND SOFT TISSUES: No acute changes. RAD/Chest 1 View (Portable) IMPRESSION: No radiographic evidence of acute cardiopulmonary disease. Electronically Signed: Russell Amato MD at 16:19 EDT ,
[2023-02-05 16:05] LABS: Glucose, Dipstick Normal (Normal); Ketone-Dipstick 5 mg/dl (Negative); Leukocyte Esterase-Dipstick 100 /ul (Negative); Nitrite-Dipstick Positive (Negative); Occult Blood-Urine 250 /ul (Negative); Protein-Dipstick 100 mg/dl (Negative); Urine Urobilinogen 1 mg/dl (Normal); Urine pH 6.5 (5.0 - 8.0)
[2023-02-05 16:07] LABS: Urine Bilirubin Dipstick 1 mg/dL (Negative)
[2023-02-05 16:18] LABS: Red Blood Cells-Urine > 100 SEEN /hpf (0-5)
[2023-02-05 16:19] LABS: Anion Gap 7 (5-15); BUN 26 mg/dL (7-18); BUN/Creat Ratio 25.5 RATIO (10-20); Calcium,Total 9.3 mg/dL (8.5-10.1); Chloride 115 mmol/L (98-107); Creatinine, Serum 1.02 mg/dL (0.55-1.02); EST Glomerular Filtration Rate 57 mL/min (>60); Est Glom Filt Rate - Afr Amer 69 mL/min (>60); Estimated Creatinine Clearance 42.33 ml/min; Glucose 112 mg/dL (74-106); Potassium 3.8 mmol/L (3.5-5.1); Sodium Level 143 mmol/L (136-145); Troponin-I HS (w/2H Reflex) 5 pg/mL (3.0-54.0)
--- NOTE | 2023-02-05 16:21 | CT_ITS ---
STUDY: CTA CHEST REASON FOR EXAM: Female, 67 years old. cp, elevated d-dimer RADIATION DOSAGE (If Supplied By Facility): CTDIvol = ( 22.45 ) mGy, DLP = ( 1133.85 ) mGycm TECHNIQUE: The examination was performed with the intravenous administration of 100mL Isovue-370. Post-processing of the angiographic images was performed, with multiplanar reformation and 3D reconstruction. Individualized dose optimization techniques were used for this CT. COMPARISON: None. FINDINGS: Multiple breathing motion artifacts in the bilateral lower lobes. No definite filling defects in the pulmonary arteries. 3.5 cm ectasia ascending aorta, descending aorta normal caliber. There is no demonstrated aortic dissection. Mild cardiomegaly. No pericardial effusion. Normal mediastinum. Normal hilar regions. Bilateral groundglass opacities with peripheral septal prominence. No consolidations or pleural effusions. No acute or aggressive osseous abnormality. No acute findings in the upper abdomen. Cholecystectomy changes. CT/CTA Chest W/WO Contrast IMPRESSION: Normal CTA chest examination, without a demonstrated pulmonary embolism or arterial dissection. Cardiomegaly with probable pulmonary edema. Infection including atypical or viral pneumonia should also be considered in the differential. Electronically Signed: Russell Amato MD at 18:03 EDT ,
--- NOTE | 2023-02-05 16:22 | CT_ITS ---
INDICATION: Hematuria, history of kidney stones EXAMINATION: CT ABDOMEN AND PELVIS WITHOUT CONTRAST - CT Abdomen And Pelvis W/O Contrast Injection TECHNIQUE: Helically acquired images were obtained of the abdomen and pelvis without oral or IV contrast. A radiation dose optimization technique was used for this scan. IV Contrast dosage and agent: None. Oral contrast: None. COMPARISON: 12/16/2022 FINDINGS: LOWER CHEST: Bilateral dependent changes. No cardiomegaly or pericardial effusion. LIVER: Homogeneous. No focal mass. GALLBLADDER AND BILIARY TREE: Cholecystectomy. No intra- or extrahepatic biliary ductal dilation. PANCREAS: No focal cystic or solid mass. SPLEEN: Normal size without focal cystic or solid mass. ADRENAL GLANDS: No nodules. KIDNEYS AND URETERS: Stable nonobstructing left renal calculus. Mild right hydronephrosis with 6 mm calculus at the proximal right ureter near the UPJ. PERITONEUM: No ascites or free air. BOWEL: Normal appendix. No stomach or bowel distension. No focal inflammatory change. LYMPH NODES: No enlarged mesenteric or retroperitoneal lymph nodes. VESSELS: Aorta is non-dilated. URINARY BLADDER: Unremarkable. REPRODUCTIVE ORGANS: No pelvic masses. ABDOMINAL WALL: Fat-containing paraumbilical ventral hernia. BONES: No acute or aggressive abnormality. CT/Abdomen/Pelvis without Cont IMPRESSION: Partially obstructing 6 mm proximal right ureteral calculus. Electronically Signed: Russell Amato MD at 17:51 EDT ,
[2023-02-05 16:24] LABS: Squamous Epithelial Cells - UA 0-5 SEEN /hpf (5-10); White Blood Cells 50-100 SEEN /hpf (0-5)
[2023-02-05 16:25] LABS: Calcium Oxalate Crystals Ur 1+ /hpf (<or=2+)
[2023-02-05 17:37] LABS: Reflex Troponin-HS? (from REC) Y
[2023-02-05 18:29] LABS: Color, Urine Brown (Yellow)
[2023-02-05 18:30] LABS: Urine Clarity Clear (Clear)
[2023-02-05] MEDS: Smz/Tmp Ds Tablet 1 TABLET PO (18:33)
[2023-02-05 19:43] LABS: Troponin-I HS 8 pg/mL (3.0-54.0)
[2023-02-05] MEDS: Metoprolol(XL)Succ 25 MG Tablet PO (20:00)
--- NOTE | 2023-02-05 20:22 | PCM.HP.STD ---
HPI - General General Date of Admission: 02/05/23 HPI Narrative JOSLYN ABRAHAM, is a 67 F who presents to the ER with a 6 mm stone in the mid right ureter and a UTI admitted to treat UTI and place a stent for relief of obstruction. On Eliquis currently. [facility] Medical History A-fib Anxiety Cardiology follow-up encounter Cervical radiculopathy Depression DVT (deep venous thrombosis) Essential hypertension Fall Heartburn History of diverticulitis History of edema History of irregular heartbeat Kidney stones Leg cramps Leukocytosis Non-smoker Occipital neuritis Paroxysmal atrial fibrillation Pneumonia due to COVID-19 virus Pulmonary embolism TIA (transient ischemic attack) Trigeminal neuralgia (~2000) Wears glasses Home Medications apixaban 5 mg tablet (Eliquis) 5 mg PO BID 30 days #60 tabs 03/06/21 [Rx Last Taken 02/05/23] biotin 5 mg tablet 5 mg PO DAILY SUPPLEMENT 12/16/22 [History Last Taken 02/05/23] buspirone 5 mg tablet 5 mg PO BID 12/16/22 [History Last Taken 02/05/23] cholecalciferol (vitamin D3) 25 mcg (1,000 unit) tablet 50 mcg PO DAILY 12/16/22 [History Last Taken Unknown] metoprolol succinate 25 mg tablet,extended release 24 hr 25 mg PO BID 12/16/22 [History Last Taken 02/05/23] multivitamin 1 tab PO DAILY 12/16/22 [History Last Taken 02/05/23] venlafaxine 75 mg capsule,extended release 24 hr 75 mg PO DAILY 12/16/22 [History Last Taken 02/05/23] vitamin E (dl, acetate) 180 mg (400 unit) capsule 180 mg PO DAILY 12/16/22 [History Last Taken 02/05/23] gabapentin 300 mg capsule 600 mg PO DAILY 01/04/23 [History Last Taken 02/05/23] albuterol sulfate 90 mcg/actuation aerosol inhaler 1 inh inhalation Q6H SOB 02/05/23 [History Last Taken 02/05/23] gabapentin 300 mg capsule 900 mg PO QHS 02/05/23 [History Last Taken 02/04/23] topiramate 50 mg tablet 50 mg PO DAILY . 02/05/23 [History Last Taken 02/05/23] Allergy/AdvReac Type Severity Reaction Status Date / Time No Known Allergies Allergy Verified 02/05/23 15:11 Family History Mother Lung disease Father Kidney disease Surgical History History of 3 sections History of lithotripsy (03/12/21) Hx of cholecystectomy Hx of colonoscopy Social History household members: none Smoking Status: Never smoker alcohol intake: never substance use type: does not use caffeine: Yes Type: tea ROS Constitutional Constitutional: Denies chills, fever(s) or malaise Eyes Eyes: Denies blurry vision or change in vision ENT HEENT: Reports none Cardiovascular Cardiovascular: Denies chest pain or palpitations Respiratory/Chest Respiratory/Chest: Denies cough or shortness of breath with exertion Gastrointestinal Gastrointestinal: Denies abdominal pain, constipation or diarrhea Musculoskeletal Musculoskeletal: Denies back pain, joint stiffness or joint swelling Integumentary Integumentary: Denies dry skin, jaundice, lesions or rash Neurologic Neurologic: Denies confusion, syncope or weakness Psychiatric Psychiatric: Reports none; Denies anxiety or depression Endocrine Endocrinology: Denies excessive sweating, fatigue or flushing Hematologic/Lymphatic Hematologic/Lymphatic: Denies anemia, easy bleeding or easy bruising Vital Signs Vital Signs Vital Signs: 02/05/23 15:09 02/05/23 15:30 02/05/23 15:30 Temperature 97.9 F Temperature Source Temporal Pulse Rate 105 H 98 Respiratory Rate 18 16 Respiratory Effort Blood Pressure 166/84 H 160/78 H Blood Pressure Mean 111 105 Blood Pressure Source Blood Pressure Position Blood Pressure Location Pulse Ox 98 100 Oxygen Delivery Method Room Air Room Air Room Air 02/05/23 15:30 02/05/23 16:08 02/05/23 17:00 Temperature Temperature Source Pulse Rate 78 78 Respiratory Rate 16 16 Respiratory Effort Normal Blood Pressure 159/78 H 145/76 H Blood Pressure Mean 105 99 Blood Pressure Source Blood Pressure Position Blood Pressure Location Pulse Ox 97 100 Oxygen Delivery Method Room Air Room Air 02/05/23 18:18 02/05/23 18:40 02/05/23 19:42 Temperature 97.8 F 97.7 F L Temperature Source Temporal Oral Pulse Rate 98 78 79 Respiratory Rate 16 16 18 Respiratory Effort Blood Pressure 155/78 H 145/78 H 162/109 H Blood Pressure Mean 103 100 126 Blood Pressure Source Monitor Blood Pressure Position Semi-Fowlers Blood Pressure Location Left Arm Pulse Ox 98 99 100 Oxygen Delivery Method Room Air Room Air Room Air Weight Weight: 106.5 kg Body Mass Index (BMI) 42.9 Physical Exam Const alert and oriented x3 General Appearance: cooperative HEENT normocephalic, head/scalp atraumatic, EAC's normal and TM's normal bilaterally Eyes PERRL and EOMs intact bilaterally Pupil: sluggish Neck no lymphadenopathy, supple and no JVD General: trachea midline Lymph Lymphatic: no lymphadenopathy noted, lymphedema and lymphadenopathy Resp normal respiratory effort, normal air movement and clear to auscultation bilaterally Cardio regular rate, regular rhythm and peripheral pulses 2+ throughout GI soft to palpation, non-tender and non-distended Extremity normal capillary refill and no clubbing, cyanosis or edema General Extremity: no tenderness to palpation of joints or extremities Skin no rashes or lesions noted General Skin Exam: turgor normal Lesions: no lesions Rashes: no rashes Neuro CN's II-XII intact bilaterally Speech: speech normal Motor Exam: strength 5/5 throughout; Negative for general weakness Psych thought process normal, cooperative and affect normal Appearance: appropriate Results Lab / Micro Data Result Diagrams: 02/05/23 15:25 02/05/23 15:25 Labs: Laboratory Results - last 24 hr 02/05/23 15:25: WBC 7.7, RBC 4.61, Hgb 14.0, Hct 43.6, MCV 94.6, MCH 30.4, MCHC 32.1, RDW Std Deviation 47.8 H, RDW Coeff of Yun 13.8, Plt Count 332, MPV 9.8, Immature Gran % (Auto) 0.300, Neut % (Auto) 61.9, Lymph % (Auto) 25.5, [place] % (Auto) 8.0, Eos % (Auto) 3.3, Baso % (Auto) 1.0, Absolute Neuts (auto) 4.7, Absolute Lymphs (auto) 1.95, Nucleated RBC % 0 02/05/23 15:25: Sodium 143, Potassium 3.8, Chloride 115 H, Carbon Dioxide 21.0, Anion Gap 7, BUN 26 H, Creatinine 1.02, Estim Creat Clear Calc 42.33, Est GFR (MDRD) Af Amer 69, Est GFR (MDRD) Non-Af 57 L, BUN/Creatinine Ratio 25.5 H, Glucose 112 H, Calcium 9.3, Troponin I High Sens 5 02/05/23 15:25: D-Dimer Quant (PE/DVT) 1.20 H* 02/05/23 15:46: Urine Color Brown, Urine Clarity Clear, Urine pH 6.5, Ur Specific [place] 1.020, Urine Protein 100 H, Urine Glucose (UA) Normal, Urine Ketones 5 H, Urine Occult Blood 250 H, Urine Nitrite Positive H, Urine Bilirubin 1 H, Urine Urobilinogen 1 H, Ur Leukocyte Esterase 100 H, Urine RBC > 100 SEEN, Urine WBC 50-100 SEEN, Ur Squamous Epith Cells 0-5 SEEN, Calcium Oxalate Crystal 1+, Urine Bacteria 0 SEEN, Urine Mucus 0 SEEN 02/05/23 19:19: Troponin I High Sens 8 Radiology Impression Chest X-Ray 02/05/23 15:50 IMPRESSION: No radiographic evidence of acute cardiopulmonary disease. Electronically Signed: Russell Amato MD at 16:19 EDT , Chest CTA 02/05/23 16:21 IMPRESSION: Normal CTA chest examination, without a demonstrated pulmonary embolism or arterial dissection. Cardiomegaly with probable pulmonary edema. Infection including atypical or viral pneumonia should also be considered in the differential. Electronically Signed: Russell Amato MD at 18:03 EDT , Abdomen/Pelvis CT 02/05/23 16:22 IMPRESSION: Partially obstructing 6 mm proximal right ureteral calculus. Electronically Signed: Russell Amato MD at 17:51 EDT , Assessment & Plan Assessment/Plan (1) Kidney stone: PLAN: admit for a stent (2) UTI (urinary tract infection): PLAN: treat infection with cipro (3) Paroxysmal atrial fibrillation: PLAN: on blood thinners (4) Essential hypertension: PLAN: continue with home meds.
[2023-02-05] MEDS: Acetaminophen 500 MG Tablet PO (20:30)
[2023-02-05] MEDS: 0.9% Normal Saline 1,000 ML 50 ML IV (20:30)
[2023-02-05] MEDS: Albuterol 2.5 MG/3 ML VIAL.NEB. INHALATION (20:59)
[2023-02-05] MEDS: Ciprofloxacin 400 MG/200 ML BAG 200 MG IV (21:08)
[2023-02-05] MEDS: Gabapentin 300 MG Capsule 900 MG PO (21:09)
[2023-02-05] MEDS: busPIRone 5 MG Tablet PO (21:09)
[2023-02-05] MEDS: Morphine 2 MG/ML Syringe IV (22:31)
[2023-02-05] MEDS: DiphenhydrAMINE 25 MG Capsule PO (23:09)
[2023-02-06] VITALS (10 sets, daily range): BP systolic 140–151; BP diastolic 82–98; PULSE 70–85; RESP 15–18; TEMP 36.1–36.6; O2SAT 95–100; BMI 42.9
--- NOTE | 2023-02-06 06:00 | EKG12_ITS ---
Test Reason : AM EKG Blood Pressure : / mmHG Vent. Rate : 078 BPM Atrial Rate : 174 BPM P-R Int : 000 ms QRS Dur : 082 ms QT Int : 402 ms P-R-T Axes : 000 005 009 degrees QTc Int : 458 ms Atrial fibrillation with premature ventricular or aberrantly conducted complexes Abnormal ECG When compared with ECG of 05-FEB-2023 15:22, MANUAL COMPARISON REQUIRED, DATA IS UNCONFIRMED Confirmed by MARKUS CM, WILMAR ([id number]), editorial director GRAY RICE ([id number]) on 02/07/2023 1:28:27 PM Referred By: LUCINA Confirmed By:ARMEN APARICIO MD
[2023-02-06] MEDS: Albuterol 2.5 MG/3 ML VIAL.NEB. INHALATION (07:27)
--- NOTE | 2023-02-06 07:32 | PCM.PN.GU ---
Subjective Subjective Patient admitted for a right ureteral calculi and urinary tract infection plan for cystoscopy stent placement today we will put Marisa on hold. Objective Data Objective Data Vital Signs: Vital Signs Temp Pulse Resp BP Pulse Ox O2 Del Method 97.8 F 70 18 143/87 H 99 Room Air 02/06/23 05:07 02/06/23 07:28 02/06/23 07:28 02/06/23 05:07 02/06/23 07:28 02/06/23 07:28 Oxygen Delivery Method Room Air Weight: 106.5 kg Body Mass Index (BMI) 42.9 Intake & Output: Intake and Output for Last 24 Hours 02/04/23 02/05/23 02/06/23 23:59 23:59 23:59 Intake Total 675 / 675 Output Total 1400 / 1400 Balance -725 / -725 Lab / Micro Data Result Diagrams: 02/05/23 15:25 02/05/23 15:25 Labs: Laboratory Results - last 24 hr 02/05/23 15:25: WBC 7.7, RBC 4.61, Hgb 14.0, Hct 43.6, MCV 94.6, MCH 30.4, MCHC 32.1, RDW Std Deviation 47.8 H, RDW Coeff of Yun 13.8, Plt Count 332, MPV 9.8, Immature Gran % (Auto) 0.300, Neut % (Auto) 61.9, Lymph % (Auto) 25.5, [place] % (Auto) 8.0, Eos % (Auto) 3.3, Baso % (Auto) 1.0, Absolute Neuts (auto) 4.7, Absolute Lymphs (auto) 1.95, Nucleated RBC % 0 02/05/23 15:25: Sodium 143, Potassium 3.8, Chloride 115 H, Carbon Dioxide 21.0, Anion Gap 7, BUN 26 H, Creatinine 1.02, Estim Creat Clear Calc 42.33, Est GFR (MDRD) Af Amer 69, Est GFR (MDRD) Non-Af 57 L, BUN/Creatinine Ratio 25.5 H, Glucose 112 H, Calcium 9.3, Troponin I High Sens 5 02/05/23 15:25: D-Dimer Quant (PE/DVT) 1.20 H* 02/05/23 15:46: Urine Color Brown, Urine Clarity Clear, Urine pH 6.5, Ur Specific [place] 1.020, Urine Protein 100 H, Urine Glucose (UA) Normal, Urine Ketones 5 H, Urine Occult Blood 250 H, Urine Nitrite Positive H, Urine Bilirubin 1 H, Urine Urobilinogen 1 H, Ur Leukocyte Esterase 100 H, Urine RBC > 100 SEEN, Urine WBC 50-100 SEEN, Ur Squamous Epith Cells 0-5 SEEN, Calcium Oxalate Crystal 1+, Urine Bacteria 0 SEEN, Urine Mucus 0 SEEN 02/05/23 19:19: Troponin I High Sens 8 Radiography Diagnostic Testing: Radiology Impression Chest X-Ray 02/05/23 15:50 IMPRESSION: No radiographic evidence of acute cardiopulmonary disease. Electronically Signed: Russell Amato MD at 16:19 EDT , Chest CTA 02/05/23 16:21 IMPRESSION: Normal CTA chest examination, without a demonstrated pulmonary embolism or arterial dissection. Cardiomegaly with probable pulmonary edema. Infection including atypical or viral pneumonia should also be considered in the differential. Electronically Signed: Russell Amato MD at 18:03 EDT , Abdomen/Pelvis CT 02/05/23 16:22 IMPRESSION: Partially obstructing 6 mm proximal right ureteral calculus. Electronically Signed: Russell Amato MD at 17:51 EDT ,
[2023-02-06] MEDS: Topiramate 50 MG Tablet PO (08:14)
[2023-02-06] MEDS: Metoprolol(XL)Succ 25 MG Tablet PO (08:14)
[2023-02-06] MEDS: Ciprofloxacin 400 MG/200 ML BAG 200 MG IV (08:27)
--- NOTE | 2023-02-06 10:42 | NURSING ---
Surgery Staff came to get pt via bed at this time. Pt out of room.
[2023-02-06] MEDS: Lactated Ringers 1,000 ML 15 ML IV (10:59)
[2023-02-06] MEDS: Lidocaine Jelly 2% 20 ML Syringe (URO-JET) 1 APPLIC (11:55)
--- NOTE | 2023-02-06 11:56 | OP.PCM_ITS ---
Report of Operation Date of Procedure: 02/06/23 Pre-Operative Diagnosis: Right obstructing ureteral calculi Post-Operative Diagnosis: Same Surgery/Procedure Performed:: Cystoscopy right retrograde pyelogram and right stent placement Description of Surgical Findings:: Patient was taken back to the operating room after induction of general anesthesia, the patient was placed in dorsolithotomy position. The urethra and genitals were prepped and draped in usual sterile fashion. Using a 21 [place] rigid cystourethroscope the entire length of the urethra was normal then went into the bladder. Identified the trigone the left and right ureteral orifice. I then cannulated the Right ureteral orifice and advanced a wire up into the kidney. I then backloaded a 5 [place] open ended catheter over the wire and injected contrast to delineate the anatomy. After the retrograde was performed I then used fluoroscopic images and guidance to advanced a wire up into the kidney and over the 0.038 glidewire I advanced a 6 [place] by 26 cm double pig tail stent. I then pulled the 0.038 Glidewire off and the stent coiled in the kidney bladder good position. The bladder was then drained. We confirmed the position of the stent by fluoroscopy. Patient anesthetic was reversed and was taken back to the PACU in good condition. Surgeon: Antoine Boogie Type of Anesthesia: MAC Drains: right stent Estimated Blood Loss (mL): 0 Admit VTE Documentation VTE Present on Admission: No VTE Mechan Device Prophylaxis: SCD's VTE Pharm Prophylaxis ordered?: No
--- NOTE | 2023-02-06 14:04 | CASEMGMT ---
RN CM NOTE: Pt being discharged. RN CM to room. Pt denies having any discharge planning needs/concerns at this time. Alicia ALVAREZN RN CM
[2023-02-06] MEDS: Acetaminophen 500 MG Tablet PO (14:44)
== END 2023-02-06 15:15 | disposition home or self-care (01) | DRG 660 ==
LOC: ED 18:49 → MS3 02-06 06:22
PROVIDERS: Admitting Provider Urology; Emergency Provider Emergency Medicine; PCP Internal Medicine; Visit Provider Urology
PROC: 0T768DZ Dilation of Right Ureter with Intraluminal Device, Via Natural or Artificial Opening Endoscopic (ICD-10-PCS; CPT 52332; principal; 2023-02-06 11:35)
DX: N20.1 Calculus of ureter (principal); N39.0 Urinary tract infection, site not specified; F32.A Depression, unspecified; I48.0 Paroxysmal atrial fibrillation; F41.9 Anxiety disorder, unspecified; I10 Essential (primary) hypertension; G89.29 Other chronic pain; R07.89 Other chest pain; Z79.01 Long term (current) use of anticoagulants; Z86.16 Personal history of COVID-19; N13.9 Obstructive and reflux uropathy, unspecified; Z86.711 Personal history of pulmonary embolism; Z86.718 Personal history of other venous thrombosis and embolism; Z79.899 Other long term (current) drug therapy
CPT/HCPCS: 36415; 71045; 71275; 74176; 76000; 80048; 81001; 84484; 85025; 85379; 87086; 93005; 94640; 96365; 96366; 96375; 99221; 99285; J7030; J7120; Q9967; C1769; C2617; G0378; J0744; J2405

== ENCOUNTER 2024-01-26 16:00 | Outpatient (RCR) | payer MEDICARE, SELFPAY ==
--- NOTE | 2023-12-27 16:59 | HP.PTEVAL ---
Patient's Visit Information Visit Information Visit Information: JOSLYN ABRAHAM is a 68 year old F referred to Physical Therapy by JUAN PABLO Borrero with a diagnosis of L2,L3, L4 B microdiscectomy and nerve decompression 03/10/23. Date of Evaluation: 12/27/23 Physical Therapist: FRANCISCO Lopes Visit Plan Frequency: 2x /Week Duration: 2 Months Plan: 2X/ week for 8 weeks for Neutral spine core stability (give as HEP too), LE strength, endurance activities, functional balance (curb steps, p/u objects from the floor, stairs), LE strength and maybe some UE strength as well. Subjective Subjective: March 10 had surgery L2,L3, L4 B microdiscectomy and nerve decompression. She had family issues and that prevented her from starting therapy. She was also in hospital for kidney stones and a stent. She fell in Oct 2022 and was in so much pain and neglected her teeth because she could not stand and she gained a bunch of weight and ended up in surgery in March of 2023. Her surgeon released her when she went back for a check up. But because of laying around so much she is so weak and so out of shape and no stamina. She is not doing any exercises but she is doing stairs at her daughters house and goes step two pattern. She does not leave the house that much. Even walking out to her car she is not steady and not sure footed. She has not steady on her feet. She has a hard time sitting and has to sit up straight. Bending and reaching for things off the floor she feels she will lose her balance or when she is tired she will notice that she will veer a little bit Objective Objective: Sit to stand: able to get up without using her arms. Gait: Walks with short stride and advancing leg barley passes stance leg. Pt very SOB walking back to treatment room and took her awhile to be able to regain breath Walked 340 feet 1 minute:43seconds very SOB during and after LE MMT: R hip flex 5.5 and L 4.8 R knee ext 5.8 and L 5.7 R knee flexion 5 and L 5.2 R shoulder AROM approx 120 and L WFL, B shoulder IR and ER WFL UE MMT: R shoulder Flex 3.7 and L 3.4 R shoulder ABD 3.4 and L 3.2 R Shoulder ER 4.5 and L 3.8 Balance/Special Test Scores Oswestry Low Back Score: 18 Goals Goal 1:: I HEP and or gym routine Goal Time Frame: 6-8 Weeks Goal 2:: Be able to walk 340 feet with less SOB and with less time (time at eval 1:43) Goal Time Frame: 6-8 Weeks Goal 3:: Pt to feel confident to walk across the parking lot without losing her balance Goal Time Frame: 6-8 Weeks Goal 4:: Be able to bead picker objects from the floor without feeling like she will fall over. Goal Time Frame: 6-8 Weeks Goal 5:: Increase LE strength (at the time of the eval: R hip flex 5.5 and L 4.8 R knee ext 5.8 and L 5.7 R knee flexion 5 and L 5.2) Goal Time Frame: 6-8 Weeks Rehabilitation Potential Rehabilitation Potential: Good Anticipated Interventions Patient/Client Instruction: Educate patient on: Condition and Plan of Care For the Purpose of:: To improve muscle performance and motor function, To improve ability to perform ADL's, To increase tolerance to activity/condition/position, To improve performance and independence with ADL's, To decrease level of supervision to perform tasks, To improve ability of physical actions for home/community/work/leisure, To improve gait and locomotor functions, To improve health of tissue, To increase flexibility/ROM, To improve endurance and To improve balance Therapeutic Exercise to Include: Strength training, Endurance training, Balance training, Postural training, Gait and locomotor training, Active ROM, Dynamic Lumbar Stabilization and Scapular Strength/Stabilization For the Purpose of:: To improve muscle performance and motor function, To improve ability to perform ADL's, To increase tolerance to activity/condition/position, To improve performance and independence with ADL's, To improve gait and locomotor functions, To improve endurance, To improve balance, To improve safety with gait and To assume or resume ADL's Functional Training to Include: Gait training For the Purpose of:: To improve gait and locomotor functions and To improve safety with gait Text: Thank you for the opportunity to evaluate your patient. For Medicare and Medicare HMO plans, please review the plan of care and approve it. It will need to be FAXED BACK to us at [phone] for Medicare purposes. For Medicare only, by signing this I certify the plan of care. Please let me know if there are questions or concerns regarding this plan of care. Physician Signature: Date:
--- NOTE | 2024-04-12 13:25 | HP.PT.NRP ---
Patient Information Patient Information: JOSLYN ABRAHAM was seen in my office for initial evaluation on 12/27/23. The following Plan of Care was established for this patient: POC Established Initial Frequency: 2x /Week Initial Duration: 2 Months Anticipated Interventions Patient/Client Instruction: Educate patient on: Condition and Plan of Care For the Purpose of:: To improve muscle performance and motor function, To improve ability to perform ADL's, To increase tolerance to activity/condition/position, To improve performance and independence with ADL's, To decrease level of supervision to perform tasks, To improve ability of physical actions for home/community/work/leisure, To improve gait and locomotor functions, To improve health of tissue, To increase flexibility/ROM, To improve endurance and To improve balance Therapeutic Exercise to Include: Strength training, Endurance training, Balance training, Postural training, Gait and locomotor training, Active ROM, Dynamic Lumbar Stabilization and Scapular Strength/Stabilization For the Purpose of:: To improve muscle performance and motor function, To improve ability to perform ADL's, To increase tolerance to activity/condition/position, To improve performance and independence with ADL's, To improve gait and locomotor functions, To improve endurance, To improve balance, To improve safety with gait and To assume or resume ADL's Functional Training to Include: Gait training For the Purpose of:: To improve gait and locomotor functions and To improve safety with gait Last Seen Last Seen: This patient was last seen in our office 01/26/24. Pertinent comments regarding their Physical therapy will appear below: ROSA PT At this point I will be discontinuing this patient from physical therapy. I would be happy to see this patient again in the future if found appropriate by the physician. Thank you! Lauren Kuhn, FRANCISCO Balance/Gait/Functional tests Balance/Special Test Scores Oswestry Low Back Score: 18
== END 2024-01-26 19:00 | disposition home or self-care (01) ==
LOC: PT 16:00
PROVIDERS: PCP Internal Medicine; Referring Provider Nurse Practitioner; Visit Provider Nurse Practitioner
DX: M48.061 Spinal stenosis, lumbar region without neurogenic claudication (principal); M96.1 Postlaminectomy syndrome, not elsewhere classified
CPT/HCPCS: 97110; 97116; 97162

== ENCOUNTER 2024-10-18 23:32 | Emergency (ER) | payer MEDICARE, SELFPAY ==
[2024-10-18 23:35] VITALS: BP 135/88; PULSE 123; RESP 18; TEMP 38.2; O2SAT 98
[2024-10-18 23:37] VITALS: BMI 46.6
[2024-10-19] MEDS: 0.9% Normal Saline (1000mL) 1,000 ML 999 ML IV (00:34)
[2024-10-19] MEDS: Acetaminophen 500 MG Tablet 1000 MG PO (00:35)
[2024-10-19 00:37] VITALS: BP 135/88; PULSE 107; RESP 26; TEMP 38.1; O2SAT 94
[2024-10-19 00:46] LABS: Absolute Lymphocyte Count 0.41 X10^3/uL (0.83-4.51); Absolute Neutrophil Count 6.8 X10^3/uL (2.0-7.7); Basophil# 0.04 X10^3/uL; Basophil% 0.5 % (0-1); Hematocrit 41.2 % (37-47); Hemoglobin 14.2 g/dL (12.0-15.0); Lymphocyte # 0.41 X10^3/ul (0.83-4.51); Lymphocyte % 5.3 % (19-41); Mean Corp Hgb Conc 34.5 g/dL (32-36); Mean Corpuscular Hgb 30.5 pg (27.0-32.0); Mean Corpuscular Volume 88.4 fL (81-99); Monocyte# 0.44 X10^3/uL; Monocyte% 5.7 % (0-10); NRBC Flagged by Analyzer 0 % (0-5); Neutrophil % 87.9 % (47-70); POSITIVE DIFFERENTIAL YES; Platelet Count 299 K/mm3 (150-450); RBC Distribution Width CV 13.2 % (11.6-14.6); Red Blood Count 4.66 M/mm3 (4.2-5.4); White Blood Count 7.7 K/mm3 (4.4-11.0)
--- NOTE | 2024-10-19 00:50 | RAD_ITS ---
INDICATION: cough EXAMINATION/TECHNIQUE: X-RAY - XR Chest 1 View COMPARISON: CR Chest, Feb 05 2023 3:49pm FINDINGS: LINES/DEVICES: None. LUNGS: Patchy groundglass opacities in the left lung base suggesting early pneumonia. MEDIASTINUM AND CARDIOVASCULAR STRUCTURES: Cardiac silhouette not enlarged. Central airways and mediastinal contour are unremarkable. BONES AND SOFT TISSUES: Unremarkable. RAD/Chest 1 View (Portable) IMPRESSION: Patchy groundglass opacities in the left lung base suggesting early pneumonia. Electronically Signed: Julissa Talavera MD at 2:50 EST ,
[2024-10-19 01:00] VITALS: BP 123/82; PULSE 96; RESP 18; TEMP 37.1; O2SAT 94
[2024-10-19 01:07] LABS: Anion Gap 8 (5-15); BUN 21 mg/dL (7-18); BUN/Creat Ratio 20.4 RATIO (10-20); Calcium,Total 10.4 mg/dL (8.5-10.1); Chloride 100 mmol/L (98-107); Creatinine, Serum 1.03 mg/dL (0.55-1.02); EST Glomerular Filtration Rate 56 mL/min (>60); Est Glom Filt Rate - Afr Amer 68 mL/min (>60); Glucose 140 mg/dL (74-106); Potassium 3.2 mmol/L (3.5-5.1); Sodium Level 135 mmol/L (136-145)
[2024-10-19 01:11] LABS: Mucous, Urine 0 SEEN /hpf (<or=2+); Squamous Epithelial Cells - UA 0 SEEN /hpf (5-10)
[2024-10-19 01:13] LABS: Lactic Acid 1.3 mmol/L (0.4-1.9)
[2024-10-19 01:13] LABS: Color, Urine Yellow (Yellow); Glucose, Dipstick Normal (Normal); Ketone-Dipstick Negative (Negative); Leukocyte Esterase-Dipstick 500 /ul (Negative); Nitrite-Dipstick Negative (Negative); Occult Blood-Urine 150 /ul (Negative); Protein-Dipstick 15 mg/dl (Negative); Specific Gravity, Urine 1.015 (1.002-1.030); Urine Bilirubin Dipstick Negative (Negative); Urine Clarity Sl. Cloudy (Clear); Urine Urobilinogen Normal (Normal)
[2024-10-19 01:20] LABS: Bacteria RARE /hpf (None Seen); Red Blood Cells-Urine 0-5 SEEN /hpf (0-5); White Blood Cells 0-5 SEEN /hpf (0-5)
[2024-10-19 01:34] VITALS: BP 123/82; PULSE 99; RESP 20; TEMP 36.8; O2SAT 93
[2024-10-19 01:51] VITALS: O2SAT 93
--- NOTE | 2024-10-19 03:18 | EX.ED.DYSGE1 ---
HPI History of Present Illness Chief Complaint: Weakness Informant: patient and family Narrative Narrative: Patient is a 69-year-old female with past medical history of hypertension chronic atrial fibrillation on Eliquis as well as anxiety and depression. She states that in the last 24 hours she developed mild congestion and cough and has had increasing weakness throughout the day. This evening she went to get up out of bed and was too weak to even hold herself up so she lowered herself to the ground. She denies striking her head or any loss of consciousness. She states there was no syncope. She reports that she simply was too weak to hold herself up. Based on her increasing weakness daughter has concern for an infectious process and therefore she was brought in for evaluation [facility] Medical History (Updated 10/19/24 @ 04:[address] Dav Sinha, ) UTI (urinary tract infection) Kidney stone Pneumonia due to COVID-19 virus Trigeminal neuralgia (~2000) Paroxysmal atrial fibrillation Essential hypertension Cervical radiculopathy Occipital neuritis Wears glasses DVT (deep venous thrombosis) TIA (transient ischemic attack) History of diverticulitis Heartburn Non-smoker Leg cramps History of edema Cardiology follow-up encounter History of irregular heartbeat Anxiety Depression Fall Leukocytosis Kidney stones Pulmonary embolism Home Medications ?Medication ?Instructions ?Recorded ?Last Taken ?Type apixaban 5 mg tablet (Eliquis) 5 mg PO BID 30 days #60 tabs 03/06/21 02/05/23 Rx biotin 5 mg tablet 5 mg PO DAILY SUPPLEMENT 12/16/22 02/05/23 History buspirone 5 mg tablet 5 mg PO BID 12/16/22 02/05/23 History cholecalciferol (vitamin D3) 25 50 mcg PO DAILY 12/16/22 Unknown History mcg (1,000 unit) tablet metoprolol succinate 25 mg 25 mg PO BID 12/16/22 02/05/23 History tablet,extended release 24 hr multivitamin 1 tab PO DAILY 12/16/22 02/05/23 History venlafaxine 75 mg capsule,extended 75 mg PO DAILY 12/16/22 02/05/23 History release 24 hr vitamin E (dl, acetate) 180 mg 180 mg PO DAILY 12/16/22 02/05/23 History (400 unit) capsule gabapentin 300 mg capsule 600 mg PO DAILY 01/04/23 02/05/23 History albuterol sulfate 90 mcg/actuation 1 inh inhalation Q6H SOB 02/05/23 02/05/23 History aerosol inhaler gabapentin 300 mg capsule 900 mg PO QHS 02/05/23 02/04/23 History topiramate 50 mg tablet 50 mg PO DAILY . 02/05/23 02/05/23 History ciprofloxacin HCl 500 mg tablet 500 mg PO BID #8 tabs 02/06/23 Unknown Rx (Cipro) hydrochlorothiazide 25 mg tablet 25 mg PO DAILY ordered by 02/28/23 Unknown History Carmichael oseltamivir 75 mg capsule (Tamiflu) 75 mg PO BID 5 days #10 caps 10/19/24 Unknown Rx Allergy/AdvReac Type Severity Reaction Status Date / Time amoxicillin Allergy Intermediate Itching Verified 10/18/24 23:35 Family History Mother Lung disease Father Kidney disease Surgical History History of cystoscopy (02/06/23) History of lithotripsy (03/12/21) Hx of colonoscopy History of 3 sections Hx of cholecystectomy Social History household members: none Smoking Status: Never smoker alcohol intake: never substance use type: does not use caffeine: Yes Type: tea ROS ROS ED Constitutional Constitutional ED: Reports chills and fever(s) Eyes Eyes: Denies change in vision ENT ENT ED: Reports rhinorrhea and sore throat Cardiovascular Cardiovascular: Reports palpitations and racing heartbeat; Denies chest pain Respiratory/Chest Respiratory/Chest: Reports cough and dyspnea Gastrointestinal Gastrointestinal: Reports nausea; Denies abdominal pain, diarrhea or vomiting Genitourinary Genitourinary ED: Denies dysuria Musculoskeletal Musculoskeletal: Reports myalgias Integumentary Denies rash Neurologic Neurologic: Reports headache(s) Hematologic/Lymphatic Hematologic/Lymphatic: Reports easy bleeding and easy bruising EXAM Physical Exam Const Vital Signs: 10/18/24 23:35 10/19/24 00:37 10/19/24 01:00 Temperature 100.7 F H 100.5 F H 98.8 F Temperature Source Oral Oral Oral Pulse Rate 123 H 107 H 96 Respiratory Rate 18 26 H 18 Respiratory Effort Respiratory Depth Respiratory Pattern Blood Pressure 135/88 H 135/88 H 123/82 H Blood Pressure Mean 103 103 95 Pulse Ox 98 94 94 Oxygen Delivery Method Room Air Room Air Room Air 10/19/24 01:34 10/19/24 01:51 10/19/24 01:51 Temperature 98.3 F Temperature Source Oral Pulse Rate 99 Respiratory Rate 20 H Respiratory Effort Normal Respiratory Depth Normal Respiratory Pattern Normal Normal Blood Pressure 123/82 H Blood Pressure Mean 95 Pulse Ox 93 Oxygen Delivery Method Room Air Room Air 10/19/24 03:48 Temperature 98.2 F Temperature Source Pulse Rate 83 Respiratory Rate 12 Respiratory Effort Respiratory Depth Respiratory Pattern Blood Pressure 124/84 H Blood Pressure Mean 97 Pulse Ox 94 Oxygen Delivery Method Positive well nourished, well developed and obese General Appearance ED: well developed; Negative for pallor Nutritional Appearance: obese HEENT Reports dry mucous membranes HEENT Narrative: He has mucosas hyperemic and boggy There is cobblestoning noted in the posterior pharynx consistent with sinus drainage without airway edema or compromise; no secondary findings to suggest infection Mouth ED: Yes dry mucous membranes Mouth: dry mucous membranes Eyes PERRL and EOMs intact bilaterally General Eye ED: Negative for scleral icterus Neck supple Neck Narrative: No nuchal rigidity or meningeal signs noted Chest Wall palpation of chest normal Resp normal respiratory effort Resp Narrative: Breath sounds are diminished throughout with faint rhonchi in the bilateral lobes without signs of respiratory distress Cardio Rate: tachycardic and other Other Details: Irregularly irregular rhythm with tachycardic rate consistent with history of chronic atrial fibrillation GI normal to inspection, nondistended, normoactive bowel sounds, non-tender, non-distended and no masses GI Narrative: No voluntary guarding or rigidity or pulsatile mass Auscultation: normoactive bowel sounds Palpation: soft Extremity normal to inspection Neuro oriented x3, CN's II-XII intact bilaterally and no sensory deficits noted Neuro Narrative: Cranial nerves II through XII are grossly intact there are no focal neurologic deficits GCS of 15 NIH stroke scale score of 0 Sensorium / Orientation: alert Motor Exam: strength 5/5 throughout Psych mental status grossly normal Skin no rashes or lesions noted Skin Narrative: Skin turgor is increased General Skin Exam: Negative for jaundice or pallor MDM MDM MDM Narrative Medical decision making narrative: Patient arrived to the ER febrile and tachycardic in atrial fibrillation but this is chronic in nature and the rapid ventricular response is most likely related to her fever. Patient and generalized weakness not focal and therefore I have low concern for an acute CVA and no need to activate a stroke alert. Her constellation symptoms are concerning for viral infection such as COVID versus influenza versus RSV. However patient may have acute kidney injury severe electro abnormality acute blood loss anemia or UTI. Basic labs were obtained which showed no clinically significant finding. Her viral swab was positive for influenza which correlates with her symptoms. Radiologist felt she was developing pneumonia but this could be viral pneumonia as she is not hypoxic or in respiratory distress there is no need for admission and with a positive influenza test there is no need for antibiotics. After receiving IV hydration and Tylenol the patient reported feeling somewhat better and now could ambulate as her generalized weakness has resolved. Therefore at this time she does not have septic changes there is no signs of an acute CVA she has a reason for feeling generally weak and that she is influenza A positive but as she is now able to ambulate he is otherwise safe for discharge Of note we did talk about obtaining a head CT based on her history of Eliquis use and her fall. The patient states she lowered herself to the ground and did not truly fall and therefore has low concern for internal/intracranial bleed and does not want a head CT obtained. History & Record Review Discussion w/independent historian: Patient and Family Lab Data Attestation: I reviewed the patient's lab results. Labs: Laboratory Results - last 24 hr 10/19/24 10/19/24 00:35 01:05 WBC 7.7 RBC 4.66 Hgb 14.2 Hct 41.2 MCV 88.4 MCH 30.5 MCHC 34.5 RDW Std Deviation 43.0 RDW Coeff of Yun 13.2 Plt Count 299 MPV 10.0 Immature Gran % (Auto) 0.600 Neut % (Auto) 87.9 H Lymph % (Auto) 5.3 L [place] % (Auto) 5.7 Eos % (Auto) 0.0 Baso % (Auto) 0.5 Absolute Neuts (auto) 6.8 Absolute Lymphs (auto) 0.41 L Nucleated RBC % 0 Sodium 135 L Potassium 3.2 L Chloride 100 Carbon Dioxide 27.0 Anion Gap 8 BUN 21 H Creatinine 1.03 H Est GFR (MDRD) Af Amer 68 Est GFR (MDRD) Non-Af 56 L BUN/Creatinine Ratio 20.4 H Glucose 140 H Lactic Acid 1.3 Calcium 10.4 H Urine Color Yellow Urine Clarity Sl. Cloudy Urine pH 6.0 Ur Specific [place] 1.015 Urine Protein 15 H Urine Glucose (UA) Normal Urine Ketones Negative Urine Occult Blood 150 H Urine Nitrite Negative Urine Bilirubin Negative Urine Urobilinogen Normal Ur Leukocyte Esterase 500 H Urine RBC 0-5 SEEN Urine WBC 0-5 SEEN Ur Squamous Epith Cells 0 SEEN Urine Bacteria RARE Urine Mucus 0 SEEN Radiography Diagnostic Testing: Clinical Impression(s) from Imaging Studies Chest X-Ray 10/19/24 00:50 IMPRESSION: Patchy groundglass opacities in the left lung base suggesting early pneumonia. Electronically Signed: Julissa Talavera MD at 2:50 EST , Chest x-ray as interpreted by the emergency medicine physician reveals groundglass opacities in the lung bases consistent with atelectasis Discharge Plan Triage Chief Complaint: Weakness Other Complaint: Cough ED Provider: Dav Sinha Dx/Rx/DC Orders Clinical Impression: Influenza A, Essential hypertension, Persistent atrial fibrillation, Current use of skilled nursing anticoagulation Instructions: ED Fever Control (Adult), ED Influenza (Adult) Prescriptions: New oseltamivir [Tamiflu] 75 mg capsule 75 mg PO BID 5 Days Qty: 10 0RF No Action venlafaxine 75 mg capsule,extended release 24hr 75 mg PO DAILY cholecalciferol (vitamin D3) 25 mcg (1,000 unit) tablet 50 mcg PO DAILY multivitamin Tablet 1 tab PO DAILY vitamin E (dl, acetate) 180 mg (400 unit) capsule 180 mg PO DAILY biotin 5 mg tablet 5 mg PO DAILY gabapentin 300 mg capsule 600 mg PO DAILY Eliquis 5 mg Tablet 5 mg PO BID 30 Days Qty: 60 0RF buspirone 5 mg Tablet 5 mg PO BID metoprolol succinate 25 mg Tablet Extended Release 24 Hr 25 mg PO BID albuterol sulfate 90 mcg/actuation Hfa Aerosol Inhaler 1 inh INHALATION Q6H topiramate 50 mg tablet 50 mg PO DAILY Patient Comments: TAKE 2 TABLETS BY MOUTH EVERY MORNING AND 1 IN THE EVENING gabapentin 300 mg Capsule 900 mg PO QHS ciprofloxacin HCl [Cipro] 500 mg tablet 500 mg PO BID Qty: 8 0RF hydrochlorothiazide 25 mg tablet 25 mg PO DAILY Primary Care Provider: Joe Carmichael Referrals: Joe Carmichael MD [Primary Care Provider] - Activity Restrictions/Additional Instructions: Please keep yourself well-hydrated and keep your temperature under control with 1 g of Tylenol 4 times a day. Use the Tamiflu as directed to help resolve the influenza faster and return to the ER should you have any further concerns or worsening of symptoms Print Language: Faroese Disposition Disposition: Home, Self Care Discharge Date/Time: 10/19/24 03:50
[2024-10-19 03:48] VITALS: BP 124/84; PULSE 83; RESP 12; TEMP 36.8; O2SAT 94
== END 2024-10-19 03:50 | disposition home or self-care (01) ==
PROVIDERS: Emergency Provider Emergency Medicine; PCP Internal Medicine; Visit Provider Emergency Medicine
DX: J10.00 Influenza due to other identified influenza virus with unspecified type of pneumonia (principal); I48.19 Other persistent atrial fibrillation; I10 Essential (primary) hypertension; E66.9 Obesity, unspecified; F41.9 Anxiety disorder, unspecified; F32.A Depression, unspecified; M54.12 Radiculopathy, cervical region; Z88.0 Allergy status to penicillin; Z79.01 Long term (current) use of anticoagulants; Z86.73 Personal history of transient ischemic attack (TIA), and cerebral infarction without residual deficits; Z86.718 Personal history of other venous thrombosis and embolism; Z86.711 Personal history of pulmonary embolism; Z79.899 Other long term (current) drug therapy
CPT/HCPCS: 71045; 80048; 81001; 83605; 85025; 87631; 96360; 96361; 99284; A4216